=== PATIENT | male | born 1970 | race Caucasian/White ===

== ENCOUNTER → 2017-05-25 19:11 | Outpatient (CLI) | payer MEDICAID, SELFPAY ==
[2017-05-25 22:02] LABS: Amphetamine Urine VISTA NEGATIVE (<1000 ng/mL); Barbiturate Urine VISTA NEGATIVE (< 200 ng/mL); Benzodiazepine Urine VISTA NEGATIVE (< 200 ng/mL); Cocaine Urine VISTA NEGATIVE (< 300 ng/mL); Ecstacy Urine VISTA NEGATIVE (< 500 ng/mL); Methadone Urine VISTA NEGATIVE (< 300 ng/mL); PCP Urine VISTA NEGATIVE (< 25 ng/mL); THC Urine VISTA NEGATIVE (< 50 ng/mL); Vista UDS pH Range 6
== END ==
PROVIDERS: Family Provider Family Medicine Geriatric Medicine; PCP Family Medicine Geriatric Medicine; Visit Provider Anesthesiology
DX: M54.16 Radiculopathy, lumbar region (principal)
CPT/HCPCS: 80307

== ENCOUNTER 2017-07-05 10:40 | Emergency (ER) | payer MEDICAID, SELFPAY ==
[2017-07-05 10:40] VITALS: BP 153/104; PULSE 101; RESP 24; TEMP 36.7; O2SAT 100; BMI 36.8
--- NOTE | 2017-07-05 10:54 | ED.VISSUMM ---
- ER Visit Summary Date of Service: 07/05/17 Chief Complaint: [] Rectal pain for a few days history of rectal masses History of Present Illness: The patient is a 47 M [] said rectal pain for a few days he has history of hypertension and he reports a history of developing some type of unspecified rectal mass possibly cyst or abscesses that require surgery indications had 5 or 6 surgeries related to these rectal masses most recently 2016 at a [place] hospital and then 2014 at a hospital in [place]. He was told he did not require additional surgery he does not know why he is developing these masses, he has no history of immunocompromised conditions his only past history is for hypertension is well controlled he is able to eat and drink without difficulty no fever he does complain of some discomfort with stooling but no blood per rectum no trauma Physical Examination: [] Unremarkable he is drinking a liquidy beverage in the room his HEENT exam is unremarkable neck is supple lungs are clear the heart tones are unremarkable the abdomen is obese but soft the rectal exam shows nothing acute he has some very mild discomfort to the rectal exam the prostate is not obviously tender there is no obvious fullness fluctuance or mass the rectal vault showed some runny brown stool, lower extremities are unremarkable the rest of his exam was unremarkable Test Results: [] Emergency Department Course and Treatment: [] Patient's labs are unremarkable, per radiology on CT there is a about a 2 cm possible abscess posterior rectum please see that report there is a potential additional satellite lesion. Patient's been medicated IV antibiotics of been started. I spoke with Dr. matamoros of surgery he came down to see the patient discussed outpatient plan which includes Augmentin Percocet management at home for a few days if not improved further options were discussed with the patient that he will pursue directly dr. beck in addition the patient understands that he can return to the emergency department if his symptoms change or intensified anyway but he is comfortable with discharge home Treatment Plan: [] Disposition: [] Home stable Impression: [] Rectal abscess history of same, causing rectal pain This note was generated with [employer] dictation software. It may contain incorrect words, spelling, and punctuation that were not noted in review of the chart prior to signing ED Disposition - Plan for ED Patient: Chief Complaint: Wound Prescriptions: Oxycodone HCl/Acetaminophen [Percocet 5/325] 1 - 2 tab PO Q4H PRN PRN 7 Days #30 tab PRN Reason: Pain Amoxicillin/Potassium Clav [Augmentin 875-125 Tablet] 1 ea PO BID #20 tab Docusate Sodium [Colace] 100 mg PO BID #20 cap Referrals: Eric Monzon Chi, MD [Primary Care Provider] -
--- NOTE | 2017-07-05 11:20 | CT_ITS ---
STUDY: CT PELVIS WITH CONTRAST REASON FOR EXAM: Male, 47 years old. Rectal pain and bleeding. Check for perianal/perirectal abscess. RADIATION DOSAGE (If Supplied By Facility): CTDIvol = ( 22.53 ) mGy, DLP = ( 1052.50 ) mGycm TECHNIQUE: Transaxial imaging of the pelvis was performed without oral contrast. 100 ml of Isovue 300 contrast was administered intravenously. Sagittal/coronal reconstructions reviewed. No GI contrast given due to the emergent nature of exam. Individualized dose optimization techniques were used for this CT. COMPARISON: None available. FINDINGS: CT mildly limited without GI contrast. Director Of Design scanogram imaging appears unremarkable. Normal urinary bladder with moderate distention seen and no focal enhancing lesion. Normal visualized small intestine. Normal visualized colon except the rectum shows circumferential thickening with narrowed lumen displaced anteriorly and the posterior wall rounded low-attenuation lesions, the largest is seen in the midline posteriorly approximate 2 cm diameter with central Hounsfield units 22.3 and adjacent slightly right anterolateral Satellite abnormal fluid collection is seen, proximal 0.9 cm diameter, both suspicious for rectal abscesses involving the posterior wall. Effacement is also seen of the presacral fat planes adjacent, slightly greater left versus right which may be due to inflammation/minimal fluid or postsurgical changes given history. No CT finding of free intraperitoneal air noted in this CT pelvis study. There is no pelvic or visualized inguinal region lymphadenopathy by CT size criteria identified. Prostate is approximately 4.55 x 4.0 cm, mildly enlarged. Normal visualized pelvic arteries. Normal abdominal wall without ventral/visualized inguinal bowel herniation identified. Visualized bones show moderate degenerative L4-L5 and severe degenerative L5-S1 with mild anterolisthesis L5 over S1 noted, grade I seen with associated bilateral L5 pars defects. In addition, right at least moderate posterior disc protrusion appears to impinge the dural sac at L4-L5 with moderate to severe spinal canal stenosis. CT/Pelvis WITH IV Contrast IMPRESSION: Posterior rectal wall tiny abscesses, largest is approximate 2 cm diameter until proven otherwise. Very low probability neoplasm/metastasis is not entirely excluded without clinical correlation. Presacral fascia planes with possible minimal fluid suggesting inflammatory process or postsurgical changes given history. Mild prostamegaly. ER physician notified and acknowledged above results by Dr. Penny via telephone 07/05/2017 at approximately 1:00 PM. L4-L5 at least moderate posterior disc protrusion appears to impinge the dural sac with moderate to severe spinal canal stenosis. Bilateral L5 pars defects with mild anterolisthesis L5 over S1 noted, grade 1. Electronically Signed: Horacio Penny, at 13:12 EDT Tel , Service support ,
[2017-07-05 11:36] LABS: Absolute Lymphocyte Count 1.76 X10^3/ul (0.83-4.51); Absolute Neutrophil Count 5.8 X10^3/uL (2.0-7.7); Basophil# 0.04 X10^3/uL; Basophil% 0.5 % (0-1); Eosinophils% 2.4 % (0-5); Hematocrit 42.4 % (40-54); Hemoglobin 14.4 g/dl (13.0-16.5); Lymphocyte # 1.76 X10^3/ul (4.0); Lymphocyte % 20.9 % (19-41); Mean Corpuscular Hgb 33.6 pg (27.0-32.0); Mean Corpuscular Volume 99.1 fL (80-94); Monocyte# 0.57 X10^3/uL; Monocyte% 6.8 % (0-10); Neutrophil # 5.83 X10^3/uL (2.7-7.7); Neutrophil % 68.9 % (47-70); Platelet Count 223 K/mm3 (150-450); Red Blood Count 4.28 M/mm3 (4.6-6.2); White Blood Count 8.4 K/mm3 (4.4-11.0)
[2017-07-05] MEDS: 0.9% Normal Saline 1,000 ML 125 ML IV (11:36)
[2017-07-05] MEDS: Ondansetron 4 MG/2 ML Vial IV (11:36)
[2017-07-05] MEDS: morphine 8 MG/ML Syringe IV (11:36)
[2017-07-05 11:39] LABS: POSITIVE COUNT NO; POSITIVE DIFFERENTIAL NO; POSITIVE MORPHOLOGY NO
[2017-07-05 11:50] LABS: AST(SGOT) 30 U/L (15-37); Alanine Aminotransfer ALT/SGPT 24 U/L (16-61); Albumin, Serum 3.7 g/dL (3.2-5.0); Alkaline Phosphatase 109 U/L (45-117); Anion Gap 9 (5-15); BUN 11 mg/dL (7-18); BUN/Creat Ratio 8.1 RATIO (10-20); Bilirubin, Direct 0.07 mg/dL (0.00-0.30); Calcium,Total 8.6 mg/dL (8.5-10.1); Chloride 103 mmol/L (98-107); Creatinine, Serum 1.35 mg/dL (0.70-1.30); EST Glomerular Filtration Rate 61 mL/min (>60); Est Glom Filt Rate - Afr Amer 73 mL/min (>60); Globulin 5.2 g/dL (2.2-4.2); Glucose 91 mg/dL (74-106); Lipase 133 U/L (73-393); Potassium 4.2 mmol/L (3.5-5.1); Protein, Total 8.9 g/dL (6.4-8.2); Sodium Level 139 mmol/L (136-145)
[2017-07-05 11:51] LABS: Bacteria 0 SEEN /hpf (None Seen); Mucous, Urine 0 SEEN /hpf (<or=2+)
[2017-07-05 11:56] LABS: Color, Urine Yellow (Yellow); Glucose, Dipstick Normal (Normal); Ketone-Dipstick Negative (Negative); Leukocyte Esterase-Dipstick 25 /ul (Negative); Nitrite-Dipstick Negative (Negative); Occult Blood-Urine Negative /ul (Negative); Protein-Dipstick Negative (Negative); Specific Gravity, Urine 1.015 (1.002-1.030); Urine Bilirubin Dipstick Negative (Negative); Urine Clarity Clear (Clear); Urine Urobilinogen 1 mg/dl (Normal)
[2017-07-05 12:03] LABS: Red Blood Cells-Urine 0-5 SEEN /hpf (0-5); Squamous Epithelial Cells - UA 0-5 SEEN /hpf (0-5); White Blood Cells 5-10 SEEN /hpf (0-5)
[2017-07-05] MEDS: Morphine 4 MG/ML Syringe IV ×2 (14:07→15:28)
--- NOTE | 2017-07-05 14:44 | PCM.CONS.GEN ---
Problem List (1) Perirectal abscess Status: Acute Reason for Consult Date of Consultation: 07/05/17 Reason for Consultation: Perirectal abscess History of Present Illness: The patient is a 47 year old M who is here for rectal pain. He has had several surgeries in the past by colorectal surgeons for recurrent abscesses and fistulas. He says he does not have diarrhea or blood in his stool on a chronic basis and has no history of Crohn's disease. He reports the pain started a few days ago. He says he feels very full like he has to have a bowel movement. He has no fevers or chills. Past Medical History Allergies diphenhydramine HCl [From Benadryl] Allergy (Verified 07/05/17 11:40) Rash ibuprofen Allergy (Verified 07/05/17 11:40) Anaphylaxis Home Medications: Ambulatory Orders Medication Instructions Recorded traMADol [Ultram] 50 mg PO Q6H PRN PRN #10 tablet 05/14/13 Atorvastatin Calcium [Lipitor] 40 mg PO QHS 07/05/17 Gabapentin [Gralise] 600 mg PO BID 07/05/17 Losartan Potassium [Cozaar] 100 mg PO DAILY 07/05/17 Surgical History: - - Multiple rectal abscess drainages Smoking Status: Current every day smoker - *Family History Maternal History Items: No pertinent history Review of Systems Constitutional: Denies: Anorexia, Chills, Fever HEENT: Denies: Difficulty Swallowing Cardiovascular: Denies: Chest Pain Respiratory: Denies: Cough, Pleuritic Pain Gastrointestinal: Reports: - - Rectal pain. Denies: Abdominal Pain Genitourinary: Denies: Dysuria Neurological: Denies: Balance problems, Blurred vision Psychiatric: Denies: Anxiety, Depression Patient Problems: Active and Suspected Problems Perirectal abscess (Acute) - Physical Exam General: Alert, Cooperative HEENT: Atraumatic, PERRLA, EOMI Oral: Moist Mucosa Neck: Supple Lungs: Clear to auscultation, Normal air movement Cardiovascular: Regular rate, Regular Rhythm Abdomen: Soft, Non Tender, Non-Distended Extremities: No clubbing Skin: No rashes Musculoskeletal: No Muscle Wasting Neurological: Cranial nerves II-XII grossly intact Psych/Mental Status: Normal Affect, Appropriate Vital Signs Temp Pulse Resp BP Pulse Ox 98.1 F 101 H 24 H 153/104 H 100 07/05/17 10:40 07/05/17 10:40 07/05/17 10:40 07/05/17 10:40 07/05/17 10:40 Oxygen Delivery Method Room Air Weight: 263 lb 10.766 oz Body Mass Index (BMI) 36.8 Laboratory Tests Past 24 Hrs 07/05/17 07/05/17 07/05/17 11:25 11:25 11:45 WBC 8.4 RBC 4.28 L Hgb 14.4 Hct 42.4 MCV 99.1 H MCH 33.6 H MCHC 34.0 RDW 16.0 H RDW Differential 57.0 H Plt Count 223 MPV 11.0 Immature Gran % (Auto) 0.500 Neut % (Auto) 68.9 Lymph % (Auto) 20.9 [place] % (Auto) 6.8 Eos % (Auto) 2.4 Baso % (Auto) 0.5 Absolute Neuts (auto) 5.8 Absolute Lymphs (auto) 1.76 Total Counted Not Reportable Sodium 139 Potassium 4.2 Chloride 103 Carbon Dioxide 27.0 Anion Gap 9 BUN 11 Creatinine 1.35 H Estim Creat Clear Calc 73.60 Est GFR (MDRD) Af Amer 73 Est GFR (MDRD) Non-Af 61 BUN/Creatinine Ratio 8.1 L Glucose 91 Calcium 8.6 Total Bilirubin 0.40 Direct Bilirubin 0.07 AST 30 ALT 24 Alkaline Phosphatase 109 Total Protein 8.9 H Albumin 3.7 Globulin 5.2 H Lipase 133 Urine Color Yellow Urine Clarity Clear Urine pH 6.0 Ur Specific [place] 1.015 Urine Protein Negative Urine Glucose (UA) Normal Urine Ketones Negative Urine Occult Blood Negative Urine Nitrite Negative Urine Bilirubin Negative Urine Urobilinogen 1 H Ur Leukocyte Esterase 25 H Urine RBC 0-5 SEEN Urine WBC 5-10 SEEN Ur Squamous Epith Cells 0-5 SEEN Urine Bacteria 0 SEEN Urine Mucus 0 SEEN Clinical Impression(s) from Imaging Studies Pelvis CT 07/05/17 11:20 IMPRESSION: Posterior rectal wall tiny abscesses, largest is approximate 2 cm diameter until proven otherwise. Very low probability neoplasm/metastasis is not entirely excluded without clinical correlation. Presacral fascia planes with possible minimal fluid suggesting inflammatory process or postsurgical changes given history. Mild prostamegaly. ER physician notified and acknowledged above results by Dr. Penny via telephone 07/05/2017 at approximately 1:00 PM. L4-L5 at least moderate posterior disc protrusion appears to impinge the dural sac with moderate to severe spinal canal stenosis. Bilateral L5 pars defects with mild anterolisthesis L5 over S1 noted, grade 1. Electronically Signed: Horacio Penny, at 13:12 EDT Tel , Service support , Assessment/Plan Active and Suspected Problems Perirectal abscess (Acute) 47-year-old male with perirectal abscesses 1. Patient CT shows multiple abscesses posteriorly in the perirectal area. These are very high up and are not seen externally. There are also small. The largest is 2 cm. His white count is normal he is having no fevers or chills. 2. I recommend trying to treat these conservatively with antibiotics as they are not amenable to open drainage externally. If the patient worsens in any way I will take him for internal drainage and repeat a CAT scan. I will provide the patient with pain medication and antibiotics and will see him in 1 week in the office. If he worsens at any time between now and then I have advised him to call the hospital or my office. Neymar Perez MD Pager: [facility] [address], [address] [address] Office:
--- NOTE | 2017-07-05 14:54 | CON.PCM_ITS ---
Problem List (1) Perirectal abscess Status: Acute Reason for Consult Date of Consultation: 07/05/17 Reason for Consultation: Perirectal abscess History of Present Illness: The patient is a 47 year old M who is here for rectal pain. He has had several surgeries in the past by colorectal surgeons for recurrent abscesses and fistulas. He says he does not have diarrhea or blood in his stool on a chronic basis and has no history of Crohn's disease. He reports the pain started a few days ago. He says he feels very full like he has to have a bowel movement. He has no fevers or chills. Past Medical History Allergies diphenhydramine HCl [From Benadryl] Allergy (Verified 07/05/17 11:40) Rash ibuprofen Allergy (Verified 07/05/17 11:40) Anaphylaxis Home Medications: Ambulatory Orders Medication Instructions Recorded traMADol [Ultram] 50 mg PO Q6H PRN PRN #10 tablet 05/14/13 Atorvastatin Calcium [Lipitor] 40 mg PO QHS 07/05/17 Gabapentin [Gralise] 600 mg PO BID 07/05/17 Losartan Potassium [Cozaar] 100 mg PO DAILY 07/05/17 Surgical History: - - Multiple rectal abscess drainages Smoking Status: Current every day smoker - *Family History Maternal History Items: No pertinent history Review of Systems Constitutional: Denies: Anorexia, Chills, Fever HEENT: Denies: Difficulty Swallowing Cardiovascular: Denies: Chest Pain Respiratory: Denies: Cough, Pleuritic Pain Gastrointestinal: Reports: - - Rectal pain. Denies: Abdominal Pain Genitourinary: Denies: Dysuria Neurological: Denies: Balance problems, Blurred vision Psychiatric: Denies: Anxiety, Depression Patient Problems: Active and Suspected Problems Perirectal abscess (Acute) - Physical Exam General: Alert, Cooperative HEENT: Atraumatic, PERRLA, EOMI Oral: Moist Mucosa Neck: Supple Lungs: Clear to auscultation, Normal air movement Cardiovascular: Regular rate, Regular Rhythm Abdomen: Soft, Non Tender, Non-Distended Extremities: No clubbing Skin: No rashes Musculoskeletal: No Muscle Wasting Neurological: Cranial nerves II-XII grossly intact Psych/Mental Status: Normal Affect, Appropriate Vital Signs Temp Pulse Resp BP Pulse Ox 98.1 F 101 H 24 H 153/104 H 100 07/05/17 10:40 07/05/17 10:40 07/05/17 10:40 07/05/17 10:40 07/05/17 10:40 Oxygen Delivery Method Room Air Weight: 263 lb 10.766 oz Body Mass Index (BMI) 36.8 Laboratory Tests Past 24 Hrs 07/05/17 07/05/17 07/05/17 11:25 11:25 11:45 WBC 8.4 RBC 4.28 L Hgb 14.4 Hct 42.4 MCV 99.1 H MCH 33.6 H MCHC 34.0 RDW 16.0 H RDW Differential 57.0 H Plt Count 223 MPV 11.0 Immature Gran % (Auto) 0.500 Neut % (Auto) 68.9 Lymph % (Auto) 20.9 [place] % (Auto) 6.8 Eos % (Auto) 2.4 Baso % (Auto) 0.5 Absolute Neuts (auto) 5.8 Absolute Lymphs (auto) 1.76 Total Counted Not Reportable Sodium 139 Potassium 4.2 Chloride 103 Carbon Dioxide 27.0 Anion Gap 9 BUN 11 Creatinine 1.35 H Estim Creat Clear Calc 73.60 Est GFR (MDRD) Af Amer 73 Est GFR (MDRD) Non-Af 61 BUN/Creatinine Ratio 8.1 L Glucose 91 Calcium 8.6 Total Bilirubin 0.40 Direct Bilirubin 0.07 AST 30 ALT 24 Alkaline Phosphatase 109 Total Protein 8.9 H Albumin 3.7 Globulin 5.2 H Lipase 133 Urine Color Yellow Urine Clarity Clear Urine pH 6.0 Ur Specific [place] 1.015 Urine Protein Negative Urine Glucose (UA) Normal Urine Ketones Negative Urine Occult Blood Negative Urine Nitrite Negative Urine Bilirubin Negative Urine Urobilinogen 1 H Ur Leukocyte Esterase 25 H Urine RBC 0-5 SEEN Urine WBC 5-10 SEEN Ur Squamous Epith Cells 0-5 SEEN Urine Bacteria 0 SEEN Urine Mucus 0 SEEN Clinical Impression(s) from Imaging Studies Pelvis CT 07/05/17 11:20 IMPRESSION: Posterior rectal wall tiny abscesses, largest is approximate 2 cm diameter until proven otherwise. Very low probability neoplasm/metastasis is not entirely excluded without clinical correlation. Presacral fascia planes with possible minimal fluid suggesting inflammatory process or postsurgical changes given history. Mild prostamegaly. ER physician notified and acknowledged above results by Dr. Penny via telephone 07/05/2017 at approximately 1:00 PM. L4-L5 at least moderate posterior disc protrusion appears to impinge the dural sac with moderate to severe spinal canal stenosis. Bilateral L5 pars defects with mild anterolisthesis L5 over S1 noted, grade 1. Electronically Signed: Horacio Penny, at 13:12 EDT Tel , Service support , Assessment/Plan Active and Suspected Problems Perirectal abscess (Acute) 47-year-old male with perirectal abscesses 1. Patient CT shows multiple abscesses posteriorly in the perirectal area. These are very high up and are not seen externally. There are also small. The largest is 2 cm. His white count is normal he is having no fevers or chills. 2. I recommend trying to treat these conservatively with antibiotics as they are not amenable to open drainage externally. If the patient worsens in any way I will take him for internal drainage and repeat a CAT scan. I will provide the patient with pain medication and antibiotics and will see him in 1 week in the office. If he worsens at any time between now and then I have advised him to call the hospital or my office. Neymar Perez MD Pager: [facility] [address], [address] [address] Office:
--- NOTE | 2017-07-05 15:13 | DCINST.ED_ITS ---
ED Disposition - Plan for ED Patient: Chief Complaint: Wound Instructions: ED Lilo Anal Abscess Abx Only Prescriptions: Oxycodone HCl/Acetaminophen [Percocet 5/325] 1 - 2 tab PO Q4H PRN PRN 7 Days # 30 tab PRN Reason: Pain Amoxicillin/Potassium Clav [Augmentin 875-125 Tablet] 1 ea PO BID #20 tab Docusate Sodium [Colace] 100 mg PO BID #20 cap Referrals: Eric Monzno Chi, MD [Primary Care Provider] -
[2017-07-05 16:41] VITALS: BP 159/100; PULSE 98; RESP 16; O2SAT 97
[2017-07-05 16:44] VITALS: BP 159/101; PULSE 98; RESP 16; O2SAT 97
== END 2017-07-05 16:45 | disposition home or self-care (01) ==
PROVIDERS: Emergency Provider Emergency Medicine; Family Provider Family Medicine Geriatric Medicine; PCP Family Medicine Geriatric Medicine
DX: K61.1 Rectal abscess (principal); K62.89 Other specified diseases of anus and rectum; I10 Essential (primary) hypertension; Z87.19 Personal history of other diseases of the digestive system; Z79.899 Other long term (current) drug therapy
CPT/HCPCS: 72193; 80048; 80076; 81001; 83690; 85025; 87086; 87088; 96361; 96365; 96366; 96367; 96374; 96375; 96376; 99283; J7030; Q9967; A4216; J0744; J2405

== ENCOUNTER → 2017-07-11 10:25 | Outpatient (CLI) | payer MEDICAID, SELFPAY ==
[2017-07-11 11:30] LABS: Absolute Lymphocyte Count 2.97 X10^3/ul (0.83-4.51); Absolute Neutrophil Count 4.8 X10^3/uL (2.0-7.7); Basophil# 0.04 X10^3/uL; Basophil% 0.5 % (0-1); Eosinophil# 0.21 X10^3/uL; Eosinophils% 2.4 % (0-5); Hematocrit 41.2 % (40-54); Hemoglobin 13.7 g/dl (13.0-16.5); Lymphocyte # 2.97 X10^3/ul (4.0); Lymphocyte % 34.3 % (19-41); Mean Corp Hgb Conc 33.3 g/gl (32-36); Mean Corpuscular Hgb 33.1 pg (27.0-32.0); Mean Corpuscular Volume 99.5 fL (80-94); Mean Platelet Vol. 10.6 fl (6.2-12.0); Monocyte# 0.54 X10^3/uL; Monocyte% 6.2 % (0-10); Neutrophil # 4.79 X10^3/uL (2.7-7.7); Neutrophil % 55.3 % (47-70); Platelet Count 305 K/mm3 (150-450); RBC Distribution Width CV 16.2 % (11.6-14.6); RBC Distribution Width SD 58.8 fl (35.1-43.9); Red Blood Count 4.14 M/mm3 (4.6-6.2); White Blood Count 8.7 K/mm3 (4.4-11.0)
[2017-07-11 11:31] LABS: POSITIVE COUNT NO; POSITIVE DIFFERENTIAL NO; POSITIVE MORPHOLOGY NO
[2017-07-11 11:54] LABS: ALB/GLOB Ratio 0.7 RATIO (0.9-2.4); AST(SGOT) 24 U/L (15-37); Alanine Aminotransfer ALT/SGPT 26 U/L (16-61); Albumin, Serum 3.6 g/dL (3.2-5.0); Alkaline Phosphatase 99 U/L (45-117); Anion Gap 8 (5-15); BUN 12 mg/dL (7-18); BUN/Creat Ratio 9.5 RATIO (10-20); Calcium,Total 8.3 mg/dL (8.5-10.1); Chloride 106 mmol/L (98-107); Creatinine, Serum 1.26 mg/dL (0.70-1.30); EST Glomerular Filtration Rate 66 mL/min (>60); Est Glom Filt Rate - Afr Amer 80 mL/min (>60); Globulin 5.3 g/dL (2.2-4.2); Glucose 84 mg/dL (74-106); Potassium 4.2 mmol/L (3.5-5.1); Protein, Total 8.9 g/dL (6.4-8.2); Sodium Level 139 mmol/L (136-145)
== END ==
PROVIDERS: Family Provider Family Medicine Geriatric Medicine; PCP Family Medicine Geriatric Medicine; Visit Provider Family Medicine Geriatric Medicine
DX: I10 Essential (primary) hypertension (principal)
CPT/HCPCS: 36415; 80053; 84443; 85025

== ENCOUNTER → 2017-07-17 10:04 | Outpatient (CLI) | payer MEDICAID, SELFPAY ==
--- NOTE | 2017-07-17 10:45 | MRI_ITS ---
MR Spine Lumbar WO/W Contrast INDICATION: radiculopathy, post lami syndrome, lbp, right leg pain, hx prev surgery 12-29-16, pain worse since surgery COMPARISON: CT pelvis July 05, 2017 TECHNIQUE: Multiplanar multisequence MRI examination of the lumbar spine without and with IV contrast. 10 mL Gadavist were given intravenously. FINDINGS: There is evidence of L5-S1 evidence of right-sided laminectomy and apparently right sided microdiscectomy without evidence of hardware placement. There is stable 7 mm anterolisthesis of L5 on S1, otherwise normal lumbar lordosis. At the level of surgery there is fluid and enhancing material seen extending along the surgical access posteriorly to the L4-5 level and right laterally along the right L4 and L5 spinous processes. Enhancing material is seen in the right hemilaminectomy defect, the right epidural space and there is enhancement of the right lateral aspect of the L4 superior endplate and L5 inferior endplate. There is no evidence of associated fluid collection in the L4-5 disc space and no evidence of bone marrow enhancement or edema. Findings appear therefore postsurgical and there is no convincing evidence of infection. The conus is located at the T12 level and is morphologically unremarkable. There is normal distribution of the nerve roots of the cauda equina. The dural sac is normal in caliber at all levels and there is no evidence of mass effect on to the cauda equina. T12-L1 level, L1-L2 level, L2-3 level and L3-4 level are unremarkable. L4-5 level demonstrates degenerative disc disease with disc dehydration, and decrease in disc height. The disc is circumferentially bulging and there is a superimposed right paracentral focal disc protrusion with disc material extending into the right lateral recess. Disc osteophytes are seen extending into the right new foramen. Combination of the findings result in minimal spinal canal and left neuroforaminal narrowing and moderate to severe right neuroforaminal stenosis. L5-S1 level demonstrate degenerative and postsurgical changes as detailed above. Spinal canal and neuroforamina are mildly narrowed. MRI/Spine Lumbar W/WO Contrast IMPRESSION: Postsurgical changes from L5-S1 right hemilaminectomy with postsurgical enhancement likely due to granulation tissue. No convincing evidence of infection. Mild spinal canal and bilateral neuroforaminal narrowing at this level. Degenerative disc disease at L4-5 with posterior disc bulging and focal disc protrusion into the right lateral recess resulting in right lateral recess stenosis and severe right neuroforaminal stenosis at this level. at 1552 Reported and signed by: Lauren Mckeon MD Electronically Signed: Lauren Mckeon MD at 14:50 EDT Tel , Service support ,
== END ==
PROVIDERS: Family Provider Family Medicine Geriatric Medicine; PCP Family Medicine Geriatric Medicine; Visit Provider Anesthesiology
DX: M54.16 Radiculopathy, lumbar region (principal); M96.1 Postlaminectomy syndrome, not elsewhere classified
CPT/HCPCS: 72158; A9585

== ENCOUNTER → 2017-07-23 09:34 | Outpatient (CLI) | payer MEDICAID, SELFPAY ==
--- NOTE | 2017-07-23 09:36 | CT_ITS ---
STUDY: CT ABDOMEN AND PELVIS WITH CONTRAST REASON FOR EXAM: Male, 47 years old. Perirectal abscess. RADIATION DOSAGE (If Supplied By Facility): CTDIvol = ( 16.91 ) mGy, DLP = ( 1350.07 ) mGycm TECHNIQUE: Transaxial images were obtained from the dome of the diaphragm to the symphysis pubis with oral contrast. 100 ml of Isovue 300 contrast was administered. Sagittal and coronal images were reconstructed. Individualized dose optimization techniques were used for this CT. COMPARISON: Comparison is made with prior study dated July 05, 2017. FINDINGS: The visualized lung bases are unremarkable. The visualized portions of the heart are within normal limits. There is decreased attenuation of the liver consistent with steatosis. Normal gallbladder and extrahepatic biliary system. Normal spleen. Normal pancreas. Normal bilateral adrenal glands. Normal right kidney. Normal left kidney. There is a small hiatal hernia. Normal small intestine. A moderate amount of fecal material is seen in the sigmoid colon. Increased markings are seen in the pelvic fat. There is a 1.4 cm x 1.8 cm rounded hypodensity along the posterior aspect of the rectum. This may correlate to the clinically diagnosed perirectal abscess. This has decreased in size as compared to prior study. The appendix is visualized and appears normal. Normal abdominal aorta. Normal inferior vena cava. Normal retroperitoneum. Normal urinary bladder. Small inguinal lymph nodes are seen. These are unchanged. Normal abdominal wall. Stable disc space narrowing and degeneration at the L4-L5 and L5-S1 levels. Stable mild anterior listhesis of L5 on S1 with spondylolysis of the pars interarticularis of the L5 vertebrae. CT/Abdomen/Pelvis WITH Contrast IMPRESSION: Persistent posterior rectal wall thickening with focal area of decreased attenuation. There has been improvement as compared to prior study. Electronically Signed: Grzegorz Mcnally MD at 12:30 EDT Tel [phone], Service support ,
== END ==
PROVIDERS: Family Provider Family Medicine Geriatric Medicine; PCP Family Medicine Geriatric Medicine; Visit Provider Surgery
DX: K61.1 Rectal abscess (principal)
CPT/HCPCS: 74177; Q9967; A4216

== ENCOUNTER 2017-08-03 13:30 | Day surgery (SDC) | payer MEDICAID, SELFPAY ==
[2017-08-03 13:58] VITALS: BP 150/99; PULSE 88; RESP 16; TEMP 36.9; O2SAT 95; BMI 37.3
--- NOTE | 2017-08-03 14:47 | RAD_ITS ---
PROCEDURE: Caudal block. DATE OF EXAMINATION: August 03, 2017. INDICATION: Male, 47 years old. Caudal block. Comment: Fluoroscopy services provided for clinical procedure. Please refer to operating physician's procedure note for additional detail. PHYSICIAN: Bhumika FLUOROSCOPY TIME (if supplied): (0:10) minutes/seconds PROCEDURE/TECHNIQUE: 3, intraprocedural, fluoroscopic spot images of the sacrum. A single spinal needle is identified in the midline with tip in the region the sacral hiatus. A small amount of contrast has been injected to evaluate appropriate needle tip placement. There is no significant incidental finding. RAD/Fluor Guidance for Spine Inj IMPRESSION: There is no significant incidental finding. Comment: Fluoroscopy services provided for clinical procedure. Please refer to operating physician's procedure note for additional detail. Electronically Signed: Fermín Rawls MD at 15:31 EDT , Service support ,
[2017-08-03] MEDS: Triamcinolone Acetonide 40 MG/ML Vial ×2 (14:53→14:54)
--- NOTE | 2017-08-03 14:59 | PCM.DC ---
- Discharge Diagnoses Current Active Problems: Lower back pain and radicular leg pain Lumbar postlaminectomy syndrome with lumbar radiculopathy You will use the following diet at home:: No restrictions Your food should be the consistency of: Regular Discharge Activity: Return to Normal Activity Return to work on:: 08/06/17 May shower in (days): 1 May resume sexual activity in: No Restrictions Weight Bearing Status: Partial weight bearing Call your doctor if your incision/area has: Continuous Slow Oozing, Foul Smelling Discharge - Have a good day vector Call your doctor if you observe: Uncontrolled pain - call the office if you need anything okay I am up there until 6:00 Allergies/Adverse Reactions: Allergies diphenhydramine HCl [From Benadryl] Allergy (Verified 07/05/17 11:40) Rash ibuprofen Allergy (Verified 07/05/17 11:40) Anaphylaxis Medications to take at Discharge traMADol [Ultram] 50 mg PO Q6H PRN PRN #10 tab 05/14/13 Atorvastatin Calcium [Lipitor] 40 mg PO QHS 07/05/17 Gabapentin [Gralise] 600 mg PO BID 07/05/17 Losartan Potassium [Cozaar] 100 mg PO DAILY 07/05/17 amoxicillin 875 mg-potassium clavulanate 125 mg tablet 1 tab PO BID #20 tab 07/12/17 Levothyroxine [Synthroid] 50 mcg PO DAILY 08/03/17 Primary Care Physician: Eric Monzon Chi, MD [Primary Care Provider] -
--- NOTE | 2017-08-03 15:01 | PCM.OPRPT ---
Problem List (1) Postlaminectomy syndrome, not elsewhere classified Status: Acute (2) Postlaminectomy syndrome, not elsewhere classified Status: Acute (3) Radiculopathy of lumbar region Status: Acute (4) Radiculopathy of lumbar region Status: Acute (5) Intervertebral disc disorder with radiculopathy of lumbar region Status: Acute (6) Intervertebral disc disorder with radiculopathy of lumbar region Status: Acute (7) Low back pain with right-sided sciatica Status: Acute Qualifiers: Chronicity: chronic Back pain laterality: right Qualified Code(s): M54.41 - Lumbago with sciatica, right side; G89.29 - Other chronic pain (8) Low back pain with right-sided sciatica Status: Acute Report of Operation Date of Procedure: 08/03/17 Pre-Operative Diagnosis: Lumbar postlaminectomy syndrome, lumbar radiculopathy due to lumbar disc disease Post-Operative Diagnosis: Same Surgery/Procedure Performed:: Caudal epidural steroid injection under fluoroscopy guidance Description of Surgical Findings:: Under sterile conditions. Patient placed in the prone position, pressure points were padded, patient was ready from the nursing and the anesthesia team. After identification of the side and the target area for the block under guided fluoroscopy, the entry site was marked with marking pen. I used Betadine for sterilization of the skin, sterile draping were applied. Using 25-gauge needle to infiltrate the skin with local anesthesia using preservative-free lidocaine 0.5% injected 5 mL at site of entry. Using guided fluoroscopy, accessed the the posterior caudal epidural space using 22-gauge spinal needles under midline lumbar caudal approach approach, accessed the site was assisted with AP and lateral fluoroscopy, negative aspiration of CSF and blood. Injected contrast solution [2.5] mL under live fluoroscopy which showed good spread of the contrast to the posterior caudal epidural space and to the targeted area of the injection caudal epidural space up to the lower lumbar space. Injected [6] mL of mixture of preservative-free lidocaine and Kenalog [80] mg for the procedure which showed appropriate spread in the epidural space. [place] was removed, pressure dressing were applied. Patient tolerated the procedure well and was taken to the recovery. Type of Anesthesia:: Local - Complications None
[2017-08-03 15:09] VITALS: BP 160/102; PULSE 87; RESP 16; TEMP 37.4; O2SAT 98
== END 2017-08-03 15:23 | disposition home or self-care (01) ==
LOC: SDC 13:31 → AC 13:32
PROVIDERS: Family Provider Family Medicine Geriatric Medicine; PCP Family Medicine Geriatric Medicine; Visit Provider Anesthesiology
PROC: 3E0S3BZ Introduction of Anesthetic Agent into Epidural Space, Percutaneous Approach (ICD-10-PCS; CPT 62282; principal; 2017-08-03 14:25)
DX: M96.1 Postlaminectomy syndrome, not elsewhere classified (principal); Y83.8 Other surgical procedures as the cause of abnormal reaction of the patient, or of later complication, without mention of misadventure at the time of the procedure; M51.16 Intervertebral disc disorders with radiculopathy, lumbar region; F17.200 Nicotine dependence, unspecified, uncomplicated; Z98.84 Bariatric surgery status; G89.29 Other chronic pain; I10 Essential (primary) hypertension
CPT/HCPCS: 62323; 64483; 77003; J7120; J3490

== ENCOUNTER → 2017-08-22 10:28 | Outpatient (CLI) | payer MEDICAID, SELFPAY ==
[2017-08-22 13:10] LABS: Absolute Lymphocyte Count 2.31 X10^3/ul (0.83-4.51); Absolute Neutrophil Count 4.9 X10^3/uL (2.0-7.7); Basophil# 0.03 X10^3/uL; Basophil% 0.4 % (0-1); Eosinophil# 0.09 X10^3/uL; Eosinophils% 1.1 % (0-5); Hematocrit 42.4 % (40-54); Hemoglobin 14.1 g/dl (13.0-16.5); Lymphocyte # 2.31 X10^3/ul (4.0); Mean Corp Hgb Conc 33.3 g/gl (32-36); Mean Corpuscular Hgb 33.3 pg (27.0-32.0); Mean Platelet Vol. 10.9 fl (6.2-12.0); Monocyte% 7.5 % (0-10); Neutrophil # 4.88 X10^3/uL (2.7-7.7); Neutrophil % 61.4 % (47-70); Platelet Count 218 K/mm3 (150-450); RBC Distribution Width CV 15.9 % (11.6-14.6); RBC Distribution Width SD 57.7 fl (35.1-43.9); Red Blood Count 4.24 M/mm3 (4.6-6.2)
[2017-08-22 13:11] LABS: POSITIVE COUNT NO; POSITIVE DIFFERENTIAL NO; POSITIVE MORPHOLOGY NO
[2017-08-22 13:39] LABS: ALB/GLOB Ratio 0.8 RATIO (0.9-2.4); AST(SGOT) 18 U/L (15-37); Alanine Aminotransfer ALT/SGPT 28 U/L (16-61); Albumin, Serum 3.9 g/dL (3.2-5.0); Alkaline Phosphatase 82 U/L (45-117); Anion Gap 6 (5-15); BUN 10 mg/dL (7-18); BUN/Creat Ratio 9.7 RATIO (10-20); Calcium,Total 8.6 mg/dL (8.5-10.1); Chloride 106 mmol/L (98-107); Creatinine, Serum 1.03 mg/dL (0.70-1.30); EST Glomerular Filtration Rate 83 mL/min (>60); Est Glom Filt Rate - Afr Amer 100 mL/min (>60); Globulin 4.8 g/dL (2.2-4.2); Glucose 76 mg/dL (74-106); Potassium 4.4 mmol/L (3.5-5.1); Protein, Total 8.7 g/dL (6.4-8.2); Sodium Level 139 mmol/L (136-145)
== END ==
PROVIDERS: Family Provider Family Medicine Geriatric Medicine; PCP Family Medicine Geriatric Medicine; Visit Provider Family Medicine Geriatric Medicine
DX: I10 Essential (primary) hypertension (principal)
CPT/HCPCS: 36415; 80053; 84443; 85025

== ENCOUNTER 2017-08-31 12:36 | Day surgery (SDC) | payer MEDICAID, SELFPAY ==
[2017-08-31 12:54] VITALS: BP 159/108; PULSE 83; RESP 16; TEMP 37.3; O2SAT 98; BMI 35.9
--- NOTE | 2017-08-31 13:56 | PCM.DC ---
- Discharge Diagnoses Current Active Problems: Sacroiliac joint dysfunction and sacroiliac joint pain and pyriformis syndrome Reason(s) for Visit for Discharge Instructions: Lower right back and right gluteal pain You will use the following diet at home:: No restrictions Discharge Activity: Return to Normal Activity May shower in (days): 1 May resume sexual activity in: No Restrictions Weight Bearing Status: Weight bearing as tolerated Call your doctor if your incision/area has: Continuous Slow Oozing, Increased Pain/ Swelling Call your doctor if you observe: Coldness, Increased Pain Suture Line Care: Avoid Pulling/Pushing, Avoid Pinching/Bending Cleanse incision/area with: Soap & Water Allergies/Adverse Reactions: Allergies diphenhydramine HCl [From Benadryl] Allergy (Verified 08/30/17 14:57) Rash ibuprofen Allergy (Verified 08/30/17 14:57) Anaphylaxis Medications to take at Discharge traMADol [Ultram] 50 mg PO Q6H PRN PRN #10 tab 05/14/13 Atorvastatin Calcium [Lipitor] 40 mg PO QHS 07/05/17 Gabapentin [Gralise] 600 mg PO BID 07/05/17 Losartan Potassium [Cozaar] 100 mg PO DAILY 07/05/17 Levothyroxine [Synthroid] 50 mcg PO DAILY 08/03/17 Primary Care Physician: Eric Monzon Chi, MD [Primary Care Provider] - Please Follow Up With: Chayo Monteiro MD
--- NOTE | 2017-08-31 13:58 | RAD_ITS ---
STUDY: X-RAY - SACROILIAC JOINTS REASON FOR EXAM: Male, 47 years old. Right SI joint injection. Right piriform muscle injection. TECHNIQUE: 2 coned-down intraoperative view(s) of the sacroiliac joints were obtained. COMPARISON: None. FINDINGS: Intraoperative imaging provided for injection of the right sacroiliac joint and right piriform muscle. RAD/S-I Jts 3 or More Views IMPRESSION: Fluoroscopic services provided as described. Electronically Signed: Grzegorz Mcnally MD at 14:42 EDT Tel [phone], Service support ,
[2017-08-31] MEDS: Triamcinolone Acetonide 40 MG/ML Vial (14:05)
[2017-08-31] MEDS: Bupivacaine 0.25% 30 ML Vial (14:05)
--- NOTE | 2017-08-31 14:13 | OP.PCM_ITS ---
Problem List (1) Sacroiliitis, not elsewhere classified Status: Acute (2) Sacroiliitis, not elsewhere classified Status: Acute (3) Inflammation of right sacroiliac joint Status: Acute (4) Inflammation of right sacroiliac joint Status: Acute (5) Acute myofascial pain Status: Acute (6) Acute buttock pain Status: Acute (7) Myalgia Status: Acute (8) Muscle spasm Status: Acute (9) Muscle spasm Status: Acute Operative Report Date of Procedure: 08/31/17 Right sacroiliac joint injection under fluoroscopy Right piriformis muscle injection under fluoroscopy Under sterile conditions. Patient placed in the prone position, pressure points were padded, patient was ready from the nursing and the anesthesia team. After identification of the side and the target area for the block under guided fluoroscopy, the entry site was marked with marking pen. I used Betadine for sterilization of the skin, sterile draping were applied. Using 25-gauge needle to infiltrate the skin with local anesthesia using preservative-free lidocaine 0.5% injected 2.5 mL at each site of entry, the right sacroiliac joint lower third, at the right piriformis muscle using guided fluoroscopy in oblique angle. Using oblique fluoroscopy, accessed the right Sacroiliac joint at the lower third as well as the right pyriformis muscle using 22-gauge spinal needle. After confirmation of appropriate needle placement to the targeted area with AP and lateral fluoroscopy, injected 7 mL mixture of preservative-free Marcaine 0.5 % and Kenalog [60] mg at the sacroiliac joint, 20 mg Kenalog and Marcaine 0.5% 5 mL injected at the right pyriformis muscle. [place] was removed, pressure dressing were applied. Patient tolerated the procedure well and was taken to the recovery.
[2017-08-31 14:16] VITALS: BP 138/97; BP 159/108; PULSE 84; RESP 14; TEMP 37.1; O2SAT 100
[2017-08-31 14:20] VITALS: BP 144/97; BP 159/108; PULSE 81; RESP 14; O2SAT 99
[2017-08-31 14:25] VITALS: BP 143/99; BP 159/108; PULSE 73; RESP 14; O2SAT 97
[2017-08-31 14:30] VITALS: BP 143/97; BP 159/108; PULSE 73; RESP 14; TEMP 37; O2SAT 98
[2017-08-31 14:45] VITALS: BP 159/108
== END 2017-08-31 14:48 | disposition home or self-care (01) ==
LOC: SDC 12:38 → AC 12:39
PROVIDERS: Family Provider Family Medicine Geriatric Medicine; PCP Family Medicine Geriatric Medicine; Visit Provider Anesthesiology
PROC: 3E0U3GC Introduction of Other Therapeutic Substance into Joints, Percutaneous Approach (ICD-10-PCS; CPT 27096; principal; 2017-08-31 13:25)
DX: M46.1 Sacroiliitis, not elsewhere classified (principal); G89.29 Other chronic pain; I10 Essential (primary) hypertension; F17.200 Nicotine dependence, unspecified, uncomplicated; M62.838 Other muscle spasm; Z79.899 Other long term (current) drug therapy; M48.062 Spinal stenosis, lumbar region with neurogenic claudication; M51.16 Intervertebral disc disorders with radiculopathy, lumbar region; M96.1 Postlaminectomy syndrome, not elsewhere classified; E78.00 Pure hypercholesterolemia, unspecified; D51.0 Vitamin B12 deficiency anemia due to intrinsic factor deficiency; Z98.84 Bariatric surgery status
CPT/HCPCS: 01160; 27096; 64483; 72202; J7120

== ENCOUNTER → 2017-09-06 15:41 | Outpatient (CLI) | payer MEDICAID, SELFPAY | PROVIDERS: Family Provider Family Medicine Geriatric Medicine; PCP Family Medicine Geriatric Medicine; Visit Provider Family Medicine Geriatric Medicine | DX: E03.9 Hypothyroidism, unspecified (principal) | CPT/HCPCS: 36415; 84443 ==

== ENCOUNTER 2017-11-23 12:57 | Day surgery (SDC) | payer MEDICAID, SELFPAY ==
[2017-11-23 13:17] VITALS: BP 139/104; PULSE 64; RESP 16; TEMP 36.5; O2SAT 99; BMI 35.4
--- NOTE | 2017-11-23 14:49 | PCM.DC ---
- Discharge Diagnoses Current Active Problems: Lower back and radiating leg pain Reason(s) for Visit for Discharge Instructions: Procedure with caudal epidural steroid injection under fluoroscopy guidance You will use the following diet at home:: No restrictions Your food should be the consistency of: Regular Discharge Activity: Return to Normal Activity Return to work on:: 11/26/17 May shower in (days): 1 May resume sexual activity in: No Restrictions Weight Bearing Status: Weight bearing as tolerated Call your doctor if your incision/area has: Continuous Slow Oozing, Sudden Increased Bleeding, Increased Pain/ Swelling, Increased Redness, Swelling at the incision site Call your doctor if you observe: Uncontrolled pain Suture Line Care: Avoid Pulling/Pushing, Avoid Pinching/Bending Remove Dressing in (days):: 1 Cleanse incision/area with: Soap & Water Allergies/Adverse Reactions: Allergies diphenhydramine HCl [From Benadryl] Allergy (Verified 11/23/17 13:14) Rash ibuprofen Allergy (Verified 11/23/17 13:14) Anaphylaxis Medications to take at Discharge traMADol [Ultram] 50 mg PO Q6H PRN PRN #10 tab 05/14/13 Atorvastatin Calcium [Lipitor] 40 mg PO QHS 07/05/17 Gabapentin [Gralise] 600 mg PO BID 07/05/17 Losartan Potassium [Cozaar] 100 mg PO DAILY 07/05/17 Levothyroxine [Synthroid] 50 mcg PO DAILY 08/03/17 Primary Care Physician: Eric Monzon Chi, MD [Primary Care Provider] - Test Results: Test results from this visit will be discussed in further detail at your follow-up appointment, if applicable. Please Follow Up With: Chayo Monteiro MD
--- NOTE | 2017-11-23 14:51 | PCM.OPRPT ---
Problem List (1) Postlaminectomy syndrome, not elsewhere classified Status: Acute (2) Postlaminectomy syndrome, not elsewhere classified Status: Acute (3) Radiculopathy of lumbar region Status: Acute (4) Radiculopathy of lumbar region Status: Acute (5) Intervertebral disc disorder with radiculopathy of lumbar region Status: Acute (6) Intervertebral disc disorder with radiculopathy of lumbar region Status: Acute (7) Low back pain with right-sided sciatica Status: Acute Qualifiers: (8) Low back pain with right-sided sciatica Status: Acute Report of Operation Date of Procedure: 11/23/17 Pre-Operative Diagnosis: Lumbar postlaminectomy syndrome. Lumbar radiculopathy Post-Operative Diagnosis: Same Surgery/Procedure Performed:: Caudal epidural steroid injection under fluoroscopy guidance Description of Surgical Findings:: I Under sterile conditions. Patient placed in the prone position, pressure points were padded, patient was ready from the nursing and the anesthesia team. After identification of the side and the target area for the block under guided fluoroscopy, the entry site was marked with marking pen. I used Betadine for sterilization of the skin, sterile draping were applied. Using 25-gauge needle to infiltrate the skin with local anesthesia using preservative-free lidocaine 0.5% injected 2.5 mL at site of entry. Using guided fluoroscopy, accessed the the posterior caudal epidural space using 22-gauge spinal needles under midline caudal approach axis through the sacrococcygeal ligament, accessed the site was assisted with lateral fluoroscopy, followed by using [id number] technique using preservative-free normal saline, negative aspiration of CSF and blood. Injected contrast solution [2.5] mL under live fluoroscopy which showed good spread of the contrast to the posterior epidural space and to the targeted area of the injection through the caudal approach, noted contrast to spread up to the level of the L5-S1. Injected [5] mL of mixture of preservative-free lidocaine and Kenalog [80] mg for the procedure which showed appropriate spread in the epidural space. [place] was removed, pressure dressing were applied. Patient tolerated the procedure well and was taken to the recovery. Type of Anesthesia:: Local MAC Estimated Blood Loss (mL): None Description of Procedure: Caudal epidural steroid injection under fluoroscopy
[2017-11-23] MEDS: Triamcinolone Acetonide 40 MG/ML Vial (15:01)
[2017-11-23 15:11] VITALS: BP 128/96; BP 139/104; PULSE 70; RESP 16; TEMP 37.1; O2SAT 99
[2017-11-23 15:16] VITALS: BP 123/88; BP 139/104; PULSE 64; RESP 16; O2SAT 99
[2017-11-23 15:21] VITALS: BP 132/90; BP 139/104; PULSE 64; RESP 16; O2SAT 99
[2017-11-23 15:26] VITALS: BP 137/95; BP 139/104; PULSE 68; RESP 16; TEMP 37; O2SAT 98
[2017-11-23 15:56] VITALS: BP 139/104
== END 2017-11-23 15:56 | disposition home or self-care (01) ==
LOC: SDC 12:59 → AC 12:59
PROVIDERS: Family Provider Family Medicine Geriatric Medicine; PCP Family Medicine Geriatric Medicine; Visit Provider Anesthesiology
PROC: 3E0S3BZ Introduction of Anesthetic Agent into Epidural Space, Percutaneous Approach (ICD-10-PCS; CPT 62282; principal; 2017-11-23 13:50)
DX: M96.1 Postlaminectomy syndrome, not elsewhere classified (principal); M51.16 Intervertebral disc disorders with radiculopathy, lumbar region; D51.0 Vitamin B12 deficiency anemia due to intrinsic factor deficiency; E78.00 Pure hypercholesterolemia, unspecified; Z98.84 Bariatric surgery status; Z79.899 Other long term (current) drug therapy; F17.200 Nicotine dependence, unspecified, uncomplicated; G89.29 Other chronic pain; I10 Essential (primary) hypertension
CPT/HCPCS: 01992; 62323; 64483; 77003; J7120; J3490

== ENCOUNTER → 2018-04-30 11:54 | Outpatient (CLI) | payer MEDICAID, SELFPAY ==
[2018-04-30 12:43] LABS: Absolute Lymphocyte Count 2.89 X10^3/ul (0.83-4.51); Absolute Neutrophil Count 6.8 X10^3/uL (2.0-7.7); Basophil# 0.04 X10^3/uL; Basophil% 0.4 % (0-1); Eosinophil# 0.16 X10^3/uL; Eosinophils% 1.5 % (0-5); Hematocrit 41.8 % (40-54); Hemoglobin 14.1 g/dl (13.0-16.5); Lymphocyte # 2.89 X10^3/ul (4.0); Lymphocyte % 27.9 % (19-41); Mean Corp Hgb Conc 33.7 g/gl (32-36); Mean Corpuscular Hgb 32.1 pg (27.0-32.0); Mean Corpuscular Volume 95.2 fL (80-94); Monocyte# 0.46 X10^3/uL; Monocyte% 4.4 % (0-10); Neutrophil # 6.75 X10^3/uL (2.7-7.7); Neutrophil % 65.4 % (47-70); Platelet Count 245 K/mm3 (150-450); RBC Distribution Width CV 16.3 % (11.6-14.6); RBC Distribution Width SD 54.5 fl (35.1-43.9); Red Blood Count 4.39 M/mm3 (4.6-6.2); White Blood Count 10.3 K/mm3 (4.4-11.0)
[2018-04-30 12:44] LABS: POSITIVE COUNT NO; POSITIVE DIFFERENTIAL NO; POSITIVE MORPHOLOGY NO
[2018-04-30 13:05] LABS: ALB/GLOB Ratio 0.9 RATIO (0.9-2.4); AST(SGOT) 48 U/L (15-37); Alanine Aminotransfer ALT/SGPT 37 U/L (16-61); Albumin, Serum 3.9 g/dL (3.2-5.0); Alkaline Phosphatase 81 U/L (45-117); Anion Gap 7 (5-15); BUN 7 mg/dL (7-18); BUN/Creat Ratio 5.8 RATIO (10-20); Calcium,Total 9.1 mg/dL (8.5-10.1); Chloride 105 mmol/L (98-107); Creatinine, Serum 1.21 mg/dL (0.70-1.30); EST Glomerular Filtration Rate 69 mL/min (>60); Est Glom Filt Rate - Afr Amer 83 mL/min (>60); Globulin 4.3 g/dL (2.2-4.2); Glucose 83 mg/dL (74-106); Protein, Total 8.2 g/dL (6.4-8.2); Sodium Level 139 mmol/L (136-145)
--- OUTSIDE RECORDS SUMMARY | 2018-07-02 15:48 | XMS RPT_ITS ---
:1970 Author Organization OHIP Support Name Relationship Address Phone UE Unavailable Unavailable Unavailable UHER, JENNIFER Unavailable [address] + [place] [address] UE Unavailable Unavailable Unavailable UHER, JENNIFER Unavailable [address] + [place] [address] UE Unavailable Unavailable Unavailable UHER, JENNIFER Unavailable [address] + [place] [address] UE Unavailable Unavailable Unavailable UHER, JENNIFER Unavailable [address] + [place] [address] UE Unavailable Unavailable Unavailable UHER, JENNIFER Unavailable [address] + [place] [address] UE Unavailable Unavailable Unavailable UHER, JENNIFER Unavailable [address] + [place] [address] UE Unavailable Unavailable Unavailable UHER, JENNIFER Unavailable [address] + [place] [address] UE Unavailable Unavailable Unavailable UHER, JENNIFER Unavailable [address] + [place] [address] UE Unavailable Unavailable Unavailable UHER, JENNIFER Unavailable [address] + [place] [address] UE Unavailable Unavailable Unavailable UHER, JENNIFER Unavailable [address] + [place] [address] UE Unavailable Unavailable Unavailable UHER, JENNIFER Unavailable [address] + [place] [address] UE Unavailable Unavailable Unavailable UHER, JENNIFER Unavailable [address] + [place] [address] UE Unavailable Unavailable Unavailable UHER, JENNIFER Unavailable [address] + [place] [address] UE Unavailable Unavailable Unavailable UHER, JENNIFER Unavailable [address] + [place] [address] UE Unavailable Unavailable Unavailable UHER, JENNIFER Unavailable [address] + [place] [address] UE Unavailable Unavailable Unavailable UHER, JENNIFER Unavailable [address] + [place] [address] UE Unavailable Unavailable Unavailable UHER, JENNIFER Unavailable [address] + [place] [address] Care Team Providers Name Role Phone Nicolás, Eric Chi Attending Unavailable Nicolás, Eric Chi Primary Care Unavailable Cayetano, Sameh Attending Unavailable Cayetano, Sameh Referring Unavailable Nicolás, Eric Chi Primary Care Unavailable Nicolás, Eric Chi Primary Care Unavailable Melodie Spencer Attending Unavailable Neymar Perez Attending Unavailable Nicolás, Eric Chi Primary Care Unavailable Cayetano, Sameh Attending Unavailable Cayetano, Sameh Referring Unavailable Nicolás, Eric Chi Primary Care Unavailable Nicolás, Eric Chi Attending Unavailable Nicolás, Eric Chi Primary Care Unavailable Neymar Perez Attending Unavailable Nicolás, Eric Chi Referring Unavailable Nicolás, Eric Chi Primary Care Unavailable Neymar Perez Attending Unavailable Nicolás, Eric Chi Primary Care Unavailable Horacio Franks Consulting Unavailable Marlin Gatica Consulting Unavailable Nicolás, Eric Chi Primary Care Unavailable Cayetano, Sameh Attending Unavailable Cayetano, Sameh Referring Unavailable EnmaiLyndaman Attending Unavailable Basali Ayman Referring Unavailable Nicolás, Eric Chi Primary Care Unavailable Nicolás, Eric Chi Attending Unavailable Nicolás, Eric Chi Primary Care Unavailable Cayetano, Sameh Attending Unavailable Cayetano, Sameh Referring Unavailable Nicolás, Eric Chi Primary Care Unavailable Nicolás, Eric Chi Attending Unavailable Nicolás, Eric Chi Primary Care Unavailable Nicolás, Eric Chi Attending Unavailable Nicolás, Eric Chi Primary Care Unavailable Dossie, Carmen D.C. Attending Unavailable Nicolás, Eric Chi Referring Unavailable Nicolás, Eric Chi Primary Care Unavailable DosCarmen nicole D.C. Attending Unavailable Nicolás, Eric Chi Referring Unavailable Cayetano, Sameh Attending Unavailable Cayetano, Sameh Referring Unavailable Nicolás, Eric Chi Primary Care Unavailable PROBLEMS PROBLEMS DATE TYPE CONDITION / CODE ATTENDING STATUS SOURCE 04/30/2018 Unknown I10 - Essential Nicolás, Eric Chi Active [facility] (primary) Community hypertension / Hospital I10(ICD-10) Repository 11/09/2017 Unknown M51.16 - Dossie, Carmen Active [facility] Intervertebral disc [facility] Community disorders with Hospital radiculopathy, lumbar Repository region / M51.16(ICD-10) 11/09/2017 Unknown M99.02 - Segmental Dossie, Carmen Active [facility] and somatic [facility].C[facility] Community dysfunction of Hospital thoracic region / Repository M99.02(ICD-10) 11/09/2017 Unknown M99.05 - Segmental Dossie, Carmen Active [facility] and [facility] Community dysfunction of pelvic Hospital region / Repository M99.05(ICD-10) 11/09/2017 Unknown M99.03 - Segmental Dossie, Carmen Active [facility] and [facility] Community dysfunction of lumbar Hospital region / Repository M99.03(ICD-10) 08/13/2017 Unknown M96.1 - Cayetano, Sameh Active [facility] Postlaminectomy Community syndrome, not Hospital elsewhere classified Repository / M96.1(ICD-10) 07/23/2017 Unknown K61.1 - Rectal Calabretta, Active [facility] abscess / [facility] Community K61.1(ICD-10) Hospital Repository 07/17/2017 Unknown M54.16 - Cayetano, Sameh Active [facility] Radiculopathy, lumbar Community region / Hospital M54.16(ICD-10) Repository PROCEDURES PROCEDURES No Procedure Records FoundRESULTS RESULTS CBC W/DIFF, AUTOMATED Collected: 04/30/2018 Status: F Source: [facility] 12[facility] PM [facility] RE[facility] TYPE CODE TESTS RESULT OUT OF RANGE REFERENCE UNITS LAB L100.1000 4.4-11.0 K/mm3 Normal WBC 10.3 LAB L100.1200 4.6-6.2 M/mm3 Low RBC 4.39 LAB L100.1300 13.0-16.5 g/dl Normal HGB 14.1 LAB L100.1400 40-54 % Normal HCT 41.8 LAB L100.1500 80-94 fL High MCV 95.2 LAB L100.1600 27.0-32.0 pg High MCH 32.1 LAB L100.1700 32-36 g/gl Normal MCHC 33.7 LAB L100.1810 11.6-14.6 % High RDW CV 16.3 LAB L100.1820 35.1-43.9 fl High RDW SD 54.5 LAB L100.1900 150-450 K/mm3 Normal PLT 245 LAB L100.2000 6.2-12.0 fl Normal MPV 11.0 LAB L100.2100 47-70 % Normal NEUT% 65.4 LAB L100.2200 19-41 % Normal LY% 27.9 LAB L100.2300 0-10 % Normal MONO% 4.4 LAB L100.2400 0-5 % Normal EO% 1.5 LAB L100.2500 0-1 % Normal BASO% 0.4 LAB L100.2550 0.0-0.9 % Normal IM GRAN % 0.400 Result Comment: IG% - Immature Granulocytes (promyelocytes, myelocytes and metamyelocytes) > 1% indicates that a LEFT SHIFT is Present. LAB L100.2620 2.0-7.7 X10 3/uL Normal Absolute Neut 6.8 LAB L100.2720 0.83-4.51 X10 3/ul Normal Absolute Lymph 2.89 Performed By: #### L100.0100 #### [facility] [address] [place], [address] COMPREHENSIVE METABOLIC Collected: 04/30/2018 Status: F Source: [facility] 12:00 PM [facility] REPOSITORY TYPE CODE TESTS RESULT OUT OF RANGE REFERENCE UNITS LAB L501.0100 74-106 mg/dL Normal GLU 83 Result Comment: Please note revised GLUCOSE reference range effective 2017. LAB L501.1000 7-18 mg/dL Normal BUN 7 LAB L501.1100 0.70-1.30 mg/dL Normal CREAT,SERUM 1.21 Result Comment: The validity of the calculated GFR AND GFRAA in patients over 70 years has not been determined. Clinical correlation is essential. LAB L501.1110 >60 mL/min Normal EST GFR 69 Result Comment: Non- GFR Calc LAB L501.1115 >60 mL/min Normal EST GFR - AA 83 Result Comment: GFR Calc LAB L501.1300 10-20 RATIO Low BUN/CRE 5.8 LAB L501.1500 6.4-8.2 g/dL Normal T PROT 8.2 LAB L501.1800 3.2-5.0 g/dL Normal ALB 3.9 LAB L501.1950 2.2-4.2 g/dL High GLOB 4.3 LAB L501.2000 0.9-2.4 RATIO Normal A/G 0.9 LAB L501.2200 8.5-10.1 mg/dL Normal CA 9.1 LAB L501.4100 15-37 U/L High AST 48 LAB L501.4305 45-117 U/L Normal ALK P 81 LAB L501.4405 16-61 U/L Normal ALT 37 LAB L501.4600 0.20-1.00 mg/dL Normal T BILI 0.30 LAB L501.5300 136-145 mmol/L Normal NA 139 LAB L501.5600 3.5-5.1 mmol/L Normal K 4.0 LAB L501.5900 98-107 mmol/L Normal CL 105 LAB L501.6100 21.0-32.0 mmol/L Normal CO2 27.0 LAB L501.6200 5-15 Normal GAP 7 Performed By: #### L500.4050, L501.9520 #### [facility] [address] [facility] [place], [place], [address] THYROID STIM HORMONE Collected: 04/30/2018 Status: F Source: [facility] ([facility]) 12:00 PM [facility] REPOSITORY TYPE CODE TESTS RESULT OUT OF RANGE REFERENCE UNITS LAB L501.9520 0.358-3.74 uIU/mL High TSH 93.20 Performed By: #### L500.4050, L501.9520 #### [facility] [address] [facility] [place], [place], [id number] OPERATIVE REPORT Observed: 11/23/2017 Status: F Source: [facility] 2:54 PM [facility] REPOSITORY [facility] Medical Records Department [address] [place] [address] Operative Report 11/23/17 1451 MR#: [id number] Acct: [id number] Name: SEBASTIAN GIPSON Rep #: [id number] : 1970 47 From: Chayo Monteiro MD PCP: Nicolás MORELAND,Eric Lebron Status: REG SDC Y Location: [place] [address] Problem List (1) Postlaminectomy syndrome, not elsewhere classified Status: Acute (2) Postlaminectomy syndrome, not elsewhere classified Status: Acute (3) Radiculopathy of lumbar region Status: Acute (4) Radiculopathy of lumbar region Status: Acute (5) Intervertebral disc disorder with radiculopathy of lumbar region Status: Acute (6) Intervertebral disc disorder with radiculopathy of lumbar region Status: Acute (7) Low back pain with right-sided sciatica Status: Acute Qualifiers: (8) Low back pain with right-sided sciatica Status: Acute Report of Operation Date of Procedure: 11/23/17 Pre-Operative Diagnosis: Lumbar postlaminectomy syndrome. Lumbar radiculopathy Post-Operative Diagnosis: Same Surgery/Procedure Performed:: Caudal epidural steroid injection under fluoroscopy guidance Description of Surgical Findings:: I Under sterile conditions. Patient placed in the prone position, pressure points were padded, patient was ready from the nursing and the anesthesia team. After identification of the side and the target area for the block under guided fluoroscopy, the entry site was marked with marking pen. I used Betadine for sterilization of the skin, sterile draping were applied. Using 25-gauge needle to infiltrate the skin with local anesthesia using preservative-free lidocaine 0.5% injected 2.5 mL at site of entry. Using guided fluoroscopy, accessed the the posterior caudal epidural space using 22-gauge spinal needles under midline caudal approach axis through the sacrococcygeal ligament, accessed the site was assisted with lateral fluoroscopy, followed by using [id number] technique using preservative-free normal saline, negative aspiration of CSF and blood. Injected contrast solution [2.5] mL under live fluoroscopy which showed good spread of the contrast to the posterior epidural space and to the targeted area of the injection through the caudal approach, noted contrast to spread up to the level of the L5-S1. Injected [5] mL of mixture of preservative-free lidocaine and Kenalog [80] mg for the procedure which showed appropriate spread in the epidural space. Whitney was removed, pressure dressing were applied. Patient tolerated the procedure well and was taken to the recovery. Type of Anesthesia:: Local MAC Estimated Blood Loss (mL): None Description of Procedure: Caudal epidural steroid injection under fluoroscopy 11/23/17 1454 <Electronically signed by Chayo Monteiro MD> Date Chayo Monteiro MD CC: Chayo Monteiro M.D.; Eric Monzon MD Signed DISCHARGE INSTRUCTION Observed: 11/23/2017 Status: F Source: [facility] 2:51 PM [facility] REPOSITORY [facility] Medical Records Department [address] [place] [address] Instructions for Home/Discharge Instructions 11/23/17 1449 MR#: [id number] Acct: [id number] Name: SEBATSIAN GIPSON Rep #: [id number] : 1970 47 From: Chayo Monteiro MD PCP: Eric Monzon MD, Chi Status: REG [facility] [place] - Discharge Diagnoses Current Active Problems: Lower back and radiating leg pain Reason(s) for Visit for Discharge Instructions: Procedure with caudal epidural steroid injection under fluoroscopy guidance You will use the following diet at home:: No restrictions Your food should be the consistency of: Regular Discharge Activity: Return to Normal Activity Return to work on:: 11/26/17 May shower in (days): 1 May resume sexual activity in: No Restrictions Weight Bearing Status: Weight bearing as tolerated Call your doctor if your incision/area has: Continuous Slow Oozing, Sudden Increased Bleeding, Increased Pain/ Swelling, Increased Redness, Swelling at the incision site Call your doctor if you observe: Uncontrolled pain Suture Line Care: Avoid Pulling/Pushing, Avoid Pinching/Bending Remove Dressing in (days):: 1 Cleanse incision/area with: Soap AND Water Allergies/Adverse Reactions: Allergies diphenhydramine HCl [From Benadryl] Allergy (Verified 11/23/17 13:14) Rash ibuprofen Allergy (Verified 11/23/17 13:14) Anaphylaxis Medications to take at Discharge traMADol [Ultram] 50 mg PO Q6H PRN PRN #10 tab 05/14/13 Atorvastatin Calcium [Lipitor] 40 mg PO QHS 07/05/17 Gabapentin [Gralise] 600 mg PO BID 07/05/17 Losartan Potassium [Cozaar] 100 mg PO DAILY 07/05/17 Levothyroxine [Synthroid] 50 mcg PO DAILY 08/03/17 Primary Care Physician: Eric Monzon Chi, MD [Primary Care Provider] - Test Results: Test results from this visit will be discussed in further detail at your follow-up appointment, if applicable. Please Follow Up With: Chayo Monteiro MD 11/23/17 6166 <Electronically signed by Chayo Monteiro MD> Date Chayo Monteiro MD CC: Eric Monzon MD FLUOR GUIDANCE FOR Observed: 11/23/2017 Status: F Source: [facility] 12:08 AM [facility] REPOSITORY [facility] Imaging Services [address] [place] [address] Fluor Guidance for Spine Inj MR#: [id number] Acct: [id number] Name: SEBASTIAN GIPSON Rep #: [id number] : 1970 M 47 From: Grzegorz Mcnally MD PCP: Eric Monzon MD, Chi Status: [facility] Study: Fluor Guidance for Spine Inj Date of Exam: 11/23/17 Exam# [id number] Ordering Dr: Chayo Monteiro MD PROCEDURE: Caudal block. DATE OF EXAMINATION: November 23, 2017. INDICATION: Male, 47 years old. Low back pain. FLUOROSCOPY TIME (if supplied): (0:10) minutes/seconds Intraoperative fluoroscopic services provided for caudal block. The spinal needle is seen along the posterior midportion of the sacrum. RAD/Fluor Guidance for Spine Inj IMPRESSION: Intraoperative fluoroscopic services provided for caudal block. Electronically Signed: Grzegorz Mcnally MD at 8:24 EDT Tel [phone], Service support , CC: Chayo Monteiro M.D.; Eric Monzon MD [employer] Sales Specialist: Signed CHIROPRACTIC REPORT Observed: 11/08/2017 Status: F Source: [facility] 4:19 PM [facility] [address] [place] [address] OFFICE VISIT Date of Service: 11/08/17 MR#: [id number] Acct: [id number] Name: SEBASTIAN GIPSON Rep #: [id number] : 1970 Provider: Carmen Gastelum D.C. Age/Sex: 47/M Location: [facility] Status: Signed Intake Vital Signs11/08/17 Height 5 ft 10 in 11/08/17 Weight: 45 lb 11/08/17 Body Mass Index (BMI) 6.4 Intake Visit Reasons: low back pain Chief Complaint: R sided low back pain Accompanied by: Is patient in pain?: Yes Allergies diphenhydramine HCl [From Benadryl] Allergy (Verified 08/30/17 14:57) Rash ibuprofen Allergy (Verified 08/30/17 14:57) Anaphylaxis Medications traMADol [Ultram] 50 mg PO Q6H PRN PRN #10 tab 05/14/13 [Rx Confirmed 08/30/17] Atorvastatin Calcium [Lipitor] 40 mg PO QHS 07/05/17 [History Confirmed 08/30/17] Gabapentin [Gralise] 600 mg PO BID 07/05/17 [History Confirmed 08/30/17] Losartan Potassium [Cozaar] 100 mg PO DAILY 07/05/17 [History Confirmed 08/30/17] Levothyroxine [Synthroid] 50 mcg PO DAILY 08/03/17 [History Confirmed 08/30/17] PFSH Medical History Perirectal abscess (Acute) hypercholesterolemia (Acute) HTN (hypertension) (Chronic) Surgical History H/O bariatric surgery (Acute) H/O laparoscopy (Acute) History of appendectomy (Acute) History of back surgery (Acute) Social History Smoking Status: Current every day smoker HPI low back pain : Chief Complaint: Low back pain Visit Number: 1 Referral source: Details: SEBASTIAN GIPSON is a 47 year old M who presents with low back pain, specifically R sided. He states that almost one year ago he had back surgery to repair a disc, since the surgery his pain has increased. Sebastian is currently getting injections which have greatly decreased his low back pain, although he is experiencing severe and sharp pain radiating into the R leg. Walking, bending and twisting all cause increased pain that is sharp shooting, and will radiate all the way down to the foot. There is presence of numbness that at times will cause the leg to go out At its worst Sebastian rates his pain a 10/10 although currently his pain is a 5/10. Laying flat does help decrease the pain. Location: low back - R sided Duration: constant Aggravating or associated factors: walking, bending and lifting Relieving factors: laying flat Pain Quality: aching, dull, cramping, sharp, radiating Exam Musc General: Yes joint tenderness (T11, T12, L3-L5, R SI) and decreased ROM; no normal posture (left tilt) or normal gait (guarded) Thoracic/Lumbar Spine: thor and lumb spine abnorm to inspection (flexed antalgia when acute. Left tilt normal posture), pain with thoraco-lumbar ROM with forward flexion, with lateral flexion to the right, with lateral flexion to the left, with rotation to the right, with rotation to the left and other (extension), thoraco-lumbar ROM limited with forward flexion, with lateral flexion to the right, with lateral flexion to the left, with rotation to the left and with rotation to the right, Lasegue's sign positive bilaterally, straight leg raise negative bilaterally, paraspinal tenderness (T11-L5) on the right, thoraco-lumbar spasm on the right in the lower thoracic, in the upper lumbar, in the lower lumbar and in the mid lumbar Sacroiliac joints: on the right Neuro General: alert, awake, gait abnormal, normal light touch, pain and propioception, focal motor deficits present, deep tendon reflexes 2+ bilaterally Gait: other (unable to walk on heels/toes due to pain in right foot) DTR's: Rt Patellar: 2+, Lt Patellar: 2+, Rt Ankle: 2+, Lt Ankle: 2+ Ortho Test CERVICAL Valsalvas: Positive THORACIC LUMBAR Kemps: Positive, Rig (R>L) Valsalvas: Positive SLR: Positive, Rig Braggards: Positive, Rig Iliac Compression: Positive, Rig Assessment AND Plan Problems 1. Intervertebral disc disorder with radiculopathy of lumbar region M51.16 2. Segmental and somatic dysfunction of thoracic region M99.02 3. Segmental and somatic dysfunction of pelvic region M99.05 4. Segmental and somatic dysfunction of lumbar region M99.03 Plan Recommend acute treatment plan. Plan Detail Goals Decrease pain and spasm Decrease radiculopathy Barriers Previous lumbar surgery Follow Up 2x/wk/3wks Coding Level of Care Code Off vis,new,level 3 Diagnoses Intervertebral disc disorder with radiculopathy of lumbar region M51.16 Segmental and somatic dysfunction of thoracic region M99.02 Segmental and somatic dysfunction of pelvic region M99.05 Segmental and somatic dysfunction of lumbar region M99.03 11/08/17 1619 <Electronically signed by Carmen Gastelum D.C.> Date Carmen Gastelum D.C. Cosigner Signature: Date (if applicable) CC: THYROID STIM HORMONE Collected: 09/06/2017 Status: F Source: [facility] ([facility]) 3:43 PM [facility] REPOSITORY TYPE CODE TESTS RESULT OUT OF RANGE REFERENCE UNITS LAB L501.9520 0.358-3.74 uIU/mL High TSH 17.00 Performed By: #### L501.9520 #### [facility] [address] [place], [address] OPERATIVE REPORT Observed: 08/31/2017 Status: F Source: [place] 2:13 PM [facility] REPOSITORY [facility] Medical Records Department [address] [place] [address] [place] [address] Operative Report 08/31/17 1410 MR#: [id number] Acct: [id number] Name: SEBASTIAN GIPSON Rep #: [id number] : 1970 47 From: Chayo Monteiro MD PCP: Nicolás MORELAND,Eric Lebron Status: REG SDC Y Location: [place] [address] Problem List (1) Sacroiliitis, not elsewhere classified Status: Acute (2) Sacroiliitis, not elsewhere classified Status: Acute (3) Inflammation of right sacroiliac joint Status: Acute (4) Inflammation of right sacroiliac joint Status: Acute (5) Acute myofascial pain Status: Acute (6) Acute buttock pain Status: Acute (7) Myalgia Status: Acute (8) Muscle spasm Status: Acute (9) Muscle spasm Status: Acute Operative Report Date of Procedure: 08/31/17 Right sacroiliac joint injection under fluoroscopy Right piriformis muscle injection under fluoroscopy Under sterile conditions. Patient placed in the prone position, pressure points were padded, patient was ready from the nursing and the anesthesia team. After identification of the side and the target area for the block under guided fluoroscopy, the entry site was marked with marking pen. I used Betadine for sterilization of the skin, sterile draping were applied. Using 25-gauge needle to infiltrate the skin with local anesthesia using preservative-free lidocaine 0.5% injected 2.5 mL at each site of entry, the right sacroiliac joint lower third, at the right piriformis muscle using guided fluoroscopy in oblique angle. Using oblique fluoroscopy, accessed the right Sacroiliac joint at the lower third as well as the right pyriformis muscle using 22-gauge spinal needle. After confirmation of appropriate needle placement to the targeted area with AP and lateral fluoroscopy, injected 7 mL mixture of preservative-free Marcaine 0.5% and Kenalog [60] mg at the sacroiliac joint, 20 mg Kenalog and Marcaine 0.5% 5 mL injected at the right pyriformis muscle. Whitney was removed, pressure dressing were applied. Patient tolerated the procedure well and was taken to the recovery. 08/31/17 1413 <Electronically signed by Chayo Monteiro MD> Date Chayo Monteiro MD CC: Chayo Monteiro M.D.; Eric Monzon MD Signed DISCHARGE INSTRUCTION Observed: 08/31/2017 Status: F Source: [place] 2:10 PM [facility] REPOSITORY [facility] Medical Records Department [address] [place] [address] Instructions for Home/Discharge Instructions 08/31/17 1356 MR#: [id number] Acct: [id number] Name: SEBASTIAN GIPSON Rep #: [id number] : 1970 47 From: Chayo Monteiro MD PCP: Eric Monzon MD, Chi Status: REG SDC - Discharge Diagnoses Current Active Problems: Sacroiliac joint dysfunction and sacroiliac joint pain and pyriformis syndrome Reason(s) for Visit for Discharge Instructions: Lower right back and right gluteal pain You will use the following diet at home:: No restrictions Discharge Activity: Return to Normal Activity May shower in (days): 1 May resume sexual activity in: No Restrictions Weight Bearing Status: Weight bearing as tolerated Call your doctor if your incision/area has: Continuous Slow Oozing, Increased Pain/ Swelling Call your doctor if you observe: Coldness, Increased Pain Suture Line Care: Avoid Pulling/Pushing, Avoid Pinching/Bending Cleanse incision/area with: Soap AND Water Allergies/Adverse Reactions: Allergies diphenhydramine HCl [From Benadryl] Allergy (Verified 08/30/17 14:57) Rash ibuprofen Allergy (Verified 08/30/17 14:57) Anaphylaxis Medications to take at Discharge traMADol [Ultram] 50 mg PO Q6H PRN PRN #10 tab 05/14/13 Atorvastatin Calcium [Lipitor] 40 mg PO QHS 07/05/17 Gabapentin [Gralise] 600 mg PO BID 07/05/17 Losartan Potassium [Cozaar] 100 mg PO DAILY 07/05/17 Levothyroxine [Synthroid] 50 mcg PO DAILY 08/03/17 Primary Care Physician: Eric Monzon Chi, MD [Primary Care Provider] - Please Follow Up With: Chayo Monteiro MD 08/31/17 1410 <Electronically signed by Chayo Monteiro MD> Date Chayo Monteiro MD CC: Eric Monzon MD S-I JTS 3 OR MORE Observed: 08/30/2017 Status: F Source: [place] VIEWS 11:32 PM [facility] REPOSITORY [facility] Imaging Services [address] [place] [address] S-I Jts 3 or More Views MR#: [id number] Acct: [id number] Name: SEBASTIAN GIPSON Rep #: [id number] : 1970 M 47 From: Grzegorz Mcnally MD PCP: Eric Monzon MD, Chi Status: REG [facility] [place]: S-I Jts 3 or More Views Date of Exam: 08/31/17 Exam# [id number] Ordering Dr: Chayo Monteiro MD STUDY: X-RAY - SACROILIAC JOINTS REASON FOR EXAM: Male, 47 years old. Right SI joint injection. Right piriform muscle injection. TECHNIQUE: 2 coned-down intraoperative view(s) of the sacroiliac joints were obtained. COMPARISON: None. FINDINGS: Intraoperative imaging provided for injection of the right sacroiliac joint and right piriform muscle. RAD/S-I Jts 3 or More Views IMPRESSION: Fluoroscopic services provided as described. Electronically Signed: Grzegorz Mcnally MD at 14:42 EDT Tel [phone], Service support , CC: Chayo Monteiro M.D.; Eric Monzon MD [employer] Sales Specialist: Signed CBC W/DIFF, AUTOMATED Collected: 08/22/2017 Status: F Source: [place] 10:29 AM [facility] [place] REPOSITORY TYPE CODE TESTS RESULT OUT OF RANGE REFERENCE UNITS LAB L100.1000 4.4-11.0 K/mm3 Normal WBC 8.0 LAB L100.1200 4.6-6.2 M/mm3 Low RBC 4.24 LAB L100.1300 13.0-16.5 g/dl Normal HGB 14.1 LAB L100.1400 40-54 % Normal HCT 42.4 LAB L100.1500 80-94 fL High MCV 100.0 LAB L100.1600 27.0-32.0 pg High MCH 33.3 LAB L100.1700 32-36 g/gl Normal MCHC 33.3 LAB L100.1810 11.6-14.6 % High RDW CV 15.9 LAB L100.1820 35.1-43.9 fl High RDW SD 57.7 LAB L100.1900 150-450 K/mm3 Normal PLT 218 LAB L100.2000 6.2-12.0 fl Normal MPV 10.9 LAB L100.2100 47-70 % Normal NEUT% 61.4 LAB L100.2200 19-41 % Normal LY% 29.0 LAB L100.2300 0-10 % Normal MONO% 7.5 LAB L100.2400 0-5 % Normal EO% 1.1 LAB L100.2500 0-1 % Normal BASO% 0.4 LAB L100.2550 0.0-0.9 % Normal IM GRAN % 0.600 Result Comment: IG% - Immature Granulocytes (promyelocytes, myelocytes and metamyelocytes) > 1% indicates that a LEFT SHIFT is Present. LAB L100.2620 2.0-7.7 X10 3/uL Normal Absolute Neut 4.9 LAB L100.2720 0.83-4.51 X10 3/ul Normal Absolute Lymph 2.31 Performed By: #### L100.0100 #### [facility] [address] [place], [place], [id number] COMPREHENSIVE METABOLIC Collected: 08/22/2017 Status: F Source: [facility] 10:29 AM [facility] [place] REPOSITORY TYPE CODE TESTS RESULT OUT OF RANGE REFERENCE UNITS LAB L501.0100 74-106 mg/dL Normal GLU 76 Result Comment: Please note revised GLUCOSE reference range effective 2017. LAB L501.1000 7-18 mg/dL Normal BUN 10 LAB L501.1100 0.70-1.30 mg/dL Normal CREAT,SERUM 1.03 Result Comment: The validity of the calculated GFR AND GFRAA in patients over 70 years has not been determined. Clinical correlation is essential. LAB L501.1110 >60 mL/min Normal EST GFR 83 Result Comment: Non- GFR Calc LAB L501.1115 >60 mL/min Normal EST GFR - AA 100 Result Comment: GFR Calc LAB L501.1300 10-20 RATIO Low BUN/CRE 9.7 LAB L501.1500 6.4-8.2 g/dL High T PROT 8.7 LAB L501.1800 3.2-5.0 g/dL Normal ALB 3.9 LAB L501.1950 2.2-4.2 g/dL High GLOB 4.8 LAB L501.2000 0.9-2.4 RATIO Low A/G 0.8 LAB L501.2200 8.5-10.1 mg/dL Normal CA 8.6 LAB L501.4100 15-37 U/L Normal AST 18 LAB L501.4305 45-117 U/L Normal ALK P 82 LAB L501.4405 16-61 U/L Normal ALT 28 LAB L501.4600 0.20-1.00 mg/dL Normal T BILI 0.20 LAB L501.5300 136-145 mmol/L Normal NA 139 LAB L501.5600 3.5-5.1 mmol/L Normal K 4.4 LAB L501.5900 98-107 mmol/L Normal CL 106 LAB L501.6100 21.0-32.0 mmol/L Normal CO2 27.0 LAB L501.6200 5-15 Normal GAP 6 Performed By: #### L500.4050, L501.9520 #### [facility] [address] [place], [address] THYROID STIM HORMONE Collected: 08/22/2017 Status: F Source: [place] (T[facility]) 10:29 AM [facility] [place] REPOSITORY TYPE CODE TESTS RESULT OUT OF RANGE REFERENCE UNITS LAB L501.9520 0.358-3.74 uIU/mL High TSH 72.00 Performed By: #### L500.4050, L501.9520 #### [facility] [address] [place], [address] OPERATIVE REPORT Observed: 08/03/2017 Status: F Source: [place] 3:05 PM [facility] [place] REPOSITORY [facility] Medical Records Department [address] [place] [address] Operative Report 08/03/17 1501 MR#: [id number] Acct: [id number] Name: SEBASTIAN GIPSON Rep #: [id number] : 1970 47 From: Chayo Monteiro MD PCP: Nicolás MORELAND,Eric Lebron Status: REG SDC Y Location: [place] [address] Problem List (1) Postlaminectomy syndrome, not elsewhere classified Status: Acute (2) Postlaminectomy syndrome, not elsewhere classified Status: Acute (3) Radiculopathy of lumbar region Status: Acute (4) Radiculopathy of lumbar region Status: Acute (5) Intervertebral disc disorder with radiculopathy of lumbar region Status: Acute (6) Intervertebral disc disorder with radiculopathy of lumbar region Status: Acute (7) Low back pain with right-sided sciatica Status: Acute Qualifiers: Chronicity: chronic Back pain laterality: right Qualified Code(s): M54.41 - Lumbago with sciatica, right side; G89.29 - Other chronic pain (8) Low back pain with right-sided sciatica Status: Acute Report of Operation Date of Procedure: 08/03/17 Pre-Operative Diagnosis: Lumbar postlaminectomy syndrome, lumbar radiculopathy due to lumbar disc disease Post-Operative Diagnosis: Same Surgery/Procedure Performed:: Caudal epidural steroid injection under fluoroscopy guidance Description of Surgical Findings:: Under sterile conditions. Patient placed in the prone position, pressure points were padded, patient was ready from the nursing and the anesthesia team. After identification of the side and the target area for the block under guided fluoroscopy, the entry site was marked with marking pen. I used Betadine for sterilization of the skin, sterile draping were applied. Using 25-gauge needle to infiltrate the skin with local anesthesia using preservative-free lidocaine 0.5% injected 5 mL at site of entry. Using guided fluoroscopy, accessed the the posterior caudal epidural space using 22-gauge spinal needles under midline lumbar caudal approach approach, accessed the site was assisted with AP and lateral fluoroscopy, negative aspiration of CSF and blood. Injected contrast solution [2.5] mL under live fluoroscopy which showed good spread of the contrast to the posterior caudal epidural space and to the targeted area of the injection caudal epidural space up to the lower lumbar space. Injected [6] mL of mixture of preservative-free lidocaine and Kenalog [80] mg for the procedure which showed appropriate spread in the epidural space. Whitney was removed, pressure dressing were applied. Patient tolerated the procedure well and was taken to the recovery. Type of Anesthesia:: Local - Complications None 08/03/17 1505 <Electronically signed by Chayo Monteiro MD> Date Chayo Monteiro MD CC: Chayo Monteiro M.D.; Eric Monzon MD Signed DISCHARGE INSTRUCTION Observed: 08/03/2017 Status: F Source: [place] 3:00 PM [facility] [place] REPOSITORY [facility] Medical Records Department [address] [place] [address] Instructions for Home/Discharge Instructions 08/03/17 1459 MR#: [id number] Acct: [id number] Name: SEBASTIAN GIPSON Rep #: [id number] : 1970 47 From: Chayo Monteiro MD PCP: Eric Monzon MD, Chi Status: REG MAC - Discharge Diagnoses Current Active Problems: Lower back pain and radicular leg pain Lumbar postlaminectomy syndrome with lumbar radiculopathy You will use the following diet at home:: No restrictions Your food should be the consistency of: Regular Discharge Activity: Return to Normal Activity Return to work on:: 08/06/17 May shower in (days): 1 May resume sexual activity in: No Restrictions Weight Bearing Status: Partial weight bearing Call your doctor if your incision/area has: Continuous Slow Oozing, Foul Smelling Discharge - Have a good day vector Call your doctor if you observe: Uncontrolled pain - call the office if you need anything okay I am up there until 6:00 Allergies/Adverse Reactions: Allergies diphenhydramine HCl [From Benadryl] Allergy (Verified 07/05/17 11:40) Rash ibuprofen Allergy (Verified 07/05/17 11:40) Anaphylaxis Medications to take at Discharge traMADol [Ultram] 50 mg PO Q6H PRN PRN #10 tab 05/14/13 Atorvastatin Calcium [Lipitor] 40 mg PO QHS 07/05/17 Gabapentin [Gralise] 600 mg PO BID 07/05/17 Losartan Potassium [Cozaar] 100 mg PO DAILY 07/05/17 amoxicillin 875 mg-potassium clavulanate 125 mg tablet 1 tab PO BID #20 tab 07/12/17 Levothyroxine [Synthroid] 50 mcg PO DAILY 08/03/17 Primary Care Physician: Eric Monzon Chi, MD [Primary Care Provider] - 08/03/17 1500 <Electronically signed by Chayo Monteiro MD> Date Chayo Monteiro MD CC: Eric Monzon MD FLUOR GUIDANCE FOR Observed: 08/03/2017 Status: F Source: [place] SPINE INJ 2:16 PM [facility] [place] REPOSITORY [facility] Imaging Services [address] [place] [address] Fluor Guidance for Spine Inj MR#: [id number] Acct: [id number] Name: SEBASTIAN GIPSON Rep #: [id number] : 1970 M 47 From: Fermín Rawls MD PCP: Eric Monzon MD, Chi Status: [facility] Study: Fluor Guidance for Spine Inj Date of Exam: 08/03/17 Exam# [id number] Ordering Dr: Juan Carlos Bai MD PROCEDURE: Caudal block. DATE OF EXAMINATION: August 03, 2017. INDICATION: Male, 47 years old. Caudal block. Comment: Fluoroscopy services provided for clinical procedure. Please refer to operating physician's procedure note for additional detail. PHYSICIAN: Bhumika FLUOROSCOPY TIME (if supplied): (0:10) minutes/seconds PROCEDURE/TECHNIQUE: 3, intraprocedural, fluoroscopic spot images of the sacrum. A single spinal needle is identified in the midline with tip in the region the sacral hiatus. A small amount of contrast has been injected to evaluate appropriate needle tip placement. There is no significant incidental finding. RAD/Fluor Guidance for Spine Inj IMPRESSION: There is no significant incidental finding. Comment: Fluoroscopy services provided for clinical procedure. Please refer to operating physician's procedure note for additional detail. Electronically Signed: Fermín Rawls MD at 15:31 EDT , Service support , CC: Juan Carlos Bai MD; Eric Monzon MD [employer] Sales Specialist: Signed ABDOMEN/PELVIS WITH Observed: 07/23/2017 Status: F Source: [place] CONTRAST 9:36 AM [facility] [place] REPOSITORY [facility] Imaging Services [address] [place] [address] Abdomen/Pelvis WITH Contrast MR#: [id number] Acct: [id number] Name: SEBASTIAN GIPSON Rep #: [id number] : 1970 M 47 From: Grzegorz Mcnally MD PCP: Eric Monzon MD, Chi Status: REG CLI Study: Abdomen/Pelvis WITH Contrast Date of Exam: 07/23/17 Exam# [id number] Ordering Dr: Neymar Perez MD STUDY: CT ABDOMEN AND PELVIS WITH CONTRAST REASON FOR EXAM: Male, 47 years old. Perirectal abscess. RADIATION DOSAGE (If Supplied By Facility): CTDIvol = ( 16.91 ) mGy, DLP = ( 1350.07 ) mGycm TECHNIQUE: Transaxial images were obtained from the dome of the diaphragm to the symphysis pubis with oral contrast. 100 ml of Isovue 300 contrast was administered. Sagittal and coronal images were reconstructed. Individualized dose optimization techniques were used for this CT. COMPARISON: Comparison is made with prior study dated July 05, 2017. FINDINGS: The visualized lung bases are unremarkable. The visualized portions of the heart are within normal limits. There is decreased attenuation of the liver consistent with steatosis. Normal gallbladder and extrahepatic biliary system. Normal spleen. Normal pancreas. Normal bilateral adrenal glands. Normal right kidney. Normal left kidney. There is a small hiatal hernia. Normal small intestine. A moderate amount of fecal material is seen in the sigmoid colon. Increased markings are seen in the pelvic fat. There is a 1.4 cm x 1.8 cm rounded hypodensity along the posterior aspect of the rectum. This may correlate to the clinically diagnosed perirectal abscess. This has decreased in size as compared to prior study. The appendix is visualized and appears normal. Normal abdominal aorta. Normal inferior vena cava. Normal retroperitoneum. Normal urinary bladder. Small inguinal lymph nodes are seen. These are unchanged. Normal abdominal wall. Stable disc space narrowing and degeneration at the L4-L5 and L5-S1 levels. Stable mild anterior listhesis of L5 on S1 with spondylolysis of the pars interarticularis of the L5 vertebrae. CT/Abdomen/Pelvis WITH Contrast IMPRESSION: Persistent posterior rectal wall thickening with focal area of decreased attenuation. There has been improvement as compared to prior study. Electronically Signed: Grzegorz Mcnally MD at 12:30 EDT Tel [phone], Service support , CC: Neymar Perez MD; Eric Monzon MD [employer] Sales Specialist: Signed SPINE LUMBAR W/WO Observed: 07/17/2017 Status: F Source: [place] CONTRAST 10:16 AM [facility] [place] REPOSITORY [facility] Imaging Services [address] [place] [address] Spine Lumbar W/WO Contrast MR#: [id number] Acct: [id number] Name: SEBASTIAN GIPSON Rep #: [id number] : 1970 M 47 From: Lauren Mckeon MD PCP: Nicolás MORELAND,Eric Lebron Status: REG CLI Study: Spine Lumbar W/WO Contrast Date of Exam: 07/17/17 Exam# [id number] Ordering Dr: Chayo Monteiro MD MR Spine Lumbar WO/W Contrast INDICATION: radiculopathy, post lami syndrome, lbp, right leg pain, hx prev surgery 12-29-16, pain worse since surgery COMPARISON: CT pelvis July 05, 2017 TECHNIQUE: Multiplanar multisequence MRI examination of the lumbar spine without and with IV contrast. 10 mL Gadavist were given intravenously. FINDINGS: There is evidence of L5-S1 evidence of right-sided laminectomy and apparently right sided microdiscectomy without evidence of hardware placement. There is stable 7 mm anterolisthesis of L5 on S1, otherwise normal lumbar lordosis. At the level of surgery there is fluid and enhancing material seen extending along the surgical access posteriorly to the L4- 5 level and right laterally along the right L4 and L5 spinous processes. Enhancing material is seen in the right hemilaminectomy defect, the right epidural space and there is enhancement of the right lateral aspect of the L4 superior endplate and L5 inferior endplate. There is no evidence of associated fluid collection in the L4-5 disc space and no evidence of bone marrow enhancement or edema. Findings appear therefore postsurgical and there is no convincing evidence of infection. The conus is located at the T12 level and is morphologically unremarkable. There is normal distribution of the nerve roots of the cauda equina. The dural sac is normal in caliber at all levels and there is no evidence of mass effect on to the cauda equina. T12-L1 level, L1-L2 level, L2-3 level and L3-4 level are unremarkable. L4-5 level demonstrates degenerative disc disease with disc dehydration, and decrease in disc height. The disc is circumferentially bulging and there is a superimposed right paracentral focal disc protrusion with disc material extending into the right lateral recess. Disc osteophytes are seen extending into the right new foramen. Combination of the findings result in minimal spinal canal and left neuroforaminal narrowing and moderate to severe right neuroforaminal stenosis. L5-S1 level demonstrate degenerative and postsurgical changes as detailed above. Spinal canal and neuroforamina are mildly narrowed. MRI/Spine Lumbar W/WO Contrast IMPRESSION: Postsurgical changes from L5-S1 right hemilaminectomy with postsurgical enhancement likely due to granulation tissue. No convincing evidence of infection. Mild spinal canal and bilateral neuroforaminal narrowing at this level. Degenerative disc disease at L4-5 with posterior disc bulging and focal disc protrusion into the right lateral recess resulting in right lateral recess stenosis and severe right neuroforaminal stenosis at this level. at 1552 Reported and signed by: Lauren Mckeon MD Electronically Signed: Lauren Mckeon MD at 14:50 EDT Tel , Service support , CC: Chayo Monteiro M.D.; Eric Monzon MD [employer] Sales Specialist: Signed SURGERY VISIT REPORT Observed: 07/12/2017 Status: F Source: [place] 10:[address] 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 Is patient in pain?: Yes (low abdomen) Pain scale (1-10): 6 Allergies diphenhydramine HCl [From Benadryl] Allergy (Verified 07/05/17 11:40) Rash ibuprofen Allergy (Verified 07/05/17 11:40) Anaphylaxis Medications traMADol [Ultram] 50 mg PO Q6H PRN PRN #10 tab 05/14/13 [Rx Confirmed 07/12/17] Atorvastatin Calcium [Lipitor] 40 mg PO QHS 07/05/17 [History Confirmed 07/12/17] Docusate Sodium [Colace] 100 mg PO BID #20 cap 07/05/17 [Rx Confirmed 07/12/17] Gabapentin [Gralise] 600 mg PO BID 07/05/17 [History Confirmed 07/12/17] Losartan Potassium [Cozaar] 100 mg PO DAILY 07/05/17 [History Confirmed 07/12/17] amoxicillin 875 mg-potassium clavulanate 125 mg tablet 1 tab PO BID #20 tab 07/12/17 [Rx Confirmed 07/12/17] oxycodone-acetaminophen 5 mg-325 mg tablet 1 - 2 tab PO Q4H PRN PRN 7 Days #10 tab 07/12/17 [Rx Confirmed 07/12/17] PFSH Medical History Perirectal abscess (Acute) hypercholesterolemia (Acute) HTN (hypertension) (Chronic) Surgical History H/O bariatric surgery (Acute) H/O laparoscopy (Acute) History of appendectomy (Acute) History of back surgery (Acute) Social History Smoking Status: Current every day smoker HPI HPI HPI: SEBASTIAN GIPSON, is a 47 M who presents to the office today for follow-up for perirectal abscess. The patient had a high perirectal abscess in the emergency room. It was too high for external drainage and it was small so he was started on antibiotics. He reports he is doing much better he feels like the abscess is still there but getting much smaller. He is having bowel movements and no problems. He is taking stool softeners. He is having no fevers or chills or purulent discharge from the rectum. ROS General General: No weight change or fatigue Cardio Cardiovascular: No murmur, pacemaker or heart disease Psych Psychiatric: No depression or anxiety Resp Respiratory: No shortness of breath, No sleep apnea, No cough Gastro Gastrointestinal: No abdominal pain, No hemorrhoids, No blood in stool, No nausea or vomiting, No diarrhea Exam Resp Auscultation: clear to auscultation bilaterally Cardio Rate: regular rate Rhythm: regular rhythm Heart Sounds: no murmurs GI Inspection: non-distended Palpation: soft, nontender Assessment AND Plan Problems 1. Perirectal abscess K61.1 Plan 1. Patient is following up for perirectal abscess. He does report improvement with oral antibiotics. He is having no fevers or chills at this time. Continue current plan and follow-up in 1 week. I have renewed his antibiotics. 2. The patient reports that he has had multiple bouts of these perirectal abscesses and that they do run in his family. This raises a concern for inflammatory bowel disease. The patient will need to see a colorectal surgeon and GI doctor after his abscesses resolved for further workup. Neymar Perez MD Pager: [facility] [address], [address] [place] [address] Office: Medications Changed: Refilled: Coding Level of Care Code Off vis,est,level 3 Diagnoses Perirectal abscess K61.1 07/12/17 1030 <Electronically signed by Neymar Perez MD> Date Neymar Perez MD Cosigner Signature: Date (if applicable) CC: Eric Monzon MD CBC W/DIFF, AUTOMATED Collected: 07/11/2017 Status: F Source: [place] 10:27 AM [facility] [place] REPOSITORY TYPE CODE TESTS RESULT OUT OF RANGE REFERENCE UNITS LAB L100.1000 4.4-11.0 K/mm3 Normal WBC 8.7 LAB L100.1200 4.6-6.2 M/mm3 Low RBC 4.14 LAB L100.1300 13.0-16.5 g/dl Normal HGB 13.7 LAB L100.1400 40-54 % Normal HCT 41.2 LAB L100.1500 80-94 fL High MCV 99.5 LAB L100.1600 27.0-32.0 pg High MCH 33.1 LAB L100.1700 32-36 g/gl Normal MCHC 33.3 LAB L100.1810 11.6-14.6 % High RDW CV 16.2 LAB L100.1820 35.1-43.9 fl High RDW SD 58.8 LAB L100.1900 150-450 K/mm3 Normal PLT 305 LAB L100.2000 6.2-12.0 fl Normal MPV 10.6 LAB L100.2100 47-70 % Normal NEUT% 55.3 LAB L100.2200 19-41 % Normal LY% 34.3 LAB L100.2300 0-10 % Normal MONO% 6.2 LAB L100.2400 0-5 % Normal EO% 2.4 LAB L100.2500 0-1 % Normal BASO% 0.5 LAB L100.2550 0.0-0.9 % High IM GRAN % 1.300 Result Comment: IG% - Immature Granulocytes (promyelocytes, myelocytes and metamyelocytes) > 1% indicates that a LEFT SHIFT is Present. LAB L100.2620 2.0-7.7 X10 3/uL Normal Absolute Neut 4.8 LAB L100.2720 0.83-4.51 X10 3/ul Normal Absolute Lymph 2.97 Performed By: #### L100.0100 #### [facility] [address] [place], [address] COMPREHENSIVE METABOLIC Collected: 07/11/2017 Status: F Source: [facility] 10:27 AM [facility] [place] REPOSITORY TYPE CODE TESTS RESULT OUT OF RANGE REFERENCE UNITS LAB L501.0100 74-106 mg/dL Normal GLU 84 Result Comment: Please note revised GLUCOSE reference range effective 2017. LAB L501.1000 7-18 mg/dL Normal BUN 12 LAB L501.1100 0.70-1.30 mg/dL Normal CREAT,SERUM 1.26 Result Comment: The validity of the calculated GFR AND GFRAA in patients over 70 years has not been determined. Clinical correlation is essential. LAB L501.1110 >60 mL/min Normal EST GFR 66 Result Comment: Non- GFR Calc LAB L501.1115 >60 mL/min Normal EST GFR - AA 80 Result Comment: GFR Calc LAB L501.1300 10-20 RATIO Low BUN/CRE 9.5 LAB L501.1500 6.4-8.2 g/dL High T PROT 8.9 LAB L501.1800 3.2-5.0 g/dL Normal ALB 3.6 LAB L501.1950 2.2-4.2 g/dL High GLOB 5.3 LAB L501.2000 0.9-2.4 RATIO Low A/G 0.7 LAB L501.2200 8.5-10.1 mg/dL Low CA 8.3 LAB L501.4100 15-37 U/L Normal AST 24 LAB L501.4305 45-117 U/L Normal ALK P 99 LAB L501.4405 16-61 U/L Normal ALT 26 Result Comment: Please note revised ALT reference range effective 2017. LAB L501.4600 0.20-1.00 mg/dL Normal T BILI 0.20 LAB L501.5300 136-145 mmol/L Normal NA 139 LAB L501.5600 3.5-5.1 mmol/L Normal K 4.2 LAB L501.5900 98-107 mmol/L Normal CL 106 LAB L501.6100 21.0-32.0 mmol/L Normal CO2 25.0 LAB L501.6200 5-15 Normal GAP 8 Performed By: #### L500.4050, L501.9520 #### [facility] [address] [place], [address] THYROID STIM HORMONE Collected: 07/11/2017 Status: F Source: [place] (T[facility]) 10:27 AM [facility] [place] REPOSITORY TYPE CODE TESTS RESULT OUT OF RANGE REFERENCE UNITS LAB L501.9520 0.358-3.74 uIU/mL High TSH 91.40 Performed By: #### L500.4050, L501.9520 #### [facility] [address] [place], [address] EMERGENCY DEPARTMENT Observed: 07/05/2017 Status: F Source: [place] SUMMARY 5:01 PM [facility] [place] REPOSITORY [facility] Medical Records Department [address] [place] [address] Emergency Department Summary 07/05/17 1054 MR#: [id number] Acct: [id number] Name: SEBASTIAN GIPSON Rep #: [id number] : 1970 47 From: Melodie Spencer MD PCP: Nicolás MORELAND,Eric Lebron Status: DEP ER - ER Visit Summary Date of Service: 07/05/17 Chief Complaint: [] Rectal pain for a few days history of rectal masses History of Present Illness: The patient is a 47 M [] said rectal pain for a few days he has history of hypertension and he reports a history of developing some type of unspecified rectal mass possibly cyst or abscesses that require surgery indications had 5 or 6 surgeries related to these rectal masses most recently 2016 at a [place] hospital and then 2015 at a hospital in [place]. He was told he did not require additional surgery he does not know why he is developing these masses, he has no history of immunocompromised conditions his only past history is for hypertension is well controlled he is able to eat and drink without difficulty no fever he does complain of some discomfort with stooling but no blood per rectum no trauma Physical Examination: [] Unremarkable he is drinking a liquidy beverage in the room his HEENT exam is unremarkable neck is supple lungs are clear the heart tones are unremarkable the abdomen is obese but soft the rectal exam shows nothing acute he has some very mild discomfort to the rectal exam the prostate is not obviously tender there is no obvious fullness fluctuance or mass the rectal vault showed some runny brown stool, lower extremities are unremarkable the rest of his exam was unremarkable Test Results: [] Emergency Department Course and Treatment: [] Patient's labs are unremarkable, per radiology on CT there is a about a 2 cm possible abscess posterior rectum please see that report there is a potential additional satellite lesion. Patient's been medicated IV antibiotics of been started. I spoke with Dr. matamoros of surgery he came down to see the patient discussed outpatient plan which includes Augmentin Percocet management at home for a few days if not improved further options were discussed with the patient that he will pursue directly office in addition the patient understands that he can return to the emergency department if his symptoms change or intensified anyway but he is comfortable with discharge home Treatment Plan: [] Disposition: [] Home stable Impression: [] Rectal abscess history of same, causing rectal pain This note was generated with Meebo dictation software. It may contain incorrect words, spelling, and punctuation that were not noted in review of the chart prior to signing ED Disposition - Plan for ED Patient: Chief Complaint: Wound Prescriptions: Oxycodone HCl/Acetaminophen [Percocet 5/325] 1 - 2 tab PO Q4H PRN PRN 7 Days #30 tab PRN Reason: Pain Amoxicillin/Potassium Clav [Augmentin 875-125 Tablet] 1 ea PO BID #20 tab Docusate Sodium [Colace] 100 mg PO BID #20 cap Referrals: Eric Monzon Chi, MD [Primary Care Provider] - What to do if you have Problems For any increased pain, shortness of breath, bleeding, nausea or vomiting, chest pain, or any unexpected problems, contact your Primary Care Provider. Call [facility] ([phone]) or report to the closest Emergency Room. Call 911 if necessary. 07/05/17 1701 <Electronically signed by Melodie Spencer MD> Date Melodie Spencer MD Cosigner Signature (If Indicated): Date CC: Eric Monzon MD DISCHARGE INSTRUCTION Observed: 07/05/2017 Status: F Source: [place] 3:13 PM [facility] REPOSITORY [facility] Medical Records Department [address] [place] [address] Discharge Instruction 07/05/17 1511 MR#: [id number] Acct: [id number] Name: SEBASTIAN GIPSON Rep #: [id number] : 1970 47 From: Melodie Spencer MD PCP: Eric Monzon MD, Chi Status: REG ER ED Disposition - Plan for ED Patient: Chief Complaint: Wound Instructions: ED Lilo Anal Abscess Abx Only Prescriptions: Oxycodone HCl/Acetaminophen [Percocet 5/325] 1 - 2 tab PO Q4H PRN PRN 7 Days #30 tab PRN Reason: Pain Amoxicillin/Potassium Clav [Augmentin 875-125 Tablet] 1 ea PO BID #20 tab Docusate Sodium [Colace] 100 mg PO BID #20 cap Referrals: Eric Monzon Chi, MD [Primary Care Provider] - What to do if you have Problems For any increased pain, shortness of breath, bleeding, nausea or vomiting, chest pain, or any unexpected problems, contact your Primary Care Provider. Call [facility] ([phone]) or report to the closest Emergency Room. Call 911 if necessary. 07/05/17 1513 <Electronically signed by Melodie Spencer MD> Date Melodie Spencer MD Cosigner Signature (If Indicated): Date CC: Eric Monzon MD CONSULTATION Observed: 07/05/2017 Status: F Source: [place] 2:56 PM [facility] REPOSITORY [facility] Medical Records Department [address] [place] [address] Consultation 07/05/17 1444 MR#: [id number] Acct: [id number] Name: SEBASTIAN GIPSON Rep #: [id number] : 1970 47 From: Neymar Perez MD PCP: Eric Monzon MD, Chi Status: REG ER Y Location: ED Problem List (1) Perirectal abscess Status: Acute Reason for Consult Date of Consultation: 07/05/17 Reason for Consultation: Perirectal abscess History of Present Illness: The patient is a 47 year old M who is here for rectal pain. He has had several surgeries in the past by colorectal surgeons for recurrent abscesses and fistulas. He says he does not have diarrhea or blood in his stool on a chronic basis and has no history of Crohn's disease. He reports the pain started a few days ago. He says he feels very full like he has to have a bowel movement. He has no fevers or chills. Past Medical History Allergies diphenhydramine HCl [From Benadryl] Allergy (Verified 07/05/17 11:40) Rash ibuprofen Allergy (Verified 07/05/17 11:40) Anaphylaxis Home Medications: Ambulatory Orders Medication Instructions Recorded traMADol [Ultram] 50 mg PO Q6H PRN PRN #10 tablet 05/14/13 Surgical History: - - Multiple rectal abscess drainages Smoking Status: Current every day smoker - *Family History Maternal History Items: No pertinent history Review of Systems Constitutional: Denies: Anorexia, Chills, Fever HEENT: Denies: Difficulty Swallowing Cardiovascular: Denies: Chest Pain Respiratory: Denies: Cough, Pleuritic Pain Gastrointestinal: Reports: - - Rectal pain. Denies: Abdominal Pain Genitourinary: Denies: Dysuria Neurological: Denies: Balance problems, Blurred vision Psychiatric: Denies: Anxiety, Depression Patient Problems: Active and Suspected Problems Perirectal abscess (Acute) - Physical Exam General: Alert, Cooperative HEENT: Atraumatic, PERRLA, EOMI Oral: Moist Mucosa Neck: Supple Lungs: Clear to auscultation, Normal air movement Cardiovascular: Regular rate, Regular Rhythm Abdomen: Soft, Non Tender, Non-Distended Extremities: No clubbing Skin: No rashes Musculoskeletal: No Muscle Wasting Neurological: Cranial nerves II-XII grossly intact Psych/Mental Status: Normal Affect, Appropriate Vital Signs Temp Pulse Resp BP Pulse Ox 98.1 F 101 H 24 H 153/104 H 100 07/05/17 10:40 07/05/17 10:40 07/05/17 10:40 07/05/17 10:40 07/05/17 10:40 Oxygen Delivery Method Room Air Weight: 263 lb 10.766 oz Body Mass Index (BMI) 36.8 Laboratory Tests Past 24 Hrs Clinical Impression(s) from Imaging Studies Pelvis CT 07/05/17 11:20 IMPRESSION: Posterior rectal wall tiny abscesses, largest is approximate 2 cm diameter until proven otherwise. Very low probability neoplasm/metastasis is not entirely excluded without clinical correlation. Presacral fascia planes with possible minimal fluid suggesting inflammatory process or postsurgical changes given history. Mild prostamegaly. ER physician notified and acknowledged above results by Dr. Penny via telephone 07/05/2017 at approximately 1:00 PM. L4-L5 at least moderate posterior disc protrusion appears to impinge the dural sac with moderate to severe spinal canal stenosis. Bilateral L5 pars defects with mild anterolisthesis L5 over S1 noted, grade 1. Electronically Signed: Horacio Penny, at 13:12 EDT Tel , Service support , Assessment/Plan Active and Suspected Problems Perirectal abscess (Acute) 47-year-old male with perirectal abscesses 1. Patient CT shows multiple abscesses posteriorly in the perirectal area. These are very high up and are not seen externally. There are also small. The largest is 2 cm. His white count is normal he is having no fevers or chills. 2. I recommend trying to treat these conservatively with antibiotics as they are not amenable to open drainage externally. If the patient worsens in any way I will take him for internal drainage and repeat a CAT scan. I will provide the patient with pain medication and antibiotics and will see him in 1 week in the office. If he worsens at any time between now and then I have advised him to call the hospital or my office. Neymar Perez MD Pager: [facility] [address], [address] [place] [address] Office: 07/05/17 6979 <Electronically signed by Neymar Perez MD> Date Neymar Perez MD Cosigner Signature (if applicable): Date CC: Eric Monzon MD Signed URINALYSIS, COMPLETE Collected: 07/05/2017 Status: F Source: [place] 11:45 AM [facility] REPOSITORY Order Comment: Order Date: 07/05/17 Has pt arrived? Y How was Urine Obtained? CLEAN CATCH TYPE CODE TESTS RESULT OUT OF RANGE REFERENCE UNITS LAB L400.3000 Yellow COLOR Normal Yellow LAB L400.3050 Clear Normal CLARITY Clear LAB L400.3200 Normal mg/dl Normal GLUCOSE, UR Normal LAB L400.3300 Negative mg/dL Normal BILIRUBIN URINE Negative LAB L400.3400 Negative mg/dl Normal KETONE UR Negative LAB L400.3465 1.002-1.030 Normal SP.GR. DIPSTX 1.015 LAB L400.3550 5.0 - 8.0 pH UR Normal 6.0 LAB L400.3600 Negative mg/dl PROT Normal DIPSTX Negative LAB L400.3700 Normal mg/dl High 1 UROBILI LAB L400.3750 Negative Normal NITRITE UR Negative LAB L400.3780 Negative /ul Normal OCCULT BLOOD-UR Negative LAB L400.3800 Negative /ul High LEUK 25 ESTERASE LAB L400.4050 0-5 /hpf WBC Normal 5-10 SEEN LAB L400.4100 0-5 /hpf Normal RBC-UA 0-5 SEEN LAB L400.4150 0-5 /hpf SQUAM Normal EPI 0-5 SEEN LAB L400.4300 None Seen /hpf 0 Normal BACTERIA SEEN LAB L400.4350 <or=2+ /hpf 0 Normal MUCUS, URINE SEEN Performed By: #### L400.0001 #### [facility] [address] [place], [address] Observed: 07/05/2017 Status: F Source: [place] CULTURE, URINE 11:45 AM [facility] REPOSITORY Order Date: 07/05/17 Has pt arrived? Y Urine Culture Probable skin contaminants Below infection level. ORGANISM 1: Mixed Gram Positive Organisms [place] Count <1000 Performed By: #### M100.0650 #### [facility] [address] [place], [address] CBC W/DIFF, AUTOMATED Collected: 07/05/2017 Status: F Source: [place] 11:25 AM [facility] REPOSITORY TYPE CODE TESTS RESULT OUT OF RANGE REFERENCE UNITS LAB L100.1000 4.4-11.0 K/mm3 Normal WBC 8.4 LAB L100.1200 4.6-6.2 M/mm3 Low RBC 4.28 LAB L100.1300 13.0-16.5 g/dl Normal HGB 14.4 LAB L100.1400 40-54 % Normal HCT 42.4 LAB L100.1500 80-94 fL High MCV 99.1 LAB L100.1600 27.0-32.0 pg High MCH 33.6 LAB L100.1700 32-36 g/gl Normal MCHC 34.0 LAB L100.1810 11.6-14.6 % High RDW CV 16.0 LAB L100.1820 35.1-43.9 fl High RDW SD 57.0 LAB L100.1900 150-450 K/mm3 Normal PLT 223 LAB L100.2000 6.2-12.0 fl Normal MPV 11.0 LAB L100.2100 47-70 % Normal NEUT% 68.9 LAB L100.2200 19-41 % Normal LY% 20.9 LAB L100.2300 0-10 % Normal MONO% 6.8 LAB L100.2400 0-5 % Normal EO% 2.4 LAB L100.2500 0-1 % Normal BASO% 0.5 LAB L100.2550 0.0-0.9 % Normal IM GRAN % 0.500 Result Comment: IG% - Immature Granulocytes (promyelocytes, myelocytes and metamyelocytes) > 1% indicates that a LEFT SHIFT is Present. LAB L100.2620 2.0-7.7 X10 3/uL Normal Absolute Neut 5.8 LAB L100.2720 0.83-4.51 X10 3/ul Normal Absolute Lymph 1.76 Performed By: #### L100.0100 #### [facility] [address] [place], [place] [address], [address] BASIC METABOLIC Collected: 07/05/2017 Status: F Source: [place] PROFILE (BMP) 11:25 AM [facility] REPOSITORY TYPE CODE TESTS RESULT OUT OF RANGE REFERENCE UNITS LAB L501.0100 74-106 mg/dL Normal GLU 91 Result Comment: Please note revised GLUCOSE reference range effective 2017. LAB L501.1000 7-18 mg/dL Normal BUN 11 LAB L501.1100 0.70-1.30 mg/dL High CREAT,SERUM 1.35 Result Comment: The validity of the calculated GFR AND GFRAA in patients over 70 years has not been determined. Clinical correlation is essential. LAB L501.1110 >60 mL/min Normal EST GFR 61 Result Comment: Non- GFR Calc LAB L501.1115 >60 mL/min Normal EST GFR - AA 73 Result Comment: GFR Calc LAB L501.1255 ml/min Normal Estimated CRCL 73.60 LAB L501.1300 10-20 RATIO Low BUN/CRE 8.1 LAB L501.2200 8.5-10 mg/dL Normal .1 CA 8.6 LAB L501.5300 136-14 mmol/L Normal 5 NA 139 LAB L501.5600 3.5-5. mmol/L Normal 1 K 4.2 LAB L501.5900 98-107 mmol/L Normal CL 103 LAB L501.6100 21.0-3 mmol/L Normal 2.0 CO2 27.0 LAB L501.6200 5-15 Normal GAP 9 Performed By: #### L500.2500, L500.3400, L501.2450 #### [facility] [address] [place], [place], [address] LIVER PROFILE Collected: 07/05/2017 Status: F Source: [place] 11:25 AM [facility] REPOSITORY TYPE CODE TESTS RESULT OUT OF RANGE REFERENCE UNITS LAB L501.1500 6.4-8.2 g/dL High T PROT 8.9 LAB L501.1800 3.2-5.0 g/dL Normal ALB 3.7 LAB L501.1950 2.2-4.2 g/dL High GLOB 5.2 LAB L501.4100 15-37 U/L Normal AST 30 LAB L501.4305 45-117 U/L Normal ALK P 109 LAB L501.4405 16-61 U/L Normal ALT 24 Result Comment: Please note revised ALT reference range effective 2017. LAB L501.4600 0.20-1.00 mg/dL Normal T BILI 0.40 LAB L501.4700 0.00-0.30 mg/dL Normal D BILI 0.07 Performed By: #### L500.2500, L500.3400, L501.2450 #### [facility] [address] [place], [place], [address] LIPASE Collected: 07/05/2017 Status: F Source: [place] 11:25 AM [facility] REPOSITORY TYPE CODE TESTS RESULT OUT OF RANGE REFERENCE UNITS LAB L501.2450 73-393 U/L Normal LIPASE 133 Performed By: #### L500.2500, L500.3400, L501.2450 #### [facility] [address] [place], [address] PELVIS WITH IV Observed: 07/05/2017 Status: F Source: [place] CONTRAST 11:21 AM [facility] REPOSITORY [facility] Imaging Services [address] [place] [address] Pelvis WITH IV Contrast MR#: [id number] Acct: [id number] Name: SEBASTIAN GIPSON Rep #: [id number] : 1970 M 47 From: Horacio Penny MD PCP: Nicolás MORELAND,Eric Lebron Status: REG ER Study: Pelvis WITH IV Contrast Date of Exam: 07/05/17 Exam# [id number] Ordering Dr: Melodie Spencer MD STUDY: CT PELVIS WITH CONTRAST REASON FOR EXAM: Male, 47 years old. Rectal pain and bleeding. Check for perianal/perirectal abscess. RADIATION DOSAGE (If Supplied By Facility): CTDIvol = ( 22.53 ) mGy, DLP = ( 1052.50 ) mGycm TECHNIQUE: Transaxial imaging of the pelvis was performed without oral contrast. 100 ml of Isovue 300 contrast was administered intravenously. Sagittal/coronal reconstructions reviewed. No GI contrast given due to the emergent nature of exam. Individualized dose optimization techniques were used for this CT. COMPARISON: None available. FINDINGS: CT mildly limited without GI contrast. Sr. Operations Manager scanogram imaging appears unremarkable. Normal urinary bladder with moderate distention seen and no focal enhancing lesion. Normal visualized small intestine. Normal visualized colon except the rectum shows circumferential thickening with narrowed lumen displaced anteriorly and the posterior wall rounded low-attenuation lesions, the largest is seen in the midline posteriorly approximate 2 cm diameter with central Hounsfield units 22.3 and adjacent slightly right anterolateral Satellite abnormal fluid collection is seen, proximal 0.9 cm diameter, both suspicious for rectal abscesses involving the posterior wall. Effacement is also seen of the presacral fat planes adjacent, slightly greater left versus right which may be due to inflammation/minimal fluid or postsurgical changes given history. No CT finding of free intraperitoneal air noted in this CT pelvis study. There is no pelvic or visualized inguinal region lymphadenopathy by CT size criteria identified. Prostate is approximately 4.55 x 4.0 cm, mildly enlarged. Normal visualized pelvic arteries. Normal abdominal wall without ventral/visualized inguinal bowel herniation identified. Visualized bones show moderate degenerative L4- L5 and severe degenerative L5-S1 with mild anterolisthesis L5 over S1 noted, grade I seen with associated bilateral L5 pars defects. In addition, right at least moderate posterior disc protrusion appears to impinge the dural sac at L4-L5 with moderate to severe spinal canal stenosis. CT/Pelvis WITH IV Contrast IMPRESSION: Posterior rectal wall tiny abscesses, largest is approximate 2 cm diameter until proven otherwise. Very low probability neoplasm/metastasis is not entirely excluded without clinical correlation. Presacral fascia planes with possible minimal fluid suggesting inflammatory process or postsurgical changes given history. Mild prostamegaly. ER physician notified and acknowledged above results by Dr. Penny via telephone 07/05/2017 at approximately 1:00 PM. L4-L5 at least moderate posterior disc protrusion appears to impinge the dural sac with moderate to severe spinal canal stenosis. Bilateral L5 pars defects with mild anterolisthesis L5 over S1 noted, grade 1. Electronically Signed: Horacio Penny, at 13:12 EDT Tel , Service support , CC: MD Melonie Spencer; Eric Monzon MD Solar [employer] Sales Specialist: Signed URINE DRUG SCREEN Collected: 05/25/2017 Status: F Source: [place] (VISTA) 7:21 PM [facility] REPOSITORY Order Comment: List of Drugs Taken or Suspected? . TYPE CODE TESTS RESULT OUT OF RANGE REFERENCE UNITS LAB L505.0075 TO BE Normal CONFIRMED Result Comment: CONFIRMATORY TESTING FOR ALL POSITIVE URINE DRUG SCREEN RESULTS WILL ONLY BE SENT OUT UPON PHYSICIAN ORDER. VISTA Urine Drug Screen methods provide only preliminary analytical test results. A more specific alternate chemical method must be used in order to obtain a confirmed analytical result. Gas chromatography/mass spectrometery (GC/MS) is the preferred confirmatory method. Clinical consideration and professional judgement should be applied to any drug of abuse test result, particularly when preliminary positive results are used. URINE TCA TESTING MUST BE ORDERED SEPARATELY. USE TEST MNEMONIC: [facility] LAB L505.5005 VISTA UDS PH 6 Normal LAB L505.5015 <1000 ng/mL AMPHETAMINES Normal NEGATIVE LAB L505.5025 < 200 ng/mL BARBITIURATES Normal NEGATIVE LAB L505.5035 < 200 ng/mL BENZODIAZIPINE Normal NEGATIVE LAB L505.5045 < 300 ng/mL COCAINE Normal NEGATIVE LAB L505.5055 < 500 ng/mL ECSTACY Normal NEGATIVE LAB L505.5065 < 300 ng/mL METHADONE Normal NEGATIVE LAB L505.5075 < 300 ng/mL OPIATES Normal NEGATIVE LAB L505.5085 < 25 ng/mL PCP Normal NEGATIVE LAB L505.5095 < 50 ng/mL THC Normal NEGATIVE Performed By: #### L505.5000 #### [facility] [address] [facility] [place] [place], [address] MISCELLANEOUS LAB Collected: 05/25/2017 Status: F Source: [place] PROCEDURE 7:21 PM [facility] REPOSITORY Order Comment: Test(s) Ordered: [id number] urine drug screen TYPE CODE TESTS RESULT OUT OF RANGE REFERENCE UNITS LAB L801.1541 Normal [facility] LAB TEST Result Comment: TEST [id number] 6+Oxycodone-Bund Amphetamines, Urine Negative ng/mL Snhztz=2093 Amphetamine test includes Amphetamine and Methamphetamine. Barbiturate Negative ng/mL Trxust=645 Benzodiazepines Negative ng/mL Wleddj=279 Cannabinoids Negative ng/mL Cutoff=20 Cocaine (Metabolite) Negative ng/mL Hbfcoq=497 Opiates Negative ng/mL Wgdjbo=306 Opiate test includes Codeine, Morphine, Hydromorphone, Hydrocodone. Oxycodone/Oxymorphone, Urine Negative ng/mL Dstgur=060 Test includes Oxycodone and Oxymorphone TESTING PERFORMED AT [facility]. ORIGINAL REPORT ON FILE IN LAB CONTAINS ADDITIONAL TEST SITE INFORMATION. Performed By: #### L801.1541 #### [place] [facility] [address] [place], [address] ALLERGIES ALLERGIES DATE TYPE / NAME / CODE REACTION SEVERITY SOURCE CODE 11/23/2017 Drug diphenhydramine Rash Unknown [place] Allergy/41 HCl/[id number](RXNORM Community [id number]([facility]) Repository 11/23/2017 Drug ibuprofen/[id number]( Anaphylaxis Unknown [place] Allergy/41 RXNORM) Community [id number]([facility]) Repository ENCOUNTERS ENCOUNTERS ADMIT/DISCHARGE ACCOUNT ADMITTING ENCOUNTER LOCATION SOURCE NUMBER CLASS 04/30/2018 [id number] Ambulatory [place] 6 [facility] ing:POLAB3 Repository 11/23/2017/ [id number] Ambulatory [place] 8 5 [facility] ing:SDCRoom: Repository AC15 11/13/2017 [id number] Ambulatory BMSBuilding:B [place] [facility] [place] 11/08/2017/ [id number] Ambulatory BMSBuilding:B [place] 8 3 [facility] [place] 10/08/2017 [id number] Ambulatory [place] 3 [facility] ing:LAB.FUTUR Repository E 09/06/2017 [id number] Ambulatory [place] 0 [facility] ing:POLAB3 Repository 08/31/2017/ [id number] Ambulatory [place] 8 4 [facility] ing:SDC Repository 08/29/2017 [id number] Ambulatory [place] 7 [facility] ing:PSN Repository 08/22/2017 [id number] Ambulatory [place] 1 [facility] ing:POLAB3 Repository 08/03/2017/ [id number] Ambulatory [place] 8 6 [facility] ing:SDCRoom: Repository AC07 07/23/2017 [id number] Ambulatory [place] 6 [facility] ing:CT Repository 07/17/2017 [id number] Ambulatory [place] 0 [facility] ing:MRI Repository 07/12/2017/ [id number] Ambulatory BMSBuilding:B [place] 8 8 [facility] Repository 07/11/2017 [id number] Ambulatory [place] 1 [facility] ing:POLAB3 Repository 07/05/2017/ [id number] Emergency [place] 8 4 [facility] ing:ED Repository 07/05/2017 [id number] Ambulatory BMSBuilding:B [place] 7 MS.[facility] Repository 05/25/2017 [id number] Ambulatory [place] 2 [facility] ing:LAB Repository PAYERS PAYERS ENCOUNTER GUARANTOR PAYER SUBSCRIBER SOURCE 04/30/2018 SEBASTIAN Rogers Primary SEBASTIAN [place] [id number] WOOD Insurance:CARESOURCEP UHERDOB: [facility] [place]: [id number] [id number] Repository 513[address]Vzw: ([phone]) Date:2018-04-30P O [phone] () [address]ATTN: [place] [address]PK: 04/30/2018 Secondary NOT GIVENUNK [place] Insurance:SELF PAY [facility] Number: Effective Repository Date:2018-04-30 11/23/2017 SEBASTIAN Rogers Primary SEBASTIAN [place] [id number] WOOD Insurance:CARESOURCEP ERDOB: [facility] Number: [id number], [place] [id number] Repository [address]Lko: [phone]) Date:2017-11-02P O [phone] () [address]ATTN: [place] [address]YY: 11/23/2017 Secondary NOT GIVENUNK [place] Insurance:SELF PAY [facility] Number: Effective Repository Date:2017-11-02 11/13/2017 SEBASTIAN Rogers Primary SEBASTIAN [place] [id number] WOOD Insurance:CARESOURCEP ERDOB: [facility] Number: [id number], [place] [id number] Repository [address]Krw: ([phone]) Date:2017-11-08P O [phone] (HP) [address]ATTN: [place] [address]TY: 11/13/2017 Secondary NOT GIVENUNK [place] Insurance:SELF PAY [facility] Number: Effective Repository Date:2017-11-08 11/08/2017 SEBASTIAN Rogers Primary SEBASTIAN [place] [id number] WOOD Insurance:CARESOURCEP UHERDOB: [facility] Number: [id number], [place] [id number] Repository 260[address]Pqb: ([phone]) Date:2017-10-30P O [phone] () [address]ATTN: [place] [address]WB: 11/08/2017 Secondary NOT GIVENUNK [place] Insurance:SELF PAY [facility] Number: Effective Repository Date:2017-11-08 10/08/2017 SEBASTIAN T Primary SEBASTIAN Feldmanoster [id number] WOOD Insurance:CARESOURCEP UHERDOB: [facility] Number: [id number], [place] [id number] Repository [address]Wiz: ([phone]) Date:2017-08-30P O [phone] () [address]ATTN: [place] [address]RH: 10/08/2017 Secondary NOT GIVENUNK [place] Insurance:SELF PAY [facility] Number: Effective Repository Date:2017-08-30 09/06/2017 SEBASTIAN T Primary SEBASTIAN Feldmanoster [id number] WOOD Insurance:CARESOURCEP UHERDOB: [facility] Number: [id number], [place] [id number] Repository [address]Uha: ([phone]) Date:2017-09-06 O [phone] (HP) [address]ATTN: [place] [address]MR: 09/06/2017 Secondary NOT GIVENUNK [place] Insurance:SELF PAY [facility] Number: Effective Repository Date:2017-09-06 08/31/2017 SEBASTIAN Rogers Primary SEBASTIAN Feldmanoster [id number] WOOD Insurance:CARESOURCEP UHERDOB: [facility] Number: [id number], [place] [id number] Repository [address]Iaw: ([phone]) Date:2017-08-30P O [phone] () [address]ATTN: [place] [address]LQ: 08/31/2017 Secondary NOT GIVENUNK [place] Insurance:SELF PAY [facility] Number: Effective Repository Date:2017-08-30 08/29/2017 SEBASTIAN Rogers Primary SEBASTIAN Feldman[place] [id number] WOOD Insurance:CARESOURCEP UHERDOB: [facility] Number: [id number], [place] [id number] Repository 828[address]Dod: ([phone]) Date:2017-05-31P O [phone] () [address]ATTN: [place] [address]GV: 08/29/2017 Secondary NOT GIVENUNK [place] Insurance:SELF PAY [facility] Number: Effective Repository Date:2017-05-31 08/22/2017 SEBASTIAN Rogers Primary SEBASTIAN Rogers [place] [id number] WOOD Insurance:CARESOURCEP UHERDOB: [facility] Number: [id number], [place] [id number] Repository [address]Aat: ([phone]) Date:2017-08-22P O [phone] () [address]ATTN: [place] [address]FV: 08/22/2017 Secondary NOT GIVENUNK [place] Insurance:SELF PAY [facility] Number: Effective Repository Date:2017-08-22 08/03/2017 SEBASTIAN Rogers Primary SEBASTIAN [place]manoster [id number] WOOD Insurance:CARESOURCEP UHERDOB: [facility] Number: [id number], [place] [id number] Repository [address]Tda: [phone] Date:2017-08-03P O [phone] (HP) [address]ATTN: [place] [address]CT: 08/03/2017 Secondary NOT GIVENUNK [place] Insurance:SELF PAY [facility] Number: Effective Repository Date:2017-08-03 07/23/2017 SEBASTIAN Rogers Primary SEBASTIAN Rogers [place] [id number] WOOD Insurance:CARESOURCEP UHERDOB: [facility] Number: [id number], [place] [id number] Repository [address]Kqu: ([phone]) Date:2017-07-23P O [phone] () [address]ATTN: [place] [address]KZ: 07/23/2017 Secondary NOT GIVENUNK [place] Insurance:SELF PAY [facility] Number: Effective Repository Date:2017-07-23 07/17/2017 SEBASTIAN T Primary SEBASTIAN Rogers [place] [id number] WOOD Insurance:CARESOURCEP UHERDOB: [facility] Number: [id number], [place] [id number] Repository [address]Oqt: ([phone]) Date:2017-07-09P O [phone] () [address]ATTN: [place] [address]VV: 07/17/2017 Secondary NOT GIVENUNK [place] Insurance:SELF PAY [facility] Number: Effective Repository Date:2017-07-09 07/12/2017 SEBASTIAN T Primary SEBASTIAN Rogers [place] [id number] WOOD Insurance:CARESOURCEP UHERDOB: [facility] Number: [id number], [place] [id number] Repository [address]Vrx: ([phone]) Date:2017-07-06P O [phone] (HP) [address]ATTN: [place] [address]GM: 07/12/2017 Secondary NOT GIVENUNK [place] Insurance:SELF PAY [facility] Number: Effective Repository Date:2017-07-10 07/11/2017 SEBASTIAN Rogers Primary SEBASTIAN Rogers [place] [id number] WOOD Insurance:CARESOURCEP UHERDOB: [facility] [address] Number: [id number] [place], [place] [id number] Repository 310[address]Fqt: ([phone]) Date:2017-07-11P O [phone] () [address]ATTN: [place] [address]NM: 07/11/2017 Secondary NOT GIVENUNK [place] Insurance:SELF PAY [facility] Number: Effective Repository Date:2017-07-11 07/05/2017 SEBASTIAN Rogers Primary SEBASTIAN Rogers [place] [id number] WOOD Insurance:CARESOURCEP UHERDOB: [facility] [address] Number: [id number], [place] [id number] Repository [address]Tlx: ([phone]) Date:2017-07-05P O [phone] () [address]ATTN: [place] [address]VR: 07/05/2017 Secondary NOT GIVENUNK [place] Insurance:SELF PAY [facility] Number: Effective Repository Date:2017-07-05 07/05/2017 SEBASTIAN Rogers Primary SEBASTIAN Rogers [place] [id number] WOOD Insurance:CARESOURCEP UHERDOB: [facility] [address] Number: [id number] [place], [place] [id number] Repository [address]Qzo: ([phone]) Date:2017-07-05P O [phone] () [address]ATTN: [place] [address]SH: 07/05/2017 Secondary NOT GIVENUNK [place] Insurance:SELF PAY [facility] Number: Effective Repository Date:2017-07-05 05/25/2017 Sebastian [id number] Primary Sebastian UherDOB: [place] WO[address] Insurance:CARESOURCEP [id number] [facility] Number: Hospital [address]Abv: [phone] [id number] Repository [phone] (HP) Date:2017-05-25P O [address]ATTN: [place] [address]VS: 05/25/2017 Secondary NOT GIVENUNK [place] Insurance:SELF PAY [facility]: Effective Repository Date:2017-05-25
== END ==
PROVIDERS: Family Provider Family Medicine Geriatric Medicine; PCP Family Medicine Geriatric Medicine; Visit Provider Family Medicine Geriatric Medicine
DX: I10 Essential (primary) hypertension (principal)
CPT/HCPCS: 36415; 80053; 84443; 85025

== ENCOUNTER → 2018-06-21 11:58 | Outpatient (CLI) | payer MEDICAID, SELFPAY | PROVIDERS: Family Provider Family Medicine Geriatric Medicine; PCP Family Medicine Geriatric Medicine; Referring Provider Family Medicine Geriatric Medicine; Visit Provider Family Medicine Geriatric Medicine | DX: R68.83 Chills (without fever) (principal) | CPT/HCPCS: 87633 ==

== ENCOUNTER 2018-07-04 11:17 | Inpatient (IN) | payer MEDICAID, SELFPAY ==
[2018-07-04] VITALS (12 sets, daily range): BP systolic 115–159; BP diastolic 62–82; PULSE 73–96; RESP 16–18; TEMP 36.5–37.2; O2SAT 92–100; BMI 31.4; BMI 31.6; BMI 31.7
--- NOTE | 2018-07-04 | LES_PTH ---
PATIENT: VIVIAN GIPSON LOC: MS2 U#:[id number] AGE/SX: 48/M ROOM[facility] RE07/04/[address]: Dr. Cintia Jones MD : 1970 BED: 1 DIS: 07/06/2018 SPEC #: [id number] RECD: 07/05/18 09:09 STATUS: EDNA GIOVANNA #: [id number] ADDIE: 07/04/18 00:[address]: Adilson Demarco DEPT: SURGICAL PATHOLOGY RECD BY: Daniel Rodriguez ENTERED: 07/05/18 09:10 SP TYPE: Lesion OTHR DR: Dr. Eric Monzon MD Tissues: Perirectal region Procedures: Surgery Specimen Level III HEADER OPERATION: EUA and I & D of perirectal abscess PRE-OP DIAGNOSIS: Perirectal abscess TISSUE SUBMITTED: Perianal skin MICROSCOPIC DIAGNOSIS Perianal skin, biopsy: Pieces of fibroepithelial polyps (skin tags). SJ:yury 07/08/18 MICROSCOPIC DESCRIPTION Slides are reviewed. GROSS DESCRIPTION Received in fixative is one container labeled with the patient's name and designated perianal skin. The specimen consists of two polypoid fragments of monroe-brown skin measuring 1 x 0.5 x 0.4 cm and 1.2 x 0.6 x 0.6 cm. Both pieces are bisected. The entire specimen is submitted in one cassette. / SJ:rg 07/05/18 TC:5 CPT: [id number]
--- NOTE | 2018-07-04 11:33 | CT_ITS ---
STUDY: CT PELVIS WITH CONTRAST REASON FOR EXAM: Male, 48 years old. History of recurrent rectal abscess. RADIATION DOSAGE (If Supplied By Facility): CTDIvol = ( 28.21 ) mGy, DLP = ( 1136.16 ) mGycm TECHNIQUE: Transaxial imaging of the pelvis was performed without oral contrast. 100ml IV Isovue 300 was administered intravenously. Multiplanar coronal and sagittal images were reformatted. Individualized dose optimization techniques were used for this CT. COMPARISON: Comparison is made with prior study dated July 05, 2017. FINDINGS: The urinary bladder is only partially filled. There is evidence of diffuse bladder wall thickening. Normal visualized small intestine. There is circumferential wall thickening of the rectum. This is worse on the posterior and left side of the rectum. Increased markings are seen in the surrounding pelvic fat worse on the left side. This extends into the left side of the perineum and mid perineum. There is evidence of a 2.5 cm x 1.8 cm fluid collection extending to the posterior aspect of the rectum. This may represent focal abscess. There has been progression as compared to prior study. There is no pelvic fluid. There is no pelvic lymphadenopathy or mass lesion. Normal visualized pelvic arteries. Normal abdominal wall. Stable grade 1 anterior listhesis of L5 on S1 with spondylolysis of the pars interarticularis of the L5 vertebrae. CT/Pelvis WITH IV Contrast IMPRESSION: Diffuse circumferential wall thickening of the rectum with multiple small fluid areas within it as described. This is suggestive of recurrent rectal and perirectal abscesses. This extends into the left-sided the perineum as well as into the mid perineum. Electronically Signed: Grzegorz Mcnally, at 12:49 EDT , Service support ,
[2018-07-04 11:58] LABS: Absolute Lymphocyte Count 1.99 X10^3/ul (0.83-4.51); Absolute Neutrophil Count 13.4 X10^3/uL (2.0-7.7); Basophil# 0.02 X10^3/uL; Basophil% 0.1 % (0-1); Eosinophil# 0.14 X10^3/uL; Eosinophils% 0.8 % (0-5); Hematocrit 43.2 % (40-54); Hemoglobin 14.2 g/dl (13.0-16.5); Lymphocyte # 1.99 X10^3/ul (4.0); Lymphocyte % 11.9 % (19-41); Mean Corp Hgb Conc 32.9 g/gl (32-36); Mean Corpuscular Hgb 32.4 pg (27.0-32.0); Mean Corpuscular Volume 98.6 fL (80-94); Mean Platelet Vol. 11.1 fl (6.2-12.0); Monocyte# 1.21 X10^3/uL; Monocyte% 7.2 % (0-10); Neutrophil # 13.35 X10^3/uL (2.7-7.7); Neutrophil % 79.7 % (47-70); POSITIVE COUNT NO; POSITIVE DIFFERENTIAL NO; POSITIVE MORPHOLOGY NO; Platelet Count 262 K/mm3 (150-450); RBC Distribution Width SD 54.1 fl (35.1-43.9); Red Blood Count 4.38 M/mm3 (4.6-6.2); White Blood Count 16.8 K/mm3 (4.4-11.0)
[2018-07-04 12:09] LABS: Anion Gap 5 (5-15); BUN 15 mg/dL (7-18); BUN/Creat Ratio 15.7 RATIO (10-20); Calcium,Total 9.1 mg/dL (8.5-10.1); Chloride 107 mmol/L (98-107); Creatinine, Serum 0.95 mg/dL (0.70-1.30); EST Glomerular Filtration Rate 90 mL/min (>60); Est Glom Filt Rate - Afr Amer 109 mL/min (>60); Estimated Creatinine Clearance 103.48 ml/min; Glucose 85 mg/dL (74-106); Potassium 4.2 mmol/L (3.5-5.1); Sodium Level 140 mmol/L (136-145)
[2018-07-04] MEDS: Ondansetron 4 MG/2 ML Vial IV (12:10)
[2018-07-04] MEDS: 0.9% Normal Saline 1,000 ML 1000 ML IV (12:10)
[2018-07-04] MEDS: morphine 8 MG/ML Syringe IV (12:10)
[2018-07-04 12:23] LABS: Bacteria 0 SEEN /hpf (None Seen); Mucous, Urine 0 SEEN /hpf (<or=2+); Red Blood Cells-Urine 0 SEEN /hpf (0-5)
[2018-07-04 12:31] LABS: Color, Urine Yellow (Yellow); Glucose, Dipstick Normal (Normal); Ketone-Dipstick Negative (Negative); Leukocyte Esterase-Dipstick 25 /ul (Negative); Nitrite-Dipstick Negative (Negative); Occult Blood-Urine Negative /ul (Negative); Protein-Dipstick Negative (Negative); Urine Bilirubin Dipstick Negative (Negative); Urine Clarity Sl. Cloudy (Clear); Urine Urobilinogen Normal (Normal); Urine pH 6.5 (5.0 - 8.0)
[2018-07-04 12:44] LABS: Squamous Epithelial Cells - UA 5-10 SEEN /hpf (0-5); White Blood Cells 0-5 SEEN /hpf (0-5)
--- NOTE | 2018-07-04 13:14 | ED.DCSUM_ITS ---
History of Present Illness Chief Complaint: Abscess Detail of Chief Complaint: Rectal pain and difficulty moving bowels Informant: Patient Onset: Days Context: Gradual Onset Timing: Continuous Quality: Rectal pain with bowel movement Location: Rectum Current Severity: Mild Maximum Severity: Severe Worsened by: Bowel movement Relieved by: Nothing Associated Symptoms: Subjective fever and chills Narrative: Patient is a 48-year-old male with history of perirectal/ischiorectal abscesses in the past. He presents because of increasing rectal pain and fullness. He reports urge to defecate. He denies blood or mucus in his stool. He denies urologic symptoms. Prior similar symptoms: Yes Recent Illness/Hospitalization: No - Past Medical History (1) Perirectal abscess Status: Chronic (2) Hypertension Status: Chronic (3) Hypercholesterolemia Status: Chronic (4) Hypothyroidism Status: Chronic Past Medical History - Allergies and Home Meds Allergies/Adverse Reactions: Allergies diphenhydramine HCl [From Benadryl] Allergy (Verified 07/04/18 11:18) Rash ibuprofen Allergy (Verified 07/04/18 11:18) Anaphylaxis Primary Care Physician: Eric Monzon Chi, MD [Primary Care Provider] - Prior records reviewed: Yes Surgical History: noncontributory, - - Multiple rectal abscess drainages Lives: Spouse/ Significant Other Smoking Status: Former smoker Alcohol: None - Family History Maternal Family History: Reports: No pertinent history Review of Systems General: Reports: Chills, Fever, Sweats Eyes: Denies: Visual changes - bilaterally, Diplopia ENT: Denies: Rhinorrhea, Sore throat Cardiovascular: Denies: Chest pain, Palpitations Respiratory: Denies: Dyspnea, Cough, Dyspnea on exertion, Orthopnea, Paroxysmal nocturnal dyspnea Gastrointestinal: Denies: Abdominal pain, Nausea, Vomiting, Diarrhea, Melena, Hematochezia Genitourinary: Denies: Dysuria, Hematuria, Frequency Musculoskeletal: Denies: Back pain, Extremity Pain Skin: Denies: Rash, Wounds Neurological: Denies: Headache, Weakness, Numbness Hematologic: Denies: Easy bruising, Easy bleeding Physical Exam Vital Signs/Narrative: Vital Signs Temp Pulse Resp BP Pulse Ox 07/04/18 11:18 97.7 F L 73 16 153/82 H 100 Inital Vital Signs reviewed: Yes General: Well nourished, Well developed, No Acute Distress Head: Normocephalic, Atraumatic Eyes: Perrl, EOMI ENT: Moist mucous membranes, No rhinorrhea Neck: Supple, Nontender Cardiovascular: Regular rate, Regular rhythm, No murmurs Respiratory: No distress, CTA bilaterally, Chest nontender Abdomen: Soft, Nontender, Nondistended, Normal bowel sounds Rectal: Tenderness - Significant tenderness with questionable fluctuance. There is no fissures, fistulas or hemorrhoids noted. Minimal tenderness of the prostate. Back: Nontender, Normal Inspection Extremities: Nontender, No edema Skin: Normal color, No rash Neurological: Alert, Oriented x3, Cranial nerves II-XII grossly intact, Normal Strength, Normal Sensation Psychological: Normal affect, Normal Mood Diagnostic/Tx/Re-eval Impressions Pelvis CT 07/04/18 11:33 IMPRESSION: Diffuse circumferential wall thickening of the rectum with multiple small fluid areas within it as described. This is suggestive of recurrent rectal and perirectal abscesses. This extends into the left-sided the perineum as well as into the mid perineum. Electronically Signed: Grzegorz Mcnally, at 12:49 EDT , Service support , 07/04/18 11:33 Pelvis WITH IV Contrast [CT] Stat Laboratory Results 07/04/18 07/04/18 07/04/18 11:45 11:45 12:12 WBC 16.8 H RBC 4.38 L Hgb 14.2 Hct 43.2 MCV 98.6 H MCH 32.4 H MCHC 32.9 RDW 15.0 H RDW Differential 54.1 H Plt Count 262 MPV 11.1 Immature Gran % (Auto) 0.300 Neut % (Auto) 79.7 H Lymph % (Auto) 11.9 L [place] % (Auto) 7.2 Eos % (Auto) 0.8 Baso % (Auto) 0.1 Absolute Neuts (auto) 13.4 H Absolute Lymphs (auto) 1.99 Total Counted Not Reportable Sodium 140 Potassium 4.2 Chloride 107 Carbon Dioxide 28.0 Anion Gap 5 BUN 15 Creatinine 0.95 Estim Creat Clear Calc 103.48 Est GFR (MDRD) Af Amer 109 Est GFR (MDRD) Non-Af 90 BUN/Creatinine Ratio 15.7 Glucose 85 Calcium 9.1 Urine Color Yellow Urine Clarity Sl. Cloudy Urine pH 6.5 Ur Specific [place] 1.010 Urine Protein Negative Urine Glucose (UA) Normal Urine Ketones Negative Urine Occult Blood Negative Urine Nitrite Negative Urine Bilirubin Negative Urine Urobilinogen Normal Ur Leukocyte Esterase 25 H Urine RBC 0 SEEN Urine WBC 0-5 SEEN Ur Squamous Epith Cells 5-10 SEEN Urine Bacteria 0 SEEN Urine Mucus 0 SEEN - Medical Decision Making Patient with subjective fever and chills, rectal pain and abnormal rectal exam with prior history of perirectal abscess/ischial rectal abscess will obtain blood work. Since white count is elevated blood cultures and lactate were ordered and 1.[address] reveals evidence of bilateral circumferential abscess. Dr. Allred who is on-call for surgery has been paged. Patient will require admission. If lactate is elevated patient has severe sepsis otherwise he has sepsis secondary to circumferential rectal abscess Spoke with Dr. Allred who would like patient admitted to hospitalist and he will need to go the OR. Patient is to be n.p.o. Will obtain additional testing needed for clearance. ED Disposition - Plan for ED Patient: Disposition: Acute Care Hospital [facility] Diagnosis: Abscess, perirectal, Sepsis, Hypothyroidism, Hypercholesterolemia, Hypertension Referrals: Eric Monzon Chi, MD [Primary Care Provider] -
--- NOTE | 2018-07-04 13:53 | PCM.CONS.GEN ---
Problem List (1) Rectal abscess Status: Acute Reason for Consult Date of Consultation: 07/04/18 Reason for Consultation: Consult requested by Dr. Allred for preop clearance History of Present Illness: The patient is a 48 year old M presents with recurrent rectal and perirectal abscesses. Patient was doing well and is been having pain around his rectum. This is all consistent with when he has had rectal and perirectal abscesses previously. Presented to the emergency room and had a CAT scan that showed wall thickening of the rectum with multiple small fluid areas. Suggestive of recurrent rectal and perirectal abscesses. In the emergency room, patient received morphine, Zofran and Zosyn. Patient has had surgery on the previously. [] Past Medical History Past Medical History (Chronic Problems): Chronic Problems (Last Reviewed 07/12/17 @ 08:50 by Ngozi Carbajal) Hypertension (Chronic) Hypercholesterolemia (Chronic) Hypothyroidism (Chronic) Perirectal abscess (Chronic) Medical History: Medical History (Last Reviewed 07/12/17 @ 08:50 by Ngozi Carbajal) Perirectal abscess (Chronic) K61.1 hypercholesterolemia HTN (hypertension) I10 Allergies diphenhydramine HCl [From Benadryl] Allergy (Verified 07/04/18 11:18) Rash ibuprofen Allergy (Verified 07/04/18 11:18) Anaphylaxis Home Medications: Ambulatory Orders Medication Instructions Recorded traMADol [Ultram] 50 mg PO Q6H PRN PRN #10 tab 05/14/13 Atorvastatin Calcium [Lipitor] 40 mg PO QHS 07/05/17 Gabapentin [Gralise] 600 mg PO BID 07/05/17 Losartan Potassium [Cozaar] 100 mg PO DAILY 07/05/17 Levothyroxine [Synthroid] 50 mcg PO DAILY 08/03/17 Surgical History: Surgical History (Last Reviewed 07/12/17 @ 08:50 by Ngozi Carbajal) H/O bariatric surgery Z98.84 H/O laparoscopy Z98.890 History of appendectomy Z90.49 History of back surgery Z98.890 Surgical History: noncontributory, - - Multiple rectal abscess drainages Lives: Spouse/ Significant Other Smoking Status: Former smoker Alcohol: None Drugs: None - *Family History Maternal History Items: No pertinent history Paternal History Items: Stroke Review of Systems Constitutional: Reports: Malaise. Denies: Anorexia, Chills, Fever Eyes: Denies: Blurred vision, Double vision HEENT: Denies: Head Aches, Sinus Congestion, Sinus Drainage Cardiovascular: Denies: Chest Pain, Palpitations Respiratory: Denies: Cough, Shortness of breath at rest, Sputum production Gastrointestinal: Reports: Abdominal Pain. Denies: Hematochezia, Vomiting Genitourinary: Denies: Dysuria Musculoskeletal: Denies: Joint Pain, Joint Tenderness Skin: Denies: Rash, Wounds Neurological: Denies: Numbness, Tingling, Focal weakness Psychiatric: Denies: Anxiety, Depression Hematologic/ Lymphatic: Denies: Easy Bruising, Easy Bleeding, Hx of blood clot Comment: Is able to do chores around his house without chest pain or shortness of breath. A 10 point review of systems were negative except as mentioned in the history of present illness and the other review of systems. Patient Problems: Active and Suspected Problems (Last Reviewed 07/12/17 @ 08:50 by Ngozi Carbajal) Sepsis (Acute) Rectal abscess (Acute) - Physical Exam General: Alert, Cooperative, No apparent distress HEENT: Atraumatic, Normocephalic Oral: Moist Mucosa, No Gingival or Mucosal Lesions/ Ulcerations Neck: No Nodes, Thyroid Normal Size and Texture Lungs: Clear to auscultation, Normal air movement, No rhonchi, No wheeze Cardiovascular: Regular rate, Regular Rhythm, Normal S1, Normal S2, No murmurs Abdomen: Bowel Sounds Present, Soft, Non Tender, Non-Distended, No Hepato-splenomegaly Extremities: No edema, No Calf Tenderness Skin: No rashes, No breakdown Musculoskeletal: No Tenderness to Palpation of Joints or Extremities, No Muscle Wasting Neurological: - - No clonus Psych/Mental Status: Normal Affect, Appropriate Vital Signs Temp Pulse Resp BP Pulse Ox 36.5 C L 73 16 153/82 H 100 07/04/18 11:18 07/04/18 11:18 07/04/18 11:18 07/04/18 11:18 07/04/18 11:18 Oxygen Delivery Method Room Air Weight: 102.058 kg Body Mass Index (BMI) 31.4 Laboratory Tests Past 24 Hrs 07/04/18 07/04/18 07/04/18 11:45 11:45 12:12 WBC 16.8 H RBC 4.38 L Hgb 14.2 Hct 43.2 MCV 98.6 H MCH 32.4 H MCHC 32.9 RDW 15.0 H RDW Differential 54.1 H Plt Count 262 MPV 11.1 Immature Gran % (Auto) 0.300 Neut % (Auto) 79.7 H Lymph % (Auto) 11.9 L [place] % (Auto) 7.2 Eos % (Auto) 0.8 Baso % (Auto) 0.1 Absolute Neuts (auto) 13.4 H Absolute Lymphs (auto) 1.99 Total Counted Not Reportable Sodium 140 Potassium 4.2 Chloride 107 Carbon Dioxide 28.0 Anion Gap 5 BUN 15 Creatinine 0.95 Estim Creat Clear Calc 103.48 Est GFR (MDRD) Af Amer 109 Est GFR (MDRD) Non-Af 90 BUN/Creatinine Ratio 15.7 Glucose 85 Calcium 9.1 Urine Color Yellow Urine Clarity Sl. Cloudy Urine pH 6.5 Ur Specific [place] 1.010 Urine Protein Negative Urine Glucose (UA) Normal Urine Ketones Negative Urine Occult Blood Negative Urine Nitrite Negative Urine Bilirubin Negative Urine Urobilinogen Normal Ur Leukocyte Esterase 25 H Urine RBC 0 SEEN Urine WBC 0-5 SEEN Ur Squamous Epith Cells 5-10 SEEN Urine Bacteria 0 SEEN Urine Mucus 0 SEEN Assessment/Plan All Active Problems (Last Reviewed 07/12/17 @ 08:50 by Ngozi Carbajal) Postlaminectomy syndrome, not elsewhere classified (Acute) Postlaminectomy syndrome, not elsewhere classified (Acute) Radiculopathy of lumbar region (Acute) Radiculopathy of lumbar region (Acute) Intervertebral disc disorder with radiculopathy of lumbar region (Acute) Intervertebral disc disorder with radiculopathy of lumbar region (Acute) Low back pain with right-sided sciatica (Acute) Low back pain with right-sided sciatica (Acute) Sacroiliitis, not elsewhere classified (Acute) Sacroiliitis, not elsewhere classified (Acute) Inflammation of right sacroiliac joint (Acute) Inflammation of right sacroiliac joint (Acute) Acute myofascial pain (Acute) Acute buttock pain (Acute) Myalgia (Acute) Muscle spasm (Acute) Muscle spasm (Acute) Sepsis (Acute) Rectal abscess (Acute) Segmental and somatic dysfunction of lumbar region (Acute) Segmental and somatic dysfunction of pelvic region (Acute) Segmental and somatic dysfunction of thoracic region (Acute) 1. Rectal and perirectal abscesses: Recurrent Recommend continuing Zosyn while inpatient. Patient could be transitioned over to ciprofloxacin and metronidazole as outpatient to complete a 7-10-day course of antibiotics. Plan is for the patient have surgery this afternoon. From medical standpoint, patient is medically optimized to undergo surgery. No additional workup is necessary at this time. 2. Hypertension: Currently controlled. Resume losartan when able. 3. DVT prophylaxis: Would defer to general surgery. But if patient can be overnight would recommend chemical prophylaxis with Lovenox. Thank you for the consult. The hospitalist service will follow along during the course of the hospitalization. Code Visit Inpatient E&M: 79483 Init Hosp L2
--- NOTE | 2018-07-04 13:58 | CON.PCM_ITS ---
Problem List (1) Rectal abscess Status: Acute Reason for Consult Date of Consultation: 07/04/18 Reason for Consultation: Consult requested by Dr. Allred for preop clearance History of Present Illness: The patient is a 48 year old M presents with recurrent rectal and perirectal abscesses. Patient was doing well and is been having pain around his rectum. This is all consistent with when he has had rectal and perirectal abscesses previously. Presented to the emergency room and had a CAT scan that showed wall thickening of the rectum with multiple small fluid areas. Suggestive of recurrent rectal and perirectal abscesses. In the emergency room, patient received morphine, Zofran and Zosyn. Patient has had surgery on the previously. [] Past Medical History Past Medical History (Chronic Problems): Chronic Problems (Last Reviewed 07/12/17 @ 08:50 by Ngozi Carbajal) Hypertension (Chronic) Hypercholesterolemia (Chronic) Hypothyroidism (Chronic) Perirectal abscess (Chronic) Medical History: Medical History (Last Reviewed 07/12/17 @ 08:50 by Ngozi Carbajal) Perirectal abscess (Chronic) K61.1 hypercholesterolemia HTN (hypertension) I10 Allergies diphenhydramine HCl [From Benadryl] Allergy (Verified 07/04/18 11:18) Rash ibuprofen Allergy (Verified 07/04/18 11:18) Anaphylaxis Home Medications: Ambulatory Orders Medication Instructions Recorded traMADol [Ultram] 50 mg PO Q6H PRN PRN #10 tab 05/14/13 Atorvastatin Calcium [Lipitor] 40 mg PO QHS 07/05/17 Gabapentin [Gralise] 600 mg PO BID 07/05/17 Losartan Potassium [Cozaar] 100 mg PO DAILY 07/05/17 Levothyroxine [Synthroid] 50 mcg PO DAILY 08/03/17 Surgical History: Surgical History (Last Reviewed 07/12/17 @ 08:50 by Ngozi Carbajal) H/O bariatric surgery Z98.84 H/O laparoscopy Z98.890 History of appendectomy Z90.49 History of back surgery Z98.890 Surgical History: noncontributory, - - Multiple rectal abscess drainages Lives: Spouse/ Significant Other Smoking Status: Former smoker Alcohol: None Drugs: None - *Family History Maternal History Items: No pertinent history Paternal History Items: Stroke Review of Systems Constitutional: Reports: Malaise. Denies: Anorexia, Chills, Fever Eyes: Denies: Blurred vision, Double vision HEENT: Denies: Head Aches, Sinus Congestion, Sinus Drainage Cardiovascular: Denies: Chest Pain, Palpitations Respiratory: Denies: Cough, Shortness of breath at rest, Sputum production Gastrointestinal: Reports: Abdominal Pain. Denies: Hematochezia, Vomiting Genitourinary: Denies: Dysuria Musculoskeletal: Denies: Joint Pain, Joint Tenderness Skin: Denies: Rash, Wounds Neurological: Denies: Numbness, Tingling, Focal weakness Psychiatric: Denies: Anxiety, Depression Hematologic/ Lymphatic: Denies: Easy Bruising, Easy Bleeding, Hx of blood clot Comment: Is able to do chores around his house without chest pain or shortness of breath. A 10 point review of systems were negative except as mentioned in the history of present illness and the other review of systems. Patient Problems: Active and Suspected Problems (Last Reviewed 07/12/17 @ 08:50 by Ngozi Carbajal) Sepsis (Acute) Rectal abscess (Acute) - Physical Exam General: Alert, Cooperative, No apparent distress HEENT: Atraumatic, Normocephalic Oral: Moist Mucosa, No Gingival or Mucosal Lesions/ Ulcerations Neck: No Nodes, Thyroid Normal Size and Texture Lungs: Clear to auscultation, Normal air movement, No rhonchi, No wheeze Cardiovascular: Regular rate, Regular Rhythm, Normal S1, Normal S2, No murmurs Abdomen: Bowel Sounds Present, Soft, Non Tender, Non-Distended, No Hepato- splenomegaly Extremities: No edema, No Calf Tenderness Skin: No rashes, No breakdown Musculoskeletal: No Tenderness to Palpation of Joints or Extremities, No Muscle Wasting Neurological: - - No clonus Psych/Mental Status: Normal Affect, Appropriate Vital Signs Temp Pulse Resp BP Pulse Ox 36.5 C L 73 16 153/82 H 100 07/04/18 11:18 07/04/18 11:18 07/04/18 11:18 07/04/18 11:18 07/04/18 11:18 Oxygen Delivery Method Room Air Weight: 102.058 kg Body Mass Index (BMI) 31.4 Laboratory Tests Past 24 Hrs 07/04/18 07/04/18 07/04/18 11:45 11:45 12:12 WBC 16.8 H RBC 4.38 L Hgb 14.2 Hct 43.2 MCV 98.6 H MCH 32.4 H MCHC 32.9 RDW 15.0 H RDW Differential 54.1 H Plt Count 262 MPV 11.1 Immature Gran % (Auto) 0.300 Neut % (Auto) 79.7 H Lymph % (Auto) 11.9 L Yell % (Auto) 7.2 Eos % (Auto) 0.8 Baso % (Auto) 0.1 Absolute Neuts (auto) 13.4 H Absolute Lymphs (auto) 1.99 Total Counted Not Reportable Sodium 140 Potassium 4.2 Chloride 107 Carbon Dioxide 28.0 Anion Gap 5 BUN 15 Creatinine 0.95 Estim Creat Clear Calc 103.48 Est GFR (MDRD) Af Amer 109 Est GFR (MDRD) Non-Af 90 BUN/Creatinine Ratio 15.7 Glucose 85 Calcium 9.1 Urine Color Yellow Urine Clarity Sl. Cloudy Urine pH 6.5 Ur Specific [place] 1.010 Urine Protein Negative Urine Glucose (UA) Normal Urine Ketones Negative Urine Occult Blood Negative Urine Nitrite Negative Urine Bilirubin Negative Urine Urobilinogen Normal Ur Leukocyte Esterase 25 H Urine RBC 0 SEEN Urine WBC 0-5 SEEN Ur Squamous Epith Cells 5-10 SEEN Urine Bacteria 0 SEEN Urine Mucus 0 SEEN Assessment/Plan All Active Problems (Last Reviewed 07/12/17 @ 08:50 by Ngozi Carbajal) Postlaminectomy syndrome, not elsewhere classified (Acute) Postlaminectomy syndrome, not elsewhere classified (Acute) Radiculopathy of lumbar region (Acute) Radiculopathy of lumbar region (Acute) Intervertebral disc disorder with radiculopathy of lumbar region (Acute) Intervertebral disc disorder with radiculopathy of lumbar region (Acute) Low back pain with right-sided sciatica (Acute) Low back pain with right-sided sciatica (Acute) Sacroiliitis, not elsewhere classified (Acute) Sacroiliitis, not elsewhere classified (Acute) Inflammation of right sacroiliac joint (Acute) Inflammation of right sacroiliac joint (Acute) Acute myofascial pain (Acute) Acute buttock pain (Acute) Myalgia (Acute) Muscle spasm (Acute) Muscle spasm (Acute) Sepsis (Acute) Rectal abscess (Acute) Segmental and somatic dysfunction of lumbar region (Acute) Segmental and somatic dysfunction of pelvic region (Acute) Segmental and somatic dysfunction of thoracic region (Acute) 1. Rectal and perirectal abscesses: * Recurrent * Recommend continuing Zosyn while inpatient. Patient could be transitioned over to ciprofloxacin and metronidazole as outpatient to complete a 7-10-day course of antibiotics. * Plan is for the patient have surgery this afternoon. From medical standpoint, patient is medically optimized to undergo surgery. No additional workup is necessary at this time. 2. Hypertension: * Currently controlled. * Resume losartan when able. 3. DVT prophylaxis: Would defer to general surgery. But if patient can be overnight would recommend chemical prophylaxis with Lovenox. Thank you for the consult. The hospitalist service will follow along during the course of the hospitalization. Code Visit Inpatient E&M: 22138 Init Hosp L2
--- NOTE | 2018-07-04 13:59 | NURSING ---
MED SURG SARAI PERIRECTAL ABSCESS SURGERY FIRST
[2018-07-04] MEDS: Morphine 4 MG/ML Syringe IV (14:11)
[2018-07-04 14:37] LABS: Lactic Acid 1.1 mmol/L (0.4-2.0)
--- NOTE | 2018-07-04 14:40 | PCM.HP.STD ---
History of Present Illness Date of Admission: 07/04/18 Chief Complaint: perianal pain The patient is a 48 year old M with a complaint of increasing rectal pain and fullness along with defecation urge.he presented emerged from with these complaints.the patient was noted to be afebrile.White blood cell count was 16.8 thousand with a left shift. CT scan of the pelvisdemonstrated circumferential rectal wall thickening worse on the posterior left side with increased Markings on the left side evidence of a 2.5 x 1.8 cm fluid collection along the posterior aspect consistent with a perirectal abscess. The patient was seen last year for a perirectal abscess. He was treated twice with antibiotics and no drainage. He states he has had multiple incision and drainages in multiple hospitals in [place] and [place]. He had a normal colonoscopy 2 years previously Past Medical History Past Medical History (Chronic Problems): Chronic Problems (Last Reviewed 07/12/17 @ 08:50 by Ngozi Carbajal) Hypertension (Chronic) Hypercholesterolemia (Chronic) Hypothyroidism (Chronic) Perirectal abscess (Chronic) Medical History: Medical History (Last Reviewed 07/12/17 @ 08:50 by Ngozi Carbajal) Perirectal abscess (Chronic) K61.1 hypercholesterolemia HTN (hypertension) I10 Allergies diphenhydramine HCl [From Benadryl] Allergy (Verified 07/04/18 11:18) Rash ibuprofen Allergy (Verified 07/04/18 11:18) Anaphylaxis Home Medications: Ambulatory Orders Medication Instructions Recorded Acetaminophen [Tylenol] 650 mg PO PRN PRN 07/04/18 Cyanocobalamin [Vitamin B12] 1,000 mcg IM Q30D 07/04/18 Gabapentin 800 mg PO BID 07/04/18 Levothyroxine [Synthroid] 150 mcg PO DAILY 07/04/18 Losartan/Hydrochlorothiazide 1 tab PO DAILY 07/04/18 [Losartan-Hctz 100-12.5 mg Tab] Metoprolol Tartrate 25 mg PO BID 07/04/18 Surgical History: Surgical History (Last Reviewed 07/12/17 @ 08:50 by Ngozi Carbajal) H/O bariatric surgery Z98.84 H/O laparoscopy Z98.890 History of appendectomy Z90.49 History of back surgery Z98.890 Surgical History: noncontributory, - - Multiple rectal abscess drainages Lives: Spouse/ Significant Other Smoking Status: Former smoker Alcohol: None Drugs: None - *Family History Maternal History Items: No pertinent history Paternal History Items: Stroke Review of Systems Constitutional: Reports: Weight Change. Denies: Chills, Fever HEENT: Denies: Head Aches, Sinus Congestion, Sinus Drainage Cardiovascular: Denies: Chest Pain, Palpitations Respiratory: Denies: Cough, Shortness of breath at rest, Sputum production Gastrointestinal: Reports: - - anal pain and fullness. Denies: Abdominal Pain, Nausea, Vomiting Genitourinary: Denies: Dysuria Musculoskeletal: Denies: Joint Pain, Joint Tenderness Skin: Denies: Rash, Wounds Neurological: Denies: Numbness, Tingling, Focal weakness Psychiatric: Denies: Anxiety, Depression, Homicidal Ideations, Suicidal Ideations Hematologic/ Lymphatic: Denies: Easy Bruising, Easy Bleeding VTE Information - Inpt Only VTE Present on Admission: No VTE Mechan Device Prophylaxis: SCD's VTE Pharm Prophylaxis ordered?: No Patient Problems: Active and Suspected Problems (Last Reviewed 07/12/17 @ 08:50 by Ngozi Carbajal) Sepsis (Acute) Rectal abscess (Acute) - Physical Exam General: Alert, Oriented x3, Cooperative Neck: Supple, No JVD, Negative Carotid Bruits Lungs: Clear to auscultation, Normal air movement Cardiovascular: Regular rate, No murmurs Abdomen: Bowel Sounds Present, Soft, Non Tender, - - Tender in the perirectal area without obvious pointing Vital Signs Temp Pulse Resp BP Pulse Ox 97.7 F L 73 18 153/82 H 100 07/04/18 11:18 07/04/18 11:18 07/04/18 14:28 07/04/18 11:18 07/04/18 14:28 Oxygen Delivery Method Room Air Weight: 102.058 kg Body Mass Index (BMI) 31.4 Laboratory Tests Past 24 Hrs 07/04/18 07/04/18 07/04/18 11:45 11:45 12:12 WBC 16.8 H RBC 4.38 L Hgb 14.2 Hct 43.2 MCV 98.6 H MCH 32.4 H MCHC 32.9 RDW 15.0 H RDW Differential 54.1 H Plt Count 262 MPV 11.1 Immature Gran % (Auto) 0.300 Neut % (Auto) 79.7 H Lymph % (Auto) 11.9 L [place] % (Auto) 7.2 Eos % (Auto) 0.8 Baso % (Auto) 0.1 Absolute Neuts (auto) 13.4 H Absolute Lymphs (auto) 1.99 Total Counted Not Reportable Sodium 140 Potassium 4.2 Chloride 107 Carbon Dioxide 28.0 Anion Gap 5 BUN 15 Creatinine 0.95 Estim Creat Clear Calc 103.48 Est GFR (MDRD) Af Amer 109 Est GFR (MDRD) Non-Af 90 BUN/Creatinine Ratio 15.7 Glucose 85 Lactic Acid Calcium 9.1 Urine Color Yellow Urine Clarity Sl. Cloudy Urine pH 6.5 Ur Specific [place] 1.010 Urine Protein Negative Urine Glucose (UA) Normal Urine Ketones Negative Urine Occult Blood Negative Urine Nitrite Negative Urine Bilirubin Negative Urine Urobilinogen Normal Ur Leukocyte Esterase 25 H Urine RBC 0 SEEN Urine WBC 0-5 SEEN Ur Squamous Epith Cells 5-10 SEEN Urine Bacteria 0 SEEN Urine Mucus 0 SEEN 07/04/18 14:07 WBC RBC Hgb Hct MCV MCH MCHC RDW RDW Differential Plt Count MPV Immature Gran % (Auto) Neut % (Auto) Lymph % (Auto) [place] % (Auto) Eos % (Auto) Baso % (Auto) Absolute Neuts (auto) Absolute Lymphs (auto) Total Counted Sodium Potassium Chloride Carbon Dioxide Anion Gap BUN Creatinine Estim Creat Clear Calc Est GFR (MDRD) Af Amer Est GFR (MDRD) Non-Af BUN/Creatinine Ratio Glucose Lactic Acid 1.1 Calcium Urine Color Urine Clarity Urine pH Ur Specific [place] Urine Protein Urine Glucose (UA) Urine Ketones Urine Occult Blood Urine Nitrite Urine Bilirubin Urine Urobilinogen Ur Leukocyte Esterase Urine RBC Urine WBC Ur Squamous Epith Cells Urine Bacteria Urine Mucus Assessment/Plan All Active Problems (Last Reviewed 07/12/17 @ 08:50 by Ngozi Carbajal) Postlaminectomy syndrome, not elsewhere classified (Acute) Postlaminectomy syndrome, not elsewhere classified (Acute) Radiculopathy of lumbar region (Acute) Radiculopathy of lumbar region (Acute) Intervertebral disc disorder with radiculopathy of lumbar region (Acute) Intervertebral disc disorder with radiculopathy of lumbar region (Acute) Low back pain with right-sided sciatica (Acute) Low back pain with right-sided sciatica (Acute) Sacroiliitis, not elsewhere classified (Acute) Sacroiliitis, not elsewhere classified (Acute) Inflammation of right sacroiliac joint (Acute) Inflammation of right sacroiliac joint (Acute) Acute myofascial pain (Acute) Acute buttock pain (Acute) Myalgia (Acute) Muscle spasm (Acute) Muscle spasm (Acute) Sepsis (Acute) Rectal abscess (Acute) Segmental and somatic dysfunction of lumbar region (Acute) Segmental and somatic dysfunction of pelvic region (Acute) Segmental and somatic dysfunction of thoracic region (Acute) 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 The patient understands the risks, benefits, complications and possible alternative surgical procedure and consent the planned surgical procedure. The patient was given Zosyn through the emergency department. I will plan for urgent surgical procedure.
[2018-07-04] MEDS: Dibucaine 30 GM Tube 1 APPLIC (18:27)
[2018-07-04] MEDS: Bupivacaine Mpf 0.5% 30 ML VIAL (18:27)
--- NOTE | 2018-07-04 18:43 | PCM.OPRPT ---
Report of Operation Date of Procedure: 07/04/18 Pre-Operative Diagnosis: deep space/horseshoe abscess Post-Operative Diagnosis: deep space/horseshoe abscess Surgery/Procedure Performed:: Examination under anesthesia, I& D of comjplex perianal fistula, horseshoe fistula weather forecaster: None Type of Anesthesia:: General Anesthesiologist: Janna Martinez [id number] Specimen's removed: pus for culture, perianal skin Drains: 24F mushroom catheter Estimated Blood Loss (mL): 60 Fluids Replaced: 1100 Description of Procedure: The patient was brought to the operating suite. Sign in was performed verifying patient, site, procedure, position, and DVT prophylaxis with SCDs. Patient received Zosyn for antibiotic treatment for a known abscess. CT scan was reviewed demonstrating was felt to be a posterior midline deep perirectal abscess extending to both the right and left wings consistent with a horseshoe abscess. I discussed with the patient previously that this is often due to a posterior midline fistula. He had had many abscess drainages in the past which we discussed would complicate this treatment. Following induction of general anesthetic. The patient was transferred to supine position to the prone jackknife position with care being taken to avoid pressure points. The patient?s perineal area was then prepped and draped in the usual fashion. Timeout was performed verifying patient, site, procedure, and position. External examination demonstrated an overall area of fullness but no true deep pointing area or superficial erythema By digital exam revealed a fullness in thedeep posterior space and was felt to be along the right and left rectal areas. This was felt to be consistent with the CT scan findings. anoscopy was then performed which demonstrated a posterior midline anal tag and no signs of Crohn's or active colitis. An 18-gauge needle was inserted into the abscess cavity to a depth of approximately 10 cm and pus was aspirated. This was sent for aerobic and anaerobic culture. lateral probing did not demonstrate obvious pus pockets as expected. A window was made in the posterior anal midline and with significant deep dissection the pocket of pus was opened in the retrorectal space deep to the coccyx. This site was then further opened up bluntly with a long instrument. The cavity was probed. This did seem to track into the anal canal posteriorly consistent with a fistula. at the dentate line a probe was placed and this did seem to pass into the space. The mucosa overlying the posterior midline was then divided and a 0 silk pack of ties was placed as a seton. Probing the deep space abscess trying to probe laterally did not allow easy falling into either right or left side. At this point a 24F mushroom catheter was then placed deeply into the deep space posterior abscess and secured with an 0 silk suture. The mushroom catheter was irrigated with dilute hydrogen peroxid With good hemostasis, half percent Marcaine was injected in the perianal skin and dibucaine impregnated Gelfoam was placed in the anal canal. A dressing was applied and mesh pants were used to hold the dressing in place. The patient was returned to the supine position and extubated and brought to recovery room in stable condition. - Admit VTE Documentation VTE Present on Admission: No VTE Mechan Device Prophylaxis: SCD's VTE Pharm Prophylaxis ordered?: No
--- NOTE | 2018-07-04 18:47 | OP.PCM_ITS ---
Report of Operation Date of Procedure: 07/04/18 Pre-Operative Diagnosis: deep space/horseshoe abscess Post-Operative Diagnosis: deep space/horseshoe abscess Surgery/Procedure Performed:: Examination under anesthesia, I& D of comjplex perianal fistula, horseshoe fistula ammonia refrigeration technician: None Type of Anesthesia:: General Anesthesiologist: Janna Martinez [id number] Specimen's removed: pus for culture, perianal skin Drains: 24F mushroom catheter Estimated Blood Loss (mL): 60 Fluids Replaced: 1100 Description of Procedure: The patient was brought to the operating suite. Sign in was performed verifying patient, site, procedure, position, and DVT prophylaxis with SCDs. Patient rec eived Zosyn for antibiotic treatment for a known abscess. CT scan was reviewed demonstrating was felt to be a posterior midline deep perirectal abscess extending to both the right and left wings consistent with a horseshoe abscess. I discussed with the patient previously that this is often due to a posterior midline fistula. He had had many abscess drainages in the past which we discussed would complicate this treatment. Following induction of general anesthetic. The patient was transferred to supine position to the prone jackknife position with care being taken to avoid pressure points. The patient?s perineal area was then prepped and draped in the usual fashion. Timeout was performed verifying patient, site, procedure, and position. External examination demonstrated an overall area of fullness but no true deep pointing area or superficial erythema By digital exam revealed a fullness in thedeep posterior space and was felt to be along the right and left rectal areas. This was felt to be consistent with the CT scan findings. anoscopy was then performed which demonstrated a posterior midline anal tag and no signs of Crohn's or active colitis. An 18-gauge needle was inserted into the abscess cavity to a depth of approximately 10 cm and pus was aspirated. This was sent for aerobic and anaerobic culture. lateral probing did not demonstrate obvious pus pockets as e xpected. A window was made in the posterior anal midline and with significant deep dissection the pocket of pus was opened in the retrorectal space deep to the coccyx. This site was then further opened up bluntly with a long instrument. The cavity was probed. This did seem to track into the anal canal posteriorly consistent with a fistula. at the dentate line a probe was placed and this did seem to pass into the space. The mucosa overlying the posterior midline was then divided and a 0 silk pack of ties was placed as a seton. Probing the deep space abscess trying to probe laterally did not allow easy falling into either right or left side. At this point a 24F mushroom catheter was then placed deeply into the deep space posterior abscess and secured with an 0 silk suture. The mushroom catheter was irrigated with dilute hydrogen peroxid With good hemostasis, half percent Marcaine was injected in the perianal skin and dibucaine impregnated Gelfoam was placed in the anal canal. A dressing was applied and mesh pants were used to hold the dressing in place. The patient was returned to the supine position and extubated and brought to recovery room in stable condition. - Admit VTE Documentation VTE Present on Admission: No VTE Mechan Device Prophylaxis: SCD's VTE Pharm Prophylaxis ordered?: No
[2018-07-04] MEDS: oxyCODONE 5 MG Tablet PO (21:14)
[2018-07-04] MEDS: 0.9% NaCl Peripheral Flush Adult/Peds IV ×2 (22:25→22:52)
[2018-07-04] MEDS: Lactated Ringers 1,000 ML 100 ML IV (22:32)
[2018-07-04] MEDS: Gabapentin 800 MG Tablet PO (22:44)
[2018-07-04] MEDS: Metoprolol Tartrate 25 MG Tablet PO (22:44)
[2018-07-04] MEDS: Morphine 2 MG/ML Syringe IV (22:53)
[2018-07-05] VITALS (9 sets, daily range): BP systolic 92–126; BP diastolic 43–77; PULSE 59–76; RESP 16–18; TEMP 36.6–36.9; O2SAT 94–100
[2018-07-05] MEDS: 0.9% NaCl Peripheral Flush Adult/Peds IV ×2 (00:47→04:05)
[2018-07-05] MEDS: Morphine 2 MG/ML Syringe IV (00:47)
[2018-07-05] MEDS: Morphine 4 MG/ML Syringe IV (04:05)
[2018-07-05] MEDS: Levothyroxine 150 MCG Tablet PO (05:39)
--- NOTE | 2018-07-05 07:01 | PN_ITS ---
Patient Problems: Active and Suspected Problems (Last Reviewed 07/12/17 @ 08:50 by Ngozi Carbajal) Sepsis (Acute) Rectal abscess (Acute) Subjective: Patient notes ongoing severe discomfort and pressure to the region. Pain regimen was altered this morning and recommended that patient toggle between oral and IV regimen. Patient also having very intense difficulty sitting and discussed possible options including attempt to retrieve donut for patient to use while in hospital and upon discharge to home. Discussed with patient and he noted allowance of showers and currently upon discharge likely not need for sits given aggressiveness of recent intervention per surgery. Patient does note one small firm stool. Patient denies fevers, chills, nausea, emesis, abdominal pain, chest pain or dyspnea. Objective: Physical Examination: General: awake, alert, oriented x 3 and cooperative, laying in the bed in no apparent distress he does have ongoing discomfort to the perirectal region. Skin: normal color, turgor, no icterus, cyanosis except recent operative intervention to the perirectal region with a mushroom catheter and seton in the perirectal deep assess. HEENT: AT/NC, EOMI, PERRLA, MMM, no carotid bruits or JVD noted. Lungs: CTA bilaterally, moderate effort, mild decrease BL bases, no rales, ronchi or wheezing. Heart: Regular rate and rhythm; no gallop, rub audible. Abdomen: soft, obese, NTTP, mildly decreased BS, normal BS. Extremities: no cyanosis, clubbing, or edema. Neurological: patient awake, alert, oriented x 3; cognitive function intact; pupils equally reactive to light and accomodation; cranial nerves II-XII grossly normal, moving all 4 extremities, no focal deficits, strength moderately globally decreased secondary to acute presentation and recent operative intervention. Psychiatric: affect appears normal, highly fatigued, no acute evidence of depressive or anxiety feelings. Vitals/I&O's: Vital Signs Temp Pulse Resp BP Pulse Ox 98.2 F 68 18 126/77 H 97 07/05/18 04:14 07/05/18 04:14 07/05/18 04:14 07/05/18 04:14 07/05/18 04:14 Oxygen Flow Rate (L/min) 3 Oxygen Delivery Method Room Air Weight: 227 lb 1.218 oz Body Mass Index (BMI) 31.6 Intake and Output for Last 24 Hours 07/03/18 07/04/18 07/05/18 23:59 23:59 23:59 Intake Total 1700 / 1700 1716 / 1716 Output Total 125 / 125 850 / 850 Balance 1575 / 1575 866 / 866 Laboratory Results 07/04/18 11:45: WBC 16.8 H, RBC 4.38 L, Hgb 14.2, Hct 43.2, MCV 98.6 H, MCH 32.4 H, MCHC 32.9, RDW 15.0 H, RDW Differential 54.1 H, Plt Count 262, MPV 11.1, Immature Gran % (Auto) 0.300, Neut % (Auto) 79.7 H, Lymph % (Auto) 11.9 L, [place] % (Auto) 7.2, Eos % (Auto) 0.8, Baso % (Auto) 0.1, Absolute Neuts (auto) 13.4 H, Absolute Lymphs (auto) 1.99, Total Counted Not Reportable 07/04/18 11:45: Sodium 140, Potassium 4.2, Chloride 107, Carbon Dioxide 28.0, Anion Gap 5, BUN 15, Creatinine 0.95, Estim Creat Clear Calc 103.48, Est GFR (MDRD) Af Amer 109, Est GFR (MDRD) Non-Af 90, BUN/Creatinine Ratio 15.7, Glucose 85, Calcium 9.1 07/04/18 12:12: Urine Color Yellow, Urine Clarity Sl. Cloudy, Urine pH 6.5, Ur Specific [place] 1.010, Urine Protein Negative, Urine Glucose (UA) Normal, Urine Ketones Negative, Urine Occult Blood Negative, Urine Nitrite Negative, Urine Bilirubin Negative, Urine Urobilinogen Normal, Ur Leukocyte Esterase 25 H, Urine RBC 0 SEEN, Urine WBC 0-5 SEEN, Ur Squamous Epith Cells 5-10 SEEN, Urine Bacteria 0 SEEN, Urine Mucus 0 SEEN 07/04/18 14:07: Lactic Acid 1.1 Current Medications Acetaminophen (Tylenol) 650 mg PO PRN PRN PRN Reason: TEMP > 100.5 F Gabapentin (Neurontin) 800 mg PO BID CINTIA Last Admin: 07/04/18 22:44 Dose: 800 mg Hydrochlorothiazide () 12.5 mg PO DAILY [facility] Lactated Ringer's () 1,000 mls @ 100 mls/hr IV .Q10H [facility] Last Admin: 07/04/18 22:32 Dose: 100 mls/hr Piperacillin Sod/Tazobactam (Sod 3.375 gm/ Sodium Chloride) 50 mls @ 12.5 mls/hr IV Q8 [facility] Last Admin: 07/05/18 05:39 Dose: 12.5 mls/hr Levothyroxine Sodium (Synthroid) 150 mcg PO DAILY@0600 [facility] Last Admin: 07/05/18 05:39 Dose: 150 mcg Losartan Potassium (Cozaar) 100 mg PO DAILY [facility] Metoprolol Tartrate (Lopressor (Beta Marisela)) 25 mg PO BID [facility] Last Admin: 07/04/18 22:44 Dose: 25 mg Morphine Sulfate () 1 - 4 mg IV Q1H PRN PRN PRN Reason: SEVERE PAIN (6-10/10) Last Admin: 07/05/18 00:47 Dose: 2 mg Morphine Sulfate () 1 - 4 mg IV Q1H PRN PRN PRN Reason: SEVERE PAIN (6-10/10) Last Admin: 07/05/18 04:05 Dose: 4 mg Nutritional Formula (Lactose Free) (Ensure Clear) 120 ml PO TIDCM [facility] Oxycodone HCl (Oxyir) 5 - 10 mg PO Q4H PRN PRN PRN Reason: SEVERE PAIN (6-10/10) Sodium Chloride () 5 - 15 ml IV UD PRN PRN Reason: SALINE FLUSH Last Admin: 07/05/18 04:05 Dose: 10 ml Medical Necessity - Tobacco Use Smoking Status: Former smoker Assessment/Plan All Active Problems (Last Reviewed 07/12/17 @ 08:50 by Ngozi Carbajal) Postlaminectomy syndrome, not elsewhere classified (Acute) Postlaminectomy syndrome, not elsewhere classified (Acute) Radiculopathy of lumbar region (Acute) Radiculopathy of lumbar region (Acute) Intervertebral disc disorder with radiculopathy of lumbar region (Acute) Intervertebral disc disorder with radiculopathy of lumbar region (Acute) Low back pain with right-sided sciatica (Acute) Low back pain with right-sided sciatica (Acute) Sacroiliitis, not elsewhere classified (Acute) Sacroiliitis, not elsewhere classified (Acute) Inflammation of right sacroiliac joint (Acute) Inflammation of right sacroiliac joint (Acute) Acute myofascial pain (Acute) Acute buttock pain (Acute) Myalgia (Acute) Muscle spasm (Acute) Muscle spasm (Acute) Sepsis (Acute) Rectal abscess (Acute) Segmental and somatic dysfunction of lumbar region (Acute) Segmental and somatic dysfunction of pelvic region (Acute) Segmental and somatic dysfunction of thoracic region (Acute) The patient is a 48 y/o M w/ PMHx: Obesity, HTN, Chronic Neuropathy, Hypothyroidism who presents to the [facility] ED on 07/05/18 with current rectal and perirectal abscesses with ongoing aggressively worsening pain around his rectum consistent with prior symptoms with the ED CT scan demonstrated thickening the wall of the rectum as well as multiple small fluid areas suggestive of recurrent rectal and perirectal abscesses. (1) Acute Recurrent Rectal and Perirectal Abscesses: ED evaluation w/ T 97.7, heart rate 73, BP 153/82, respiratory rate 16, 100% on room air, CBC with WBC 16.8, hemoglobin 14.2, platelet 262 with left shift, 1.1, [place] CT with diffuse circumferential wall thickening of the rectum with multiple small fluid areas suggestive of recurrent rectal and perirectal abscesses with extension of the left side of the perineum as well as in the mid perineum. She admitted to medical surgical floor per Dr. Demarco, surgeon, maintained on IV Zosyn therapy, operative intervention performed on 07/04/18 with examination under anesthesia, I&D of complex perianal fistula as well as horseshoe fistula, bathing parameters and sitz per surgery discretion, PRN pain regimen, PRN antiemetic regimen, bowel regimen per primary discretion given recent interventions. Obtain to obtain seating donut for patient. (2) Hypertension: Continue home regimen including losartan, hydrochlorothiazide, metoprolol, PRN hydralazine. (3) Hypothyroidism: Continue home synthroid regimen. (4) Obesity: Weight loss and lifestyle changes encouraged. (5) DVT prophylaxis: SCDs, defer chemoprophylaxis decision to surgery primary service given recent operative interventions. Code Visit Inpatient E&M: 09666 Subs Hosp L2
[2018-07-05 07:10] LABS: Absolute Lymphocyte Count 2.05 X10^3/ul (0.83-4.51); Absolute Neutrophil Count 10.3 X10^3/uL (2.0-7.7); Basophil# 0.03 X10^3/uL; Basophil% 0.2 % (0-1); Eosinophil# 0.06 X10^3/uL; Eosinophils% 0.4 % (0-5); Hemoglobin 12.2 g/dl (13.0-16.5); Lymphocyte # 2.05 X10^3/ul (4.0); Lymphocyte % 15.1 % (19-41); Mean Corp Hgb Conc 32.1 g/gl (32-36); Mean Corpuscular Hgb 32.3 pg (27.0-32.0); Mean Corpuscular Volume 100.5 fL (80-94); Mean Platelet Vol. 11.4 fl (6.2-12.0); Monocyte# 1.05 X10^3/uL; Monocyte% 7.7 % (0-10); Neutrophil # 10.32 X10^3/uL (2.7-7.7); Neutrophil % 76.3 % (47-70); POSITIVE COUNT NO; POSITIVE DIFFERENTIAL NO; POSITIVE MORPHOLOGY NO; Platelet Count 208 K/mm3 (150-450); RBC Distribution Width CV 14.9 % (11.6-14.6); RBC Distribution Width SD 53.7 fl (35.1-43.9); Red Blood Count 3.78 M/mm3 (4.6-6.2); White Blood Count 13.6 K/mm3 (4.4-11.0)
[2018-07-05 07:43] LABS: ALB/GLOB Ratio 0.8 RATIO (0.9-2.4); AST(SGOT) 14 U/L (15-37); Alanine Aminotransfer ALT/SGPT 14 U/L (16-61); Albumin, Serum 3.1 g/dL (3.2-5.0); Alkaline Phosphatase 79 U/L (45-117); Anion Gap 5 (5-15); BUN 12 mg/dL (7-18); BUN/Creat Ratio 12.9 RATIO (10-20); Calcium,Total 8.6 mg/dL (8.5-10.1); Chloride 106 mmol/L (98-107); Creatinine, Serum 0.93 mg/dL (0.70-1.30); EST Glomerular Filtration Rate 93 mL/min (>60); Est Glom Filt Rate - Afr Amer 112 mL/min (>60); Estimated Creatinine Clearance 105.71 ml/min; Glucose 88 mg/dL (74-106); Potassium 4.4 mmol/L (3.5-5.1); Protein, Total 7.1 g/dL (6.4-8.2); Sodium Level 137 mmol/L (136-145)
[2018-07-05] MEDS: Losartan Potassium 100 MG Tablet PO (08:00)
[2018-07-05] MEDS: Ensure Clear 120 ML Liquid PO ×2 (08:00→14:46)
[2018-07-05] MEDS: Gabapentin 800 MG Tablet PO ×2 (08:00→22:08)
[2018-07-05] MEDS: Metoprolol Tartrate 25 MG Tablet PO (08:00)
[2018-07-05] MEDS: oxyCODONE 5 MG Tablet PO ×4 (08:01→20:03)
[2018-07-05] MEDS: Lactated Ringers 1,000 ML 100 ML IV (10:31)
--- NOTE | 2018-07-05 12:34 | CASEMGMT ---
DANIEL BENÍTEZ assessment: Face to Face with patient for initial transition planning/care coordination assessment. DANIEL BENÍTEZ introduced self and role at [facility], pt voices understanding and consents to assessment at this time. Pt is lying in bed in no distress at this time. Pt is A/Ox4 at this time and answers all questions appropriately at this time. Pt's sig other, Ginger Lloyd, at bedside during assessment. Care providers, pharmacy, and demographics verified at this time. PCP: Nicolás Specialists: babatunde Demarco Preferred Pharmacy: [facility] Insurance: CRS Prescription Benefit: CRSC Living Will/HPOA: Pt states does not have LW/HPOA and declines info at this time. LNOK: Ginger Lloyd, Living Arrangements: Pt states lives with SO and kids in [facility] [place] with a flight of stairs to 2nd floor and states no concerns at home at this time. Pt states independent with ADL's. Transportation: Pt states sig other drives and states no transportation concerns at this time. DME/HHC: Pt states has a cane at home and states no need for any further DME at this time. Pt states has had HHC in the past but no hx of SNF. Pt states no concerns with going home at time of discharge. Pt states is unemployed. Pt states smokes 1/2pk/day and states drinks ETOH occasionally. Pt states has had multiple, similar surgeries and states no concerns with dressing changes, etc. Pt states that sig other is able to assist. Pt states no further concerns/needs at this time. CM to follow for any further discharge planning/needs. Advised pt to ask for CM if any further questions/concerns/needs arise, voices understanding. Plan: [place] DANIEL BENÍTEZ
--- NOTE | 2018-07-05 15:25 | NURSING ---
patients significant other expressed concern with pain control. I spoke with the patient. He states the the tube is just very uncomfortable and the oxy helps for awhile but not the whole 4 hours. Discussed with patient our concern of low BP and the affect the morphine could have on that. Patient verbalized understanding. also able to verbalize to me the concern with going home tomorrow and can't have IV morphine at home. patient states he takes gabapentin at home and is taking it here. Aware one of his BP meds was held due to his low BP and verbalized understanding. discussion with patient looking at pain control that he can take at home. we will discuss with physicians and see what we can change. Patient verbalized understanding of plan and agreed. I spoke with Apryl xavier his nurse- she will page Dr. Jones and discuss options.
[2018-07-05] MEDS: Acetaminophen 500 MG Tablet PO ×2 (18:02→22:20)
--- NOTE | 2018-07-05 18:02 | PN.SURG_ITS ---
Patient Problems: Active and Suspected Problems (Last Reviewed 07/12/17 @ 08:50 by Ngozi Carbajal) Sepsis (Acute) Rectal abscess (Acute) Subjective: perianal pain, hungry for regular diet - Physical Exam General: Alert, Oriented x3 Lungs: Clear to auscultation, Normal air movement Cardiovascular: Regular rate, No murmurs Abdomen: Bowel Sounds Present, Soft, Non Tender, - - posterior midline seton and mushroom catheter in place, no signs of significant cellulitis, tender in the area Vital Signs Temp Pulse Resp BP Pulse Ox 98.5 F 64 16 109/49 L 94 07/05/18 14:00 07/05/18 14:00 07/05/18 14:00 07/05/18 14:00 07/05/18 14:00 Oxygen Flow Rate (L/min) 3 Oxygen Delivery Method Room Air Weight: 103 kg Body Mass Index (BMI) 31.6 Intake and Output for Last 24 Hours 07/03/18 07/04/18 07/05/18 23:59 23:59 23:59 Intake Total 1700 / 1700 2681 / 2681 Output Total 125 / 125 850 / 850 Balance 1575 / 1575 1831 / 1831 Microbiology Past 72 Hours 07/04/18 18:49 Gram Stain - Final Incision/Surgical Site Wound Culture - Preliminary GNR lactose tailor men's ready to wear Gram negative karla Laboratory Tests Past 24 Hrs 07/05/18 07/05/18 06:33 06:33 WBC 13.6 H RBC 3.78 L Hgb 12.2 L Hct 38.0 L MCV 100.5 H MCH 32.3 H MCHC 32.1 RDW 14.9 H RDW Differential 53.7 H Plt Count 208 MPV 11.4 Immature Gran % (Auto) 0.300 Neut % (Auto) 76.3 H Lymph % (Auto) 15.1 L [place] % (Auto) 7.7 Eos % (Auto) 0.4 Baso % (Auto) 0.2 Absolute Neuts (auto) 10.3 H Absolute Lymphs (auto) 2.05 Total Counted Not Reportable Sodium 137 Potassium 4.4 Chloride 106 Carbon Dioxide 26.0 Anion Gap 5 BUN 12 Creatinine 0.93 Estim Creat Clear Calc 105.71 Est GFR (MDRD) Af Amer 112 Est GFR (MDRD) Non-Af 93 BUN/Creatinine Ratio 12.9 Glucose 88 Calcium 8.6 Total Bilirubin 0.90 AST 14 L ALT 14 L Alkaline Phosphatase 79 Total Protein 7.1 Albumin 3.1 L Globulin 4.0 Albumin/Globulin Ratio 0.8 L Medical Necessity - Tobacco Use Smoking Status: Former smoker Assessment/Plan All Active Problems (Last Reviewed 07/12/17 @ 08:50 by Ngozi Carbajal) Postlaminectomy syndrome, not elsewhere classified (Acute) Postlaminectomy syndrome, not elsewhere classified (Acute) Radiculopathy of lumbar region (Acute) Radiculopathy of lumbar region (Acute) Intervertebral disc disorder with radiculopathy of lumbar region (Acute) Intervertebral disc disorder with radiculopathy of lumbar region (Acute) Low back pain with right-sided sciatica (Acute) Low back pain with right-sided sciatica (Acute) Sacroiliitis, not elsewhere classified (Acute) Sacroiliitis, not elsewhere classified (Acute) Inflammation of right sacroiliac joint (Acute) Inflammation of right sacroiliac joint (Acute) Acute myofascial pain (Acute) Acute buttock pain (Acute) Myalgia (Acute) Muscle spasm (Acute) Muscle spasm (Acute) Sepsis (Acute) Rectal abscess (Acute) Segmental and somatic dysfunction of lumbar region (Acute) Segmental and somatic dysfunction of pelvic region (Acute) Segmental and somatic dysfunction of thoracic region (Acute) recurrent perirectal abscess- horseshoe abscess I performed an examination under anesthesia incision and drainage of a posterior midline/horseshoe abscess. the major pus collection was noted to be retrorectal between the rectum and the coccyx/sacrum. This was approximately 10 cm deep. It was therefore challenging to find additional pockets in the right and left perirectal abscess areas. For this reason, a seton was placed in the fistulous track and a mushroom catheter placed into the cavity and was irrigated. The patient was given Zosyn through the emergency department. this is been continued. His white blood cell count is decreased from 16-13. he was advanced to regular diet. We'll try to wean narcotics.
[2018-07-06] MEDS: oxyCODONE 5 MG Tablet PO ×3 (00:32→08:36)
[2018-07-06 04:08] VITALS: BP 136/81; PULSE 60; RESP 16; TEMP 36.6; O2SAT 100
[2018-07-06] MEDS: Levothyroxine 150 MCG Tablet PO (06:06)
[2018-07-06] MEDS: 0.9% NaCl Peripheral Flush Adult/Peds IV (06:07)
[2018-07-06 06:52] LABS: Absolute Lymphocyte Count 1.94 X10^3/ul (0.83-4.51); Absolute Neutrophil Count 5.8 X10^3/uL (2.0-7.7); Basophil# 0.02 X10^3/uL; Basophil% 0.2 % (0-1); Eosinophil# 0.12 X10^3/uL; Eosinophils% 1.4 % (0-5); Hematocrit 35.9 % (40-54); Hemoglobin 11.5 g/dl (13.0-16.5); Lymphocyte # 1.94 X10^3/ul (4.0); Lymphocyte % 22.4 % (19-41); Mean Corpuscular Hgb 31.4 pg (27.0-32.0); Mean Corpuscular Volume 98.1 fL (80-94); Mean Platelet Vol. 11.3 fl (6.2-12.0); Monocyte# 0.77 X10^3/uL; Monocyte% 8.9 % (0-10); Neutrophil # 5.81 X10^3/uL (2.7-7.7); Neutrophil % 66.9 % (47-70); Platelet Count 220 K/mm3 (150-450); RBC Distribution Width CV 14.7 % (11.6-14.6); RBC Distribution Width SD 50.9 fl (35.1-43.9); Red Blood Count 3.66 M/mm3 (4.6-6.2); White Blood Count 8.7 K/mm3 (4.4-11.0)
[2018-07-06 06:53] LABS: POSITIVE COUNT NO; POSITIVE DIFFERENTIAL NO; POSITIVE MORPHOLOGY NO
--- NOTE | 2018-07-06 07:13 | PCM.PN.HOSP ---
Patient Problems: Active and Suspected Problems (Last Reviewed 07/12/17 @ 08:50 by Ngozi Carbajal) Sepsis (Acute) Rectal abscess (Acute) Subjective: Patient overnight with continued discomfort despite rotation of Tylenol narcotic therapy. He notes that is primarily just the sensation of having a large tube in place. He has been up and moving, formulated his own donut is unable to obtain one. Patient notes being eager for discharge which is planned for today. Patient denies fevers, chills, nausea, emesis, abdominal pain, chest pain or dyspnea. Objective: Physical Examination: General: awake, alert, oriented x 3 and cooperative, more comfortable appearing, lying on his side in bed, no acute distress. Skin: normal color, turgor, no icterus, cyanosis except recent operative intervention to the perirectal region with a mushroom catheter and seton in the perirectal deep assess. HEENT: AT/NC, EOMI, PERRLA, MMM. Lungs: CTA bilaterally, moderate effort, mild decrease BL bases, no rales, ronchi or wheezing. Heart: Regular rate and rhythm; no gallop, rub audible. Abdomen: soft, obese, NTTP, normalized BS. Extremities: no cyanosis, clubbing, or edema. Neurological: patient awake, alert, oriented x 3; cognitive function intact; pupils equally reactive to light and accomodation; cranial nerves II-XII grossly normal, moving all 4 extremities, no focal deficits, strength mildly to moderately globally decreased secondary to recent operative intervention. Psychiatric: affect appears normal, no acute evidence of depressive or anxiety feelings. Vitals/I&O's: Vital Signs Temp Pulse Resp BP Pulse Ox 97.9 F 60 16 136/81 H 100 07/06/18 04:08 07/06/18 04:08 07/06/18 04:08 07/06/18 04:08 07/06/18 04:08 Oxygen Flow Rate (L/min) 3 Oxygen Delivery Method Room Air Weight: 227 lb 1.218 oz Body Mass Index (BMI) 31.6 Intake and Output for Last 24 Hours 07/04/18 07/05/18 07/06/18 23:59 23:59 23:59 Intake Total 1700 / 1700 3166 / 3166 200 / 200 Output Total 125 / 125 850 / 850 Balance 1575 / 1575 2316 / 2316 200 / 200 Microbiology Past 72 Hours 07/04/18 18:49 Incision/Surgical Site Gram Stain - Final 07/04/18 18:49 Incision/Surgical Site Wound Culture - Preliminary GNR lactose epic [facility] Gram negative karla Laboratory Results 07/05/18 06:33: Sodium 137, Potassium 4.4, Chloride 106, Carbon Dioxide 26.0, Anion Gap 5, BUN 12, Creatinine 0.93, Estim Creat Clear Calc 105.71, Est GFR (MDRD) Af Amer 112, Est GFR (MDRD) Non-Af 93, BUN/Creatinine Ratio 12.9, Glucose 88, Calcium 8.6, Total Bilirubin 0.90, AST 14 L, ALT 14 L, Alkaline Phosphatase 79, Total Protein 7.1, Albumin 3.1 L, Globulin 4.0, Albumin/Globulin Ratio 0.8 L 07/06/18 06:22: WBC 8.7, RBC 3.66 L, Hgb 11.5 L, Hct 35.9 L, MCV 98.1 H, MCH 31.4, MCHC 32.0, RDW 14.7 H, RDW Differential 50.9 H, Plt Count 220, MPV 11.3, Immature Gran % (Auto) 0.200, Neut % (Auto) 66.9, Lymph % (Auto) 22.4, [place] % (Auto) 8.9, Eos % (Auto) 1.4, Baso % (Auto) 0.2, Absolute Neuts (auto) 5.8, Absolute Lymphs (auto) 1.94, Total Counted Not Reportable 07/06/18 06:22: Sodium Pending, Potassium Pending, Chloride Pending, Carbon Dioxide Pending, Anion Gap Pending, BUN Pending, Creatinine Pending, Est GFR (MDRD) Af Amer Pending, Est GFR (MDRD) Non-Af Pending, BUN/Creatinine Ratio Pending, Glucose Pending, Calcium Pending, Total Bilirubin Pending, AST Pending, ALT Pending, Alkaline Phosphatase Pending, Total Protein Pending, Albumin Pending Current Medications Acetaminophen (Tylenol) 500 mg PO Q4H PRN PRN PRN Reason: PAIN Last Admin: 07/05/18 22:20 Dose: 500 mg Gabapentin (Neurontin) 800 mg PO BID CINTIA Last Admin: 07/05/18 22:08 Dose: 800 mg Hydralazine HCl (Apresoline Iv) 10 mg IV Q4H PRN PRN PRN Reason: SBP > 160 Hydrochlorothiazide () 12.5 mg PO DAILY [facility] Last Admin: 07/05/18 10:32 Dose: Not Given Piperacillin Sod/Tazobactam (Sod 3.375 gm/ Sodium Chloride) 50 mls @ 12.5 mls/hr IV Q8 [facility] Last Admin: 07/06/18 06:07 Dose: 12.5 mls/hr Levothyroxine Sodium (Synthroid) 150 mcg PO DAILY@0600 [facility] Last Admin: 07/06/18 06:06 Dose: 150 mcg Losartan Potassium (Cozaar) 100 mg PO DAILY [facility] Last Admin: 07/05/18 08:00 Dose: 100 mg Metoprolol Tartrate (Lopressor (Beta Marisela)) 25 mg PO BID [facility] Last Admin: 07/05/18 22:26 Dose: Not Given Morphine Sulfate () 1 - 4 mg IV Q1H PRN PRN PRN Reason: SEVERE PAIN (6-10/10) Last Admin: 07/05/18 00:47 Dose: 2 mg Morphine Sulfate () 1 - 4 mg IV Q1H PRN PRN PRN Reason: SEVERE PAIN (6-10/10) Last Admin: 07/05/18 04:05 Dose: 4 mg Nutritional Formula (Lactose Free) (Ensure Enlive) 120 ml PO 4X/DAY [facility] Last Admin: 07/05/18 22:01 Dose: Not Given Ondansetron HCl (Zofran) 4 mg IV Q8H PRN PRN PRN Reason: NAUSEA/VOMITING Oxycodone HCl (Oxyir) 5 - 10 mg PO Q4H PRN PRN PRN Reason: SEVERE PAIN (6-10/10) Last Admin: 07/06/18 04:30 Dose: 10 mg Sodium Chloride () 5 - 15 ml IV UD PRN PRN Reason: SALINE FLUSH Last Admin: 07/06/18 06:07 Dose: 10 ml Medical Necessity - Tobacco Use Smoking Status: Former smoker Assessment/Plan All Active Problems (Last Reviewed 07/12/17 @ 08:50 by Ngozi Carbajal) Postlaminectomy syndrome, not elsewhere classified (Acute) Postlaminectomy syndrome, not elsewhere classified (Acute) Radiculopathy of lumbar region (Acute) Radiculopathy of lumbar region (Acute) Intervertebral disc disorder with radiculopathy of lumbar region (Acute) Intervertebral disc disorder with radiculopathy of lumbar region (Acute) Low back pain with right-sided sciatica (Acute) Low back pain with right-sided sciatica (Acute) Sacroiliitis, not elsewhere classified (Acute) Sacroiliitis, not elsewhere classified (Acute) Inflammation of right sacroiliac joint (Acute) Inflammation of right sacroiliac joint (Acute) Acute myofascial pain (Acute) Acute buttock pain (Acute) Myalgia (Acute) Muscle spasm (Acute) Muscle spasm (Acute) Sepsis (Acute) Rectal abscess (Acute) Segmental and somatic dysfunction of lumbar region (Acute) Segmental and somatic dysfunction of pelvic region (Acute) Segmental and somatic dysfunction of thoracic region (Acute) The patient is a 48 y/o M w/ PMHx: Obesity, HTN, Chronic Neuropathy, Hypothyroidism who presents to the [facility] ED on 07/05/18 with current rectal and perirectal abscesses with ongoing aggressively worsening pain around his rectum consistent with prior symptoms with the ED CT scan demonstrated thickening the wall of the rectum as well as multiple small fluid areas suggestive of recurrent rectal and perirectal abscesses. (1) Acute Recurrent Rectal and Perirectal Abscesses: ED evaluation w/ T 97.7, heart rate 73, BP 153/82, respiratory rate 16, 100% on room air, CBC with WBC 16.8, hemoglobin 14.2, platelet 262 with left shift, 1.1, Pelvic CT with diffuse circumferential wall thickening of the rectum with multiple small fluid areas suggestive of recurrent rectal and perirectal abscesses with extension of the left side of the perineum as well as in the mid perineum. She admitted to medical surgical floor per Dr. Demarco, surgeon, maintained on IV Zosyn therapy, OR 07/04/18 with examination under anesthesia, I&D of complex perianal fistula as horseshoe fistula, bathing parameters and sitz per surgery discretion although from discussions given intervention showers only fine, PRN pain regimen, PRN antiemetic regimen, bowel regimen per primary discretion given recent interventions. Attempted to obtain donut for patient; however, unable to obtain, recommended spouse obtain from local pharmacy. OR Wound Cx w/ GNR LF, NR, GP, final pending. Noted intention for discharge on augmentin. From discussions possible future planned fistulotomy once clinically improved from current acute presentation. (2) Hypertension: Continue home regimen including losartan, hydrochlorothiazide, metoprolol with hold parameters given hypotension with narcotics, PRN hydralazine. (3) Hypothyroidism: Continue home synthroid regimen. (4) Obesity: Weight loss and lifestyle changes encouraged. (5) DVT prophylaxis: SCDs, defer chemoprophylaxis decision to surgery primary service given recent operative interventions. Code Visit Inpatient E&M: 97005 Subs Hosp L2
[2018-07-06 07:16] LABS: BUN 14 mg/dL (7-18); Creatinine, Serum 0.83 mg/dL (0.70-1.30); EST Glomerular Filtration Rate 106 mL/min (>60); Estimated Creatinine Clearance 118.44 ml/min; Glucose 98 mg/dL (74-106)
[2018-07-06 07:17] LABS: ALB/GLOB Ratio 0.8 RATIO (0.9-2.4); AST(SGOT) 20 U/L (15-37); Alanine Aminotransfer ALT/SGPT 15 U/L (16-61); Albumin, Serum 3.1 g/dL (3.2-5.0); Alkaline Phosphatase 74 U/L (45-117); Anion Gap 1 (5-15); BUN/Creat Ratio 16.9 RATIO (10-20); Calcium,Total 8.6 mg/dL (8.5-10.1); Chloride 107 mmol/L (98-107); Est Glom Filt Rate - Afr Amer 129 mL/min (>60); Globulin 3.9 g/dL (2.2-4.2); Potassium 4.5 mmol/L (3.5-5.1); Sodium Level 137 mmol/L (136-145)
[2018-07-06 08:33] VITALS: BP 122/76; PULSE 61; RESP 16; TEMP 36.8; O2SAT 98
[2018-07-06 08:37] VITALS: PULSE 61
[2018-07-06] MEDS: Gabapentin 800 MG Tablet PO (08:37)
[2018-07-06] MEDS: Metoprolol Tartrate 25 MG Tablet PO (08:37)
[2018-07-06] MEDS: hydroCHLOROthiazide 12.5mg 12.5 MG PO (08:37)
[2018-07-06] MEDS: Losartan Potassium 100 MG Tablet PO (08:37)
--- NOTE | 2018-07-06 09:15 | DCINST_ITS ---
Discharge Diet: No Restrictions Discharge Activity: Return to Normal Activity, May Not Drive - while taking narcotic pain medications. Additional Activity Instructions:: Do not drive or work with heavy equipment or sign legal documents for 24 hours. Be aware that pain medications may cause nausea. You should typically eat light foods as you take your pain medications. Pain medications may also cause constipation, if you have difficulty with this please discuss with your doctor. Additional Dressing/Incision Instructions:: Leave the operative bandage on for 2 days. If a local anesthetic plug was placed in the anal area, try not to expel for 24-[address] dibucaine ointment on the perianal area as needed. Sitz baths or shower twice daily and after bowel movements. Allergies/Adverse Reactions: Allergies diphenhydramine HCl [From Benadryl] Allergy (Verified 07/04/18 11:18) Rash ibuprofen Allergy (Verified 07/04/18 11:18) Anaphylaxis Medications to take at Discharge Acetaminophen [Tylenol] 650 mg PO PRN PRN 07/04/18 Cyanocobalamin [Vitamin B12] 1,000 mcg IM Q30D 07/04/18 Gabapentin 800 mg PO BID 07/04/18 Levothyroxine [Synthroid] 150 mcg PO DAILY 07/04/18 Losartan/Hydrochlorothiazide [Losartan-Hctz 100-12.5 mg Tab] 1 tab PO DAILY 07/04/18 Metoprolol Tartrate 25 mg PO BID 07/04/18 Amoxicillin/Potassium Clav [Augmentin 875-125 Tablet] 1 ea PO BID #14 tab 07/06/18 Oxycodone [Oxyir] 5 mg PO Q6H PRN PRN 7 Days #20 tab 07/06/18 The following prescriptions were given: Oxycodone [Oxyir] 5 mg PO Q6H PRN PRN 7 Days #20 tab PRN Reason: Severe Pain (6-01/16) Amoxicillin/Potassium Clav [Augmentin 875-125 Tablet] 1 ea PO BID #14 tab Primary Care Physician: Eric Monzon Chi, MD [Primary Care Provider] - Test Results: Test results from this visit will be discussed in further detail at your follow- up appointment, if applicable. Please Follow Up With: Adilson Demarco MD - [phone] When: Plan to have a follow up Sunday
--- NOTE | 2018-07-06 09:50 | NURSING ---
Zosyn not completed infusing but patient requesting DC information. I asked patient to remain to finish the zosyn infusion and he stated he would take the IV out himself if he could not leave now.
--- NOTE | 2018-07-06 10:15 | DS.PCM_ITS ---
Discharge Date and Diagnosis - Problem List Patient Problems: Active and Suspected Problems (Last Reviewed 07/12/17 @ 08:50 by Ngozi Carbajal) Sepsis (Acute) Rectal abscess (Acute) Date of Admission: 07/04/18 Date of Discharge: 07/06/18 - Primary Discharge Diagnosis Active and Suspected Problems (Last Reviewed 07/12/17 @ 08:50 by Ngozi Carbajal) Sepsis (Acute) Rectal abscess (Acute) - Secondary Discharge Diagnosis Chronic Problems (Last Reviewed 07/12/17 @ 08:50 by Ngozi Carbajal) Hypertension (Chronic) Hypercholesterolemia (Chronic) Hypothyroidism (Chronic) Perirectal abscess (Chronic) Hospital Course and Treatment Operations: - Summary of Care Provided: The patient is a 48 year old M a history of chronic prerectal abscesses stating he has had up to 7 previous incision and drainages of his abscess. He comes in with fullness in his rectum and pain. 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 He was brought to the operative suite on July 04 and underwent a complex drainage with placement of mushroom catheter and seton. The patient had normalization of his white blood cell count on IV antibiotics and was able to be discharged home on postoperative day 2. Patient Problems: Active and Suspected Problems (Last Reviewed 07/12/17 @ 08:50 by Ngozi Carbajal) Sepsis (Acute) Rectal abscess (Acute) - Physical Exam Vital Signs Temp Pulse Resp BP Pulse Ox 98.2 F 61 16 122/76 H 98 07/06/18 08:33 07/06/18 08:37 07/06/18 08:33 07/06/18 08:33 07/06/18 08:33 Oxygen Flow Rate (L/min) 3 Oxygen Delivery Method Room Air Weight: 103 kg Body Mass Index (BMI) 31.6 Intake and Output for Last 24 Hours 07/04/18 07/05/18 07/06/18 23:59 23:59 23:59 Intake Total 1700 / 1700 3166 / 3166 200 / 200 Output Total 125 / 125 850 / 850 Balance 1575 / 1575 2316 / 2316 200 / 200 Microbiology Past 72 Hours 07/04/18 18:49 Gram Stain - Final Incision/Surgical Site Wound Culture - Preliminary GNR lactose inserter promotional item Gram negative karla Gram positive organism Laboratory Tests Past 24 Hrs 07/06/18 07/06/18 06:22 06:22 WBC 8.7 RBC 3.66 L Hgb 11.5 L Hct 35.9 L MCV 98.1 H MCH 31.4 MCHC 32.0 RDW 14.7 H RDW Differential 50.9 H Plt Count 220 MPV 11.3 Immature Gran % (Auto) 0.200 Neut % (Auto) 66.9 Lymph % (Auto) 22.4 Kendall % (Auto) 8.9 Eos % (Auto) 1.4 Baso % (Auto) 0.2 Absolute Neuts (auto) 5.8 Absolute Lymphs (auto) 1.94 Total Counted Not Reportable Sodium 137 Potassium 4.5 Chloride 107 Carbon Dioxide 29.0 Anion Gap 1 L BUN 14 Creatinine 0.83 Estim Creat Clear Calc 118.44 Est GFR (MDRD) Af Amer 129 Est GFR (MDRD) Non-Af 106 BUN/Creatinine Ratio 16.9 Glucose 98 Calcium 8.6 Total Bilirubin 0.50 AST 20 ALT 15 L Alkaline Phosphatase 74 Total Protein 7.0 Albumin 3.1 L Globulin 3.9 Albumin/Globulin Ratio 0.8 L Discharge Diet: No Restrictions Discharge Activity: Return to Normal Activity, May Not Drive - while taking narcotic pain medications. Additional Activity Instructions:: Do not drive or work with heavy equipment or sign legal documents for 24 hours. Be aware that pain medications may cause nausea. You should typically eat light foods as you take your pain medications. Pain medications may also cause constipation, if you have difficulty with this please discuss with your doctor. Additional Dressing/Incision Instructions:: Leave the operative bandage on for 2 days. If a local anesthetic plug was placed in the anal area, try not to expel for 24-[address] dibucaine ointment on the perianal area as needed. Sitz baths or shower twice daily and after bowel movements. Home Medications: Medications to take at Discharge Acetaminophen [Tylenol] 650 mg PO PRN PRN 07/04/18 Cyanocobalamin [Vitamin B12] 1,000 mcg IM Q30D 07/04/18 Gabapentin 800 mg PO BID 07/04/18 Levothyroxine [Synthroid] 150 mcg PO DAILY 07/04/18 Losartan/Hydrochlorothiazide [Losartan-Hctz 100-12.5 mg Tab] 1 tab PO DAILY 03/28/19 Metoprolol Tartrate 25 mg PO BID 07/04/18 Amoxicillin/Potassium Clav [Augmentin 875-125 Tablet] 1 ea PO BID #14 tab 07/06/18 Oxycodone [Oxyir] 5 mg PO Q6H PRN PRN 7 Days #20 tab 07/06/18 Following Prescrptions Were Given to Patient: Oxycodone [Oxyir] 5 mg PO Q6H PRN PRN 7 Days #20 tab PRN Reason: Severe Pain (-01/16) Amoxicillin/Potassium Clav [Augmentin 875-125 Tablet] 1 ea PO BID #14 tab Primary Care Physician: Eric Monzon Chi, MD [Primary Care Provider] - Please Follow Up With: Adilson Demarco MD - [phone] When: Plan to have a follow up Sunday Medical Necessity - Tobacco Use Smoking Status: Former smoker Meaningful Use Info Meaningful Use Diagnoses (Choose all that apply): None applicable
== END 2018-07-06 09:55 | disposition home or self-care (01) | DRG 710 ==
LOC: ED 13:30 → SDC 14:05 → AC 14:05 → MS2 20:34 → SDC 07-05 07:48
PROVIDERS: Admitting Provider Surgery; Emergency Provider Emergency Medicine; Family Provider Family Medicine Geriatric Medicine; PCP Family Medicine Geriatric Medicine; Referring Provider Surgery; Visit Provider Family Medicine
PROC: 0D9Q0ZZ Drainage of Anus, Open Approach (ICD-10-PCS; principal; 2018-07-04 16:00)
DX: A41.9 Sepsis, unspecified organism (principal); K61.1 Rectal abscess; K61.31 Horseshoe abscess; K60.3 Anal fistula; E03.9 Hypothyroidism, unspecified; I10 Essential (primary) hypertension; E66.9 Obesity, unspecified; Z87.891 Personal history of nicotine dependence; Z68.31 Body mass index [BMI] 31.0-31.9, adult; E78.00 Pure hypercholesterolemia, unspecified
CPT/HCPCS: 36415; 72193; 80048; 80053; 81001; 83605; 85025; 87040; 87070; 87075; 87077; 87186; 87205; 88304; 88305; 97802; 99285; J7030; J7040; J7120; Q9967; A4216; J2405

== ENCOUNTER 2018-08-07 11:55 | Emergency (ER) | payer MEDICAID, SELFPAY ==
[2018-07-04 20:30] VITALS: BMI 31.6
[2018-08-07 11:56] VITALS: BP 204/106; PULSE 85; RESP 16; TEMP 36.8; O2SAT 100; BMI 32.4
[2018-08-07] MEDS: Ketorolac 60 MG/2 ML Vial IM (12:28)
[2018-08-07] MEDS: morphine 8 MG/ML Syringe IM (12:29)
--- NOTE | 2018-08-07 12:40 | RAD_ITS ---
STUDY: X-RAY - LUMBAR SPINE REASON FOR EXAM: Male, 48 years old. CHRONIC LOW BACK PAIN, MORE RECENTLY ACUTE S/P FALL TECHNIQUE: 3 view(s) of the lumbar spine were obtained. COMPARISON: None FINDINGS: Normal lumbar lordosis. There is multilevel endplate spondylosis of the lumbar vertebrae. There is multi-level degenerative disc disease with multi-level disc space narrowing. There is atherosclerotic calcification of the abdominal aorta. RAD/Lumbar Spine 2 or 3 Views IMPRESSION: Degenerative changes of the spine. Electronically Signed: Jacqui Arroyo MD at 13:21 EDT Tel , Service support ,
--- NOTE | 2018-08-07 13:43 | ED.DCSUM_ITS ---
- ER Visit Summary Date of Service: 08/07/18 Chief Complaint: Back pain History of Present Illness: The patient is a [address] Monzon. He reports that today he missed a step and slid down 4-5 steps on his back. Did hit his head. No loss of consciousness. He denies a headache. He is not on blood t hinners. He reports his lower back pain is 10 out of 10 severity. This radiates down the back of his right he denies any paresthesias distally. He denies any other injuries. No neck, shoulder, wrist, or hip pain. Leg just distal to his buttock. On Physical Examination: Vitals: Stable. Afebrile. Neck: No vertebral tenderness. Full ROM without difficulty. Cleared by NEXUS criteria. Back: Moderate diffuse on palpation over his entire lumbar spine. He has a negative straight leg raise bilaterally. He has 5 out of 5 dorsiflexion, plantarflexion, and extensor hallucis longus bilaterally. His normal sensation light touch distally.. General: A&O x 3. NAD. Cardiovascular exam: Regular rate and rhythm, no murmur, rub or gallop. Respiratory exam: Chest nontender. No crepitus. Clear to auscultation bilaterally. No wheezes or stridor. Abdominal exam: Soft, nontender, nondistended, normal bowel sounds. No pain in RUQ or LUQ specifically. No peritoneal signs. Extremity: Atraumatic. No pain with range of motion. Test Results: X-ray of the LS spine shows degenerative changes. Emergency Department Course and Treatment: An [facility] report was obtained which shows patient had prescriptions for oxycodone at the end of June. However, he did have surgery at that time. He has not had any prescriptions for opiates since November of last year prior to this. He was treated with a dose of Toradol and morphine IM. Treatment Plan: Patient will be discharged with [place] and naproxen. Instructed to follow-up Dr. Monzon in 1 week if not improving. Return to the emergency department for any worsening symptoms. Disposition: To home in improved and stable condition. Impression: 1. Fall. 2. Low back pain. This note was generated with [employer] dictation software. It may contain incorrect words, spelling, and punctuation that were not noted in review of the chart prior to signing ED Disposition - Plan for ED Patient: Disposition: Home or Assisted Living Instructions: ED Neck Back Pain General Prescriptions: Hydrocodone Bitart/Apap 5-325 [[place] 5MG-325MG] 1 tablet PO Q6H PRN PRN 3 Days #12 tablet PRN Reason: Pain Naproxen [Naprosyn] 500 mg PO BID #14 tablet Referrals: Eric Monzon Chi, MD [Primary Care Provider] - 1 Week if not improving
== END 2018-08-07 14:10 | disposition home or self-care (01) ==
PROVIDERS: Emergency Provider Emergency Medicine; Family Provider Family Medicine Geriatric Medicine; PCP Family Medicine Geriatric Medicine
DX: M54.5 Low back pain (principal); W10.9XXA Fall (on) (from) unspecified stairs and steps, initial encounter; Y93.9 Activity, unspecified; Y92.9 Unspecified place or not applicable; I10 Essential (primary) hypertension; G89.29 Other chronic pain; Z79.899 Other long term (current) drug therapy; F17.200 Nicotine dependence, unspecified, uncomplicated
CPT/HCPCS: 72100; 96372; 99282

== ENCOUNTER → 2018-10-30 | Outpatient (CLI) | payer MEDICAID, SELFPAY | END | disposition home or self-care (01) | LOC: POLAB3 08:48 → LAB.FUTURE 15:58 | PROVIDERS: Family Provider Family Medicine Geriatric Medicine; PCP Family Medicine Geriatric Medicine; Visit Provider Family Medicine Geriatric Medicine | DX: I10 Essential (primary) hypertension (principal) ==